=== PATIENT | female | born 1945 | race Caucasian/White ===

== ENCOUNTER 2021-05-11 11:50 | Inpatient (IN) | payer MEDICARE ==
[~2021-05-11] VITALS: Ht 170.2 cm; Wt 59.4 kg
[~2021-05-11 11:50] MED LIST: BUPR150T21 PO
[2021-05-11] MEDS ORDERED: FLUO20CA20 PO (13:08)
[2021-05-11] MEDS ORDERED: OLAN5TAB67 PO ×2 (13:08)
[2021-05-11] MEDS ORDERED: DIVA-51 PO (13:08)
[2021-05-11] MEDS ORDERED: FERR325T20 PO (13:08)
[2021-05-11] MEDS ORDERED: DIVA125T28 PO (13:08)
[2021-05-11] MEDS ORDERED: GINK120T3 PO (13:08)
[2021-05-11] MEDS ORDERED: CLON0.1T PO (13:08)
[2021-05-11] MEDS ORDERED: ROSUVASTATIN CA20 MG PO (13:08)
[2021-05-11] MEDS ORDERED: MAGN250T10 PO (13:08)
[2021-05-11] MEDS ORDERED: ACET325T21 PO (13:08)
[2021-05-11] MEDS ORDERED: DOCU100T11 PO (13:08)
[2021-05-11] MEDS ORDERED: METO25TA4 PO (13:08)
[2021-05-11] MEDS ORDERED: ASCO100019 PO (13:08)
[2021-05-11] MEDS ORDERED: ALPR0.5T6 PO ×2 (13:08)
[2021-05-11] MEDS ORDERED: OMEP20TA63 PO (13:08)
[2021-05-11] MEDS ORDERED: MULT-98 PO (13:08)
[2021-05-11] MEDS ORDERED: OMEG-33 PO (13:08)
[2021-05-11] MEDS ORDERED: LEVO25TA4 PO (13:08)
[2021-05-11 13:10] VITALS: BP 131/69
[2021-05-11] MEDS ORDERED: ACETAMINOPHEN 325 MG TABLET PO PRN (13:15)
[2021-05-11] MEDS ORDERED: OLANZapine 5 MG TABLET PO PRN (13:15)
[2021-05-11] MEDS ORDERED: MAGNESIUM HYDROXIDE 2,400 MG/30 ML ORAL.SUSP. PO PRN (13:30)
[2021-05-11] MEDS ORDERED: MAG HYDROX/AL HYDROX/SIMETH 30 ML ORAL.SUSP PO PRN (13:30)
[2021-05-11] MEDS ORDERED: METHYL SALICYLATE/MENTHOL TOPICAL OINTMENT 57GM TUBE. TP PRN (13:30)
[2021-05-11 16:00] VITALS: BP 121/60
[2021-05-11] MEDS ORDERED: GINKGO BILOBA 120 MG PO SCH (17:00)
[2021-05-11] MEDS: METOPROLOL TART IMMED RELEASE 25 MG TABLET. PO SCH (17:54)
[2021-05-11] MEDS: DOCUSATE SODIUM 100 MG CAPSULE PO SCH (17:54)
[2021-05-11] MEDS: cloNIDine HCL 0.1 MG TABLET PO SCH (17:56)
[2021-05-11 20:00] VITALS: BP 136/71
[2021-05-11] MEDS: OLANZapine 5 MG TABLET PO SCH (20:27)
[2021-05-11] MEDS ORDERED: DIVALPROEX SODIUM 250 MG TABLET.DR. PO SCH (21:00)
[2021-05-11] MEDS ORDERED: ALPRAZolam 0.5 MG TABLET PO SCH (21:00)
[2021-05-12] MEDS: LEVOTHYROXINE 25 MCG TABLET. PO SCH (06:37)
[2021-05-12] MEDS: FERROUS SULFATE 325 MG TABLET. PO SCH (08:46)
[2021-05-12] MEDS: METOPROLOL TART IMMED RELEASE 25 MG TABLET. PO SCH ×2 (08:46→17:55)
[2021-05-12] MEDS: buPROPion XL 150 MG TAB.ER.24H PO SCH (08:46)
[2021-05-12] MEDS: cloNIDine HCL 0.1 MG TABLET PO SCH ×2 (08:46→17:56)
[2021-05-12] MEDS: MAGNESIUM OXIDE 400 MG TABLET PO SCH (08:46)
[2021-05-12] MEDS: OLANZapine 5 MG TABLET PO SCH ×2 (08:46→21:21)
[2021-05-12] MEDS: OMEGA-3 FATTY ACIDS/FISH OIL 1,000 MG CAPSULE. PO SCH (08:46)
[2021-05-12] MEDS: PANTOPRAZOLE 40 MG TABLET. PO SCH (08:46)
[2021-05-12] MEDS: MULTIVITAMIN with MINERAL TABLET. PO SCH (08:46)
[2021-05-12] MEDS: ATORVASTATIN CALCIUM 20 MG TABLET PO SCH (08:47)
[2021-05-12] MEDS ORDERED: FLU VACC QUAD 21-22 (6MOS+) PF 0.5 ML SYRINGE. VAX IM ONE (09:00)
[2021-05-12] MEDS ORDERED: DIVALPROEX SODIUM 125 MG TABLET.DR. PO SCH (09:00)
[2021-05-12 11:23] LABS: BASO # 0.1 x10^3/uL (0.0-0.2); BASO % 1 % (0-3); EOS # 0.2 x10^3/uL (0.0-0.7); EOS % 3 % (0-3); HEMATOCRIT 33.1 % (36.0-47.0); HEMOGLOBIN 10.8 g/dL (12.0-15.5); LYMPH # 0.7 x10^3/uL (1.0-4.8); LYMPH % 11 % (24-48); MEAN CORPUSCULAR HEMOGLOBIN 29 pg (25-35); MEAN CORPUSCULAR HGB CONC 33 g/dL (31-37); MEAN CORPUSCULAR VOLUME 90 fL (79-100); MONO # 0.5 x10^3/uL (0.0-1.1); MONO % 9 % (0-9); NEUT # 4.5 x10^3uL (1.8-7.7); NEUT % 76 % (31-73); PLATELET COUNT 272 x10^3/uL (140-400); RED BLOOD COUNT 3.68 x10^6/uL (3.50-5.40); RED CELL DISTRIBUTION WIDTH 15.4 % (11.5-14.5); WHITE BLOOD COUNT 5.9 x10^3/uL (4.0-11.0)
[2021-05-12 11:33] LABS: ALBUMIN 3.2 g/dL (3.4-5.0); ALBUMIN/GLOBULIN RATIO 0.7 (1.0-1.7); ALK PHOS 67 U/L (46-116); ALT (SGPT) 32 U/L (14-59); ANION GAP 9 (6-14); AST (SGOT) 28 U/L (15-37); BLOOD UREA NITROGEN 21 mg/dL (7-20); BUN/CREATININE RATIO 19 (6-20); CALCIUM 9.2 mg/dL (8.5-10.1); CARBON DIOXIDE 28 mmol/L (21-32); CHLORIDE 105 mmol/L (98-107); CREATININE 1.1 mg/dL (0.6-1.0); GFR 48.3; GLUCOSE 117 mg/dL (70-99); MAGNESIUM 2.1 mg/dL (1.8-2.4); SODIUM 142 mmol/L (136-145); TOTAL BILIRUBIN 0.3 mg/dL (0.2-1.0); TOTAL PROTEIN 7.7 g/dL (6.4-8.2)
[2021-05-12 11:34] LABS: VAL ACID 37 mcg/mL (50-100)
--- NOTE | 2021-05-12 14:48 | RAD ---
EXAM: Head CT without contrast. HISTORY: Altered mental status. TECHNIQUE: Computed tomographic images of the head were obtained without contrast. *One or more of the following individualized dose reduction techniques were utilized for this examina tion: 1. Automated exposure control. 2. Adjustment of the mA and/or kV according to patient size. 3. Use of iterative reconstruction technique. COMPARISON: None. FINDINGS: There is no acute or subacute extra-axial or intraparenchymal hemorrhage. There is no mass effect or midline shift. There is no hydrocephalus. There are areas of decreased attenuation within the cerebral white matter, nonspecific and likely rel ated to chronic small vessel disease. This is predominantly within the right parietal distribution. The visualized portions of the orbits, paranasal sinuses and mastoid air cells are unremarkable. No s uspicious calvarial lesion is seen. IMPRESSION: 1. No acute intracranial finding. Note is made that MRI is more sensitive for acute infarction. 2. Bilateral cerebral white matter changes, most commonly due to chronic small vessel disease in al ents of this age. Electronically signed by: Shazia Diamond MD (05/12/2021 2:45 PM) [facility]
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
[2021-05-12 15:11] LABS: BACTERIA,URINE FEW /HPF (0-FEW); BILIRUBIN,URINE NEG (NEG); CLARITY,URINE HAZY; COLOR,URINE YELLOW; GLUCOSE,URINE NEG (NEG); NITRITE,URINE NEG (NEG); RBC,URINE OCC /HPF (0-2); SQUAMOUS EPITHELIAL CELL,UR FEW /LPF; UROBILINOGEN,URINE 0.2 mg/dL (0.2 mg/dL)
[2021-05-12 16:20] VITALS: BP 118/71
[2021-05-12] MEDS: ASCORBIC ACID 1,000 MG TABLET PO SCH (17:55)
[2021-05-12] MEDS: DOCUSATE SODIUM 100 MG CAPSULE PO SCH (17:55)
[2021-05-12 18:55] LABS: THYROID STIM HORMONE (TSH) 0.008 uIU/mL (0.358-3.740)
[2021-05-12] MEDS: DIVALPROEX SODIUM 125 MG TABLET.DR. PO SCH (21:20)
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
[2021-05-13 02:07] LABS: THYROXINE 10.8 ug/dL (4.5-12.0)
--- NOTE | 2021-05-13 05:32 | PSYEV ---
DATE OF SERVICE: 05/12/2021 REASON FOR ADMISSION: This 75-year-old female was admitted from [facility] because of behavior problems, being restless, wandering highly anxious, exit-seeking behaviors, called 911. The patient also not sleeping well, having auditory hallucinations. The patient is seen by the primary care doctor. Apparently, she has been treated with antidepressants and made some changes recently. The patient also having multiple physical problems. The patient apparently unable to sleep. The patient apparently did not respond to any change in the medications and failed outpatient treatment. On admission, she was calm, cooperative and pleasantly confused. She was oriented to self and place. PAST PSYCHIATRIC HISTORY: The patient apparently has been treated with psychotropic drugs including Xanax, Wellbutrin that was discontinued recently and also Depakote and Prozac and also Zyprexa. The patient's son is responsible for her care. She has been seeing Dr. Purdy. Recently, she had a 6-month checkup and also she was hospitalized to [facility] for abdominal pain in the past few months. The patient also diagnosed with B-cell lymphoma. The patient has a history of depression, having frequent crying spells. The patient admits to feeling lonely, but denied of any suicidal or homicidal thoughts. PAST MEDICATIONS: Include Wellbutrin-XL 150 mg daily. The dose was gradually decreased and discontinued. The patient is also on Prozac 20 mg daily, mirtazapine 15 mg at night. PAST MEDICAL HISTORY: The patient has history of malignant neoplasm of colon, unspecified; hyperlipidemia; essential hypertension; atherosclerotic heart disease without angina pectoris; abdominal aortic aneurysm and rupture and also mild cognitive impairment. HISTORY OF PRESENT ILLNESS: The patient was pleasant during the assessment. She did know where she was. She was oriented to her surroundings, but the patient had problems with the time span. The patient's speech was clear, monotone, decreased rate and rhythm. Affect and mood showed she is anxious, but not depressed. The patient did not show any involuntary movements. Her speech was clear, monotone, decreased rate and rhythm. Affect and mood showed withdrawn, anxious, periods of agitation, problems with sleep and no change in her appetite. The patient has been treated for depression in the past and has a diagnosis of major depression, single episode. PSYCHOSOCIAL HISTORY: The patient is unable to give much information. Her son is the DPOA. The patient denies of any alcohol or substance abuse. No history of any sexual trauma. MENTAL STATUS EXAMINATION: The patient appeared to be of her stated age, able to make eye contact. The patient's behavior was appropriate during the assessment. Her speech is clear, monotone, decreased rate and rhythm. Affect and mood showed she is depressed, withdrawn and also indifferent to her surroundings. The patient also has episodes where she becomes very agitated, also paranoid and delusional, recently called 911. The patient denies any visual hallucinations or auditory hallucinations. She is oriented to surroundings. The patient has significant problems with memory, mostly recent. The patient is not expressing any suicidal or homicidal thoughts. The patient lacks insight to her problems. Judgment impaired. Insight limited. The patient appears to be functioning on an average level of intelligence. STRENGTH: In good health, supportive family. Son is her DPOA. WEAKNESSES: The patient apparently having problems with mood swings, depression, also irritability, chronic insomnia and also dealing with multiple physical problems. ADMITTING DIAGNOSES: AXIS I: 1. Major depression, single episode, moderate to severe with psychotic symptoms. 2. Cognitive disorder, unspecified. 3. Generalized anxiety disorder. AXIS II: None. AXIS III: Listed above. INITIAL TREATMENT PLAN: The patient will be hospitalized as an inpatient at [facility] for further evaluation and diagnostic workup. The patient will continue on her current medications including Depakote 125 mg in the morning and 250 mg at night. The patient is also on Zyprexa 5 mg twice a day that was decreased to 7.5 mg at night. The patient's other medications include metoprolol 25 mg daily, Prilosec 10 mg daily, clonidine 0.1 mg twice a day, levothyroxine 25 mcg daily, rosuvastatin 20 mg daily, Pepcid 20 mg daily, mirtazapine 15 mg daily. LENGTH OF STAY: 7 to 10 days. PLANS: The patient will continue with the current medications. The patient will be seen by the psychiatrist daily. Follow up by Dr. Bentley, also request for a neurology consult. KIMMY DR: Phillip TID: [id number]
[2021-05-13] MEDS: LEVOTHYROXINE 25 MCG TABLET. PO SCH (05:53)
[2021-05-13 06:38] VITALS: BP 149/71
[2021-05-13] MEDS: PANTOPRAZOLE 40 MG TABLET. PO SCH (08:52)
[2021-05-13] MEDS: cloNIDine HCL 0.1 MG TABLET PO SCH ×2 (08:52→17:32)
[2021-05-13] MEDS: MULTIVITAMIN with MINERAL TABLET. PO SCH (08:53)
[2021-05-13] MEDS: MAGNESIUM OXIDE 400 MG TABLET PO SCH (08:53)
[2021-05-13] MEDS: FERROUS SULFATE 325 MG TABLET. PO SCH (08:53)
[2021-05-13] MEDS: METOPROLOL TART IMMED RELEASE 25 MG TABLET. PO SCH ×2 (08:53→17:31)
[2021-05-13] MEDS: OLANZapine 5 MG TABLET PO SCH ×2 (08:53→20:32)
[2021-05-13] MEDS: OMEGA-3 FATTY ACIDS/FISH OIL 1,000 MG CAPSULE. PO SCH (08:54)
[2021-05-13] MEDS: ATORVASTATIN CALCIUM 20 MG TABLET PO SCH (08:54)
[2021-05-13] MEDS: DIVALPROEX SODIUM 250 MG TABLET.DR. PO SCH (08:54)
[2021-05-13] MEDS: ASCORBIC ACID 1,000 MG TABLET PO SCH (09:00)
--- NOTE | 2021-05-13 10:11 | EKG ---
[address] [address] Test Date: 2021-05-13 Test Time: 05:56:09 Pat Name: ALBERTINA MCCOY Department: Room: [address] [place] [address] Gender: F Train Starter: : [id number] Requested By: KAYCEE GAMBINO Order Number: [id number] Reading MD: Measurements Intervals [place] Rate: 61 P: 46 IA: 160 QRS: 0 QRSD: 80 T: 23 QT: 424 QTc: 428 Interpretive Statements SINUS RHYTHM LEFTWARD AXIS OTHERWISE NORMAL ECG RI6.01 No previous ECG available for comparison
[2021-05-13 15:48] VITALS: BP 114/72
[2021-05-13] MEDS: DOCUSATE SODIUM 100 MG CAPSULE PO SCH (17:31)
[2021-05-13] MEDS: DIVALPROEX SODIUM 125 MG TABLET.DR. PO SCH (20:33)
[2021-05-14] MEDS: ALPRAZolam 0.5 MG TABLET PO PRN ×2 (01:23→23:06)
--- NOTE | 2021-05-14 01:49 | PN ---
DATE: 05/13/2021 SUBJECTIVE: The patient was seen today, met with the staff. Chart was reviewed and also covering for Dr. Packer. Staff reports no major behavior problems except for disorganized thinking, wandering, but social, also intrusive. The patient is able to walk steady. No falls. OBSERVATION: VITAL SIGNS: Temperature 96.5, blood pressure 114/72, pulse 64, respirations 18, O2 sat 96%. The patient's appetite normal. CURRENT MEDICATIONS: Include Depakote 250 mg daily and 375 mg at night, olanzapine 7.5 mg twice a day, Prozac 20 mg daily, Wellbutrin 150 mg daily. She is also on olanzapine 2.5 mg twice a day p.r.n. and also Xanax 0.5 mg every 4 hours p.r.n. The patient is not exhibiting any side effects to medications. ASSESSMENT: 1. Major depressive disorder, single episode, moderate to severe with psychotic features. 2. Cognitive disorder, unspecified. 3. Generalized anxiety disorder. PLAN: To continue with treatment. LENGTH OF STAY: 7-[address]: Phillip TID: [id number]
[2021-05-14] MEDS: LEVOTHYROXINE 25 MCG TABLET. PO SCH (05:54)
[2021-05-14 06:23] VITALS: BP 133/75
[2021-05-14] MEDS: ATORVASTATIN CALCIUM 20 MG TABLET PO SCH (09:40)
[2021-05-14] MEDS: DIVALPROEX SODIUM 250 MG TABLET.DR. PO SCH (09:41)
[2021-05-14] MEDS: buPROPion XL 150 MG TAB.ER.24H PO SCH (09:41)
[2021-05-14] MEDS: ASCORBIC ACID 1,000 MG TABLET PO SCH (09:41)
[2021-05-14] MEDS: FERROUS SULFATE 325 MG TABLET. PO SCH (09:41)
[2021-05-14] MEDS: METOPROLOL TART IMMED RELEASE 25 MG TABLET. PO SCH ×2 (09:42→16:52)
[2021-05-14] MEDS: OLANZapine 5 MG TABLET PO SCH ×2 (09:43→20:35)
[2021-05-14] MEDS: cloNIDine HCL 0.1 MG TABLET PO SCH ×2 (09:44→16:53)
[2021-05-14] MEDS: MULTIVITAMIN with MINERAL TABLET. PO SCH (09:44)
[2021-05-14] MEDS: OMEGA-3 FATTY ACIDS/FISH OIL 1,000 MG CAPSULE. PO SCH (09:44)
[2021-05-14] MEDS: MAGNESIUM OXIDE 400 MG TABLET PO SCH (09:45)
[2021-05-14] MEDS: PANTOPRAZOLE 40 MG TABLET. PO SCH (09:45)
[2021-05-14 15:43] VITALS: BP 118/64
[2021-05-14] MEDS: DOCUSATE SODIUM 100 MG CAPSULE PO SCH (16:52)
[2021-05-14] MEDS: DIVALPROEX SODIUM 125 MG TABLET.DR. PO SCH (20:34)
--- NOTE | 2021-05-14 22:52 | PN ---
DATE: 05/14/2021 SUBJECTIVE: The patient was seen today, met with the staff, chart reviewed. The patient is wandering, high energy level, also exit-seeking behaviors. OBSERVATION: VITAL SIGNS: Temperature 96.7, blood pressure 133/75, pulse 56, respirations 16, O2 sat 99%. Slept about 3 hours last night. The patient's appetite is fair. CURRENT MEDICATIONS: Depakote 250 mg daily and 375 mg at night, olanzapine 7.5 mg twice a day, Cymbalta 20 mg daily, Wellbutrin 150 mg daily and also, olanzapine 2.5 mg twice a day, p.r.n., Xanax 0.5 mg q. 4 hours p.r.n. LABORATORY DATA: The patient's lab reviewed. ASSESSMENT: 1. Major depressive disorder, single episode, moderate to severe with psychotic features. 2. Cognitive disorder, unspecified. 3. Generalized anxiety disorder. PLAN: To continue with the treatment. LENGTH OF STAY: 7-[address]: Phillip TID: [id number]
[2021-05-15] MEDS: LEVOTHYROXINE 25 MCG TABLET. PO SCH (05:18)
[2021-05-15 05:54] VITALS: BP 152/71
[2021-05-15 08:15] LABS: ALBUMIN 3.3 g/dL (3.4-5.0); ALBUMIN/GLOBULIN RATIO 0.7 (1.0-1.7); CALCIUM 9.4 mg/dL (8.5-10.1); CREATININE 1.1 mg/dL (0.6-1.0); GFR 48.3; POTASSIUM 3.7 mmol/L (3.5-5.1); TOTAL BILIRUBIN 0.3 mg/dL (0.2-1.0); TOTAL PROTEIN 7.8 g/dL (6.4-8.2)
[2021-05-15] MEDS: PANTOPRAZOLE 40 MG TABLET. PO SCH (08:51)
[2021-05-15] MEDS: cloNIDine HCL 0.1 MG TABLET PO SCH ×2 (08:51→17:54)
[2021-05-15] MEDS: MULTIVITAMIN with MINERAL TABLET. PO SCH (08:52)
[2021-05-15] MEDS: ASCORBIC ACID 1,000 MG TABLET PO SCH (08:52)
[2021-05-15] MEDS: METOPROLOL TART IMMED RELEASE 25 MG TABLET. PO SCH ×2 (08:52→17:55)
[2021-05-15] MEDS: OMEGA-3 FATTY ACIDS/FISH OIL 1,000 MG CAPSULE. PO SCH (08:52)
[2021-05-15] MEDS: MAGNESIUM OXIDE 400 MG TABLET PO SCH (08:52)
[2021-05-15] MEDS: FERROUS SULFATE 325 MG TABLET. PO SCH (08:52)
[2021-05-15] MEDS: DIVALPROEX SODIUM 250 MG TABLET.DR. PO SCH (08:52)
[2021-05-15] MEDS: OLANZapine 5 MG TABLET PO SCH ×2 (08:52→20:45)
[2021-05-15] MEDS: ATORVASTATIN CALCIUM 20 MG TABLET PO SCH (08:53)
[2021-05-15 15:35] VITALS: BP_SYST 110; BP_SYST 132; BP_DIAS 72; BP_DIAS 77
[2021-05-15] MEDS: DOCUSATE SODIUM 100 MG CAPSULE PO SCH (17:54)
[2021-05-15] MEDS: DIVALPROEX SODIUM 125 MG TABLET.DR. PO SCH (20:45)
--- NOTE | 2021-05-16 03:00 | PN ---
DATE: 05/15/2021 SUBJECTIVE: The patient was seen today, met with the staff, chart reviewed. Staff reports continued behavior problems, wandering, disorganized thinking, disrobing, restless, but medication compliant and also interact with the staff. The patient is overall confused. The patient is lacking insight to her problems. OBSERVATION: VITAL SIGNS: Temperature 97, blood pressure 152/71, pulse 58, respirations 16, O2 sat 97%. GENERAL: Slept about 6 hours last night. The patient's appetite is fair. LABORATORY DATA: The patient's lab reviewed. CURRENT MEDICATIONS: Include Depakote 250 mg daily and 375 mg at night, olanzapine 7.5 mg twice a day, Fluoxetine 20 mg daily, Wellbutrin 150 mg daily and also on olanzapine 2.5 mg twice a day p.r.n., also on Xanax 0.5 mg every 4 hours p.r.n. ASSESSMENT: 1. Major depressive disorder, single episode, moderate to severe with psychotic features. 2. Cognitive disorder, unspecified. 3. Generalized anxiety disorder. PLAN: To continue with the treatment. LENGTH OF STAY: Seven to [address]: Phillip TID: [id number] MTDD
[2021-05-16] MEDS: LEVOTHYROXINE 25 MCG TABLET. PO SCH (05:23)
[2021-05-16 06:28] VITALS: BP 151/67
[2021-05-16 06:41] LABS: BASO # 0.1 x10^3/uL (0.0-0.2); BASO % 1 % (0-3); EOS # 0.3 x10^3/uL (0.0-0.7); EOS % 6 % (0-3); HEMATOCRIT 28.3 % (36.0-47.0); HEMOGLOBIN 9.3 g/dL (12.0-15.5); LYMPH # 0.8 x10^3/uL (1.0-4.8); LYMPH % 19 % (24-48); MEAN CORPUSCULAR HEMOGLOBIN 30 pg (25-35); MEAN CORPUSCULAR HGB CONC 33 g/dL (31-37); MEAN CORPUSCULAR VOLUME 91 fL (79-100); MONO # 0.6 x10^3/uL (0.0-1.1); MONO % 15 % (0-9); NEUT # 2.5 x10^3uL (1.8-7.7); NEUT % 59 % (31-73); PLATELET COUNT 226 x10^3/uL (140-400); RED BLOOD COUNT 3.12 x10^6/uL (3.50-5.40); RED CELL DISTRIBUTION WIDTH 15.4 % (11.5-14.5); WHITE BLOOD COUNT 4.2 x10^3/uL (4.0-11.0)
[2021-05-16 06:51] LABS: VAL ACID 53 mcg/mL (50-100)
[2021-05-16] MEDS: cloNIDine HCL 0.1 MG TABLET PO SCH ×2 (08:23→17:40)
[2021-05-16] MEDS: PANTOPRAZOLE 40 MG TABLET. PO SCH (08:23)
[2021-05-16] MEDS: ATORVASTATIN CALCIUM 20 MG TABLET PO SCH (08:24)
[2021-05-16] MEDS: ASCORBIC ACID 1,000 MG TABLET PO SCH (08:24)
[2021-05-16] MEDS: buPROPion XL 150 MG TAB.ER.24H PO SCH (08:24)
[2021-05-16] MEDS: METOPROLOL TART IMMED RELEASE 25 MG TABLET. PO SCH ×2 (08:24→17:39)
[2021-05-16] MEDS: MAGNESIUM OXIDE 400 MG TABLET PO SCH (08:24)
[2021-05-16] MEDS: MULTIVITAMIN with MINERAL TABLET. PO SCH (08:24)
[2021-05-16] MEDS: OMEGA-3 FATTY ACIDS/FISH OIL 1,000 MG CAPSULE. PO SCH (08:24)
[2021-05-16] MEDS: DIVALPROEX SODIUM 250 MG TABLET.DR. PO SCH (08:25)
[2021-05-16] MEDS: OLANZapine 5 MG TABLET PO SCH ×2 (08:25→20:25)
[2021-05-16] MEDS: FERROUS SULFATE 325 MG TABLET. PO SCH (08:25)
[2021-05-16 16:38] VITALS: BP 131/72
[2021-05-16] MEDS: DOCUSATE SODIUM 100 MG CAPSULE PO SCH (17:39)
[2021-05-16] MEDS: DIVALPROEX SODIUM 125 MG TABLET.DR. PO SCH (20:25)
--- NOTE | 2021-05-17 02:42 | PN ---
DATE: 05/16/2021 SUBJECTIVE: The patient was seen today, met with the staff, chart reviewed. Staff reports increased social withdrawal, tend to isolate in her room, disorganized thinking and also tend to wander and sometimes pacing, sometimes extremely restless. The patient has been medication compliant. The patient is increasingly confused, difficult to redirect. The patient is unable to participate in any activities. The patient also exhibiting significant cognitive deficits. OBSERVATION: VITAL SIGNS: Temperature 97.3, blood pressure 151/67, pulse 59, respirations 16, O2 sat 97%. GENERAL: Slept about 5 hours last night. Appetite fluctuates. LABORATORY DATA: The patient's lab reviewed. CURRENT MEDICATIONS: The patient's current medications include Depakote 250 mg daily and 375 mg at night, olanzapine 7.5 mg twice a day, Fluoxetine 20 mg daily and olanzapine 2.5 mg twice a day p.r.n. She is also on Xanax 0.5 mg q. 4 hours p.r.n. The patient's Wellbutrin was discontinued as planned. ASSESSMENT: 1. Major depressive disorder, single episode, moderate to severe with psychotic features. 2. Cognitive disorder, unspecified. 3. Generalized anxiety disorder. PLAN: Continue with treatment. LENGTH OF STAY: Seven to ten days. [address]RI[address]IANO DR: Phillip TID: [id number] MTDD
[2021-05-17] MEDS: LEVOTHYROXINE 25 MCG TABLET. PO SCH (05:54)
[2021-05-17 06:41] VITALS: BP 146/69
[2021-05-17] MEDS: PANTOPRAZOLE 40 MG TABLET. PO SCH (08:17)
[2021-05-17] MEDS: METOPROLOL TART IMMED RELEASE 25 MG TABLET. PO SCH ×2 (08:17→17:03)
[2021-05-17] MEDS: cloNIDine HCL 0.1 MG TABLET PO SCH ×2 (08:17→17:03)
[2021-05-17] MEDS: DIVALPROEX SODIUM 250 MG TABLET.DR. PO SCH (08:17)
[2021-05-17] MEDS: OLANZapine 5 MG TABLET PO SCH ×2 (08:18→21:51)
[2021-05-17] MEDS: ATORVASTATIN CALCIUM 20 MG TABLET PO SCH (08:18)
[2021-05-17] MEDS: ASCORBIC ACID 1,000 MG TABLET PO SCH (09:00)
[2021-05-17] MEDS: FERROUS SULFATE 325 MG TABLET. PO SCH (09:00)
[2021-05-17] MEDS: OMEGA-3 FATTY ACIDS/FISH OIL 1,000 MG CAPSULE. PO SCH (09:00)
[2021-05-17] MEDS: MULTIVITAMIN with MINERAL TABLET. PO SCH (09:00)
[2021-05-17] MEDS: MAGNESIUM OXIDE 400 MG TABLET PO SCH (09:00)
[2021-05-17] MEDS ORDERED: OLANZapine 5 MG TABLET PO PRN (09:45)
[2021-05-17] MEDS: LORazepam 1 MG TABLET PO PRN (10:52)
[2021-05-17 12:00] LABS: BILIRUBIN,URINE NEG (NEG); CLARITY,URINE CLEAR; COLOR,URINE YELLOW; GLUCOSE,URINE NEG (NEG); NITRITE,URINE NEG (NEG); RBC,URINE 0 /HPF (0-2)
[2021-05-17 12:01] LABS: BACTERIA,URINE FEW /HPF (0-FEW); SQUAMOUS EPITHELIAL CELL,UR OCC /LPF
[2021-05-17 15:23] VITALS: BP_SYST 126; BP_SYST 142; BP_DIAS 78; BP_DIAS 85
[2021-05-17] MEDS: DOCUSATE SODIUM 100 MG CAPSULE PO SCH (17:03)
[2021-05-17] MEDS: DIVALPROEX SODIUM 125 MG TABLET.DR. PO SCH (21:53)
--- NOTE | 2021-05-18 03:44 | PN ---
DATE: 05/17/2021 SUBJECTIVE: The patient was seen today, met with the staff and chart reviewed. Also discussed with the social contact worker with regard to the patient's current mental status and continued authorization for inpatient treatment. Apparently insurance company wanted the doctors' review. The patient continues to have problems. She is hyperverbal, agitated, constantly pacing and also having visual hallucinations, seeing a dog and also confused, not able to orient herself. The patient's gait is normal. OBSERVATION: VITAL SIGNS: Temperature 97.8, blood pressure 146/69, pulse 72, respirations 18, O2 sat 95%. GENERAL: Slept about less than an hour last night. LABORATORY DATA: The patient's lab reviewed. CURRENT MEDICATIONS: Depakote 250 mg daily and 375 mg at night, olanzapine 7.5 mg twice a day, Prozac 20 mg daily and olanzapine 2.5 mg twice a day p.r.n. She is also on Xanax 0.5 mg q. 4 hours p.r.n. ASSESSMENT: 1. Major depressive disorder, single episode, moderate to severe with psychotic features. 2. Cognitive disorder, unspecified. 3. Generalized anxiety disorder. PLAN: To continue with treatment. LENGTH OF STAY: Seven days. CHRISTIANO/LIVAN DR: Phillip TID: [id number]
[2021-05-18] MEDS: LEVOTHYROXINE 25 MCG TABLET. PO SCH (05:48)
[2021-05-18 06:44] VITALS: BP 169/69
[2021-05-18] MEDS: PANTOPRAZOLE 40 MG TABLET. PO SCH (08:32)
[2021-05-18] MEDS: cloNIDine HCL 0.1 MG TABLET PO SCH ×2 (08:32→16:58)
[2021-05-18] MEDS: MAGNESIUM OXIDE 400 MG TABLET PO SCH (08:32)
[2021-05-18] MEDS: METOPROLOL TART IMMED RELEASE 25 MG TABLET. PO SCH ×2 (08:33→16:58)
[2021-05-18] MEDS: OLANZapine 5 MG TABLET PO SCH ×2 (08:33→21:44)
[2021-05-18] MEDS: OMEGA-3 FATTY ACIDS/FISH OIL 1,000 MG CAPSULE. PO SCH (08:33)
[2021-05-18] MEDS: MULTIVITAMIN with MINERAL TABLET. PO SCH (08:33)
[2021-05-18] MEDS: ASCORBIC ACID 1,000 MG TABLET PO SCH (08:34)
[2021-05-18] MEDS: DIVALPROEX SODIUM 250 MG TABLET.DR. PO SCH (08:34)
[2021-05-18] MEDS: FERROUS SULFATE 325 MG TABLET. PO SCH (08:34)
[2021-05-18] MEDS: ATORVASTATIN CALCIUM 20 MG TABLET PO SCH (08:34)
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
[2021-05-18 16:06] VITALS: BP 112/49
[2021-05-18] MEDS: DOCUSATE SODIUM 100 MG CAPSULE PO SCH (16:58)
[2021-05-18] MEDS: MIRTAZAPINE 7.5 MG TABLET. PO SCH (21:44)
[2021-05-18] MEDS: DIVALPROEX SODIUM 125 MG TABLET.DR. PO SCH (21:44)
--- NOTE | 2021-05-18 22:19 | PDOC ---
Exam Note: Sam Note: Please also refer to the separate dictated note~for this date of service dictated separately.~Patient seen individually. Discussed the patient with Nursing staff reviewed the chart.~Reviewed interim history and current functioning. Reviewed vital signs,~Labs/ Radiology~and current medications noted below. Continue current treatment with the changes noted in the dictated addendum note Assessment: Vital Signs/I&O: Vital Signs Date Time Temp Pulse Resp B/P (MAP) Pulse Ox O2 Delivery O2 Flow Rate FiO2 05/18/21 16:58 70 112/49 05/18/21 16:06 98.2 20 96 05/16/21 06:28 Room Air I & O 05/17/21 05/17/21 05/18/21 15:00 23:00 07:00 Intake Total 360 ml 240 ml 240 ml Balance 360 ml 240 ml 240 ml Current Medications: Meds: Current Medications Medications (Trade) Dose Ordered Sig/Jordan Route PRN Reason Start Time Stop Time Status Last Admin Dose Admin Acetaminophen (Tylenol) 650 mg PRN Q4HRS PRN PO PAIN 05/11/21 13:15 05/16/21 13:53 Alprazolam (Xanax) 0.5 mg PRN Q4HRS PRN PO ANXIETY / AGITATION 05/11/21 13:15 05/17/21 09:41 DC 05/14/21 23:06 Alprazolam (Xanax) 0.5 mg QHS PO 05/11/21 21:00 05/12/21 13:43 DC 05/11/21 20:27 Ascorbic Acid (Vitamin C) 1,000 mg DAILY PO 05/12/21 09:00 05/18/21 08:34 Bupropion HCl (Wellbutrin Xl) 150 mg QODAY PO 05/12/21 09:00 05/16/21 09:01 DC 05/16/21 08:24 Clonidine HCl (Catapres) 0.1 mg BIDWMEALS PO 05/11/21 17:00 05/18/21 16:58 Divalproex Sodium (Depakote) 125 mg DAILY PO 05/12/21 09:00 05/12/21 13:43 DC 05/12/21 08:46 Divalproex Sodium (Depakote) 250 mg QHS PO 05/11/21 21:00 05/12/21 13:43 DC 05/11/21 20:29 Ferrous Sulfate (Feosol) 325 mg DAILY PO 05/12/21 09:00 05/18/21 08:34 Fluoxetine HCl (PROzac) 20 mg DAILY PO 05/12/21 09:00 05/18/21 08:34 Levothyroxine Sodium (Synthroid) 25 mcg DAILY06 PO 05/12/21 06:00 05/18/21 05:48 Metoprolol Tartrate (Lopressor) 25 mg BIDWMEALS PO 05/11/21 17:00 05/18/21 16:58 Olanzapine (ZyPREXA) 2.5 mg PRN BID PRN PO PSYCHOSIS 05/11/21 13:15 05/17/21 09:40 DC Olanzapine (ZyPREXA) 5 mg BID PO 05/11/21 21:00 05/12/21 13:43 DC 05/12/21 08:46 Docusate Sodium (Colace) 100 mg 1700 PO 05/11/21 17:00 05/18/21 16:58 Non-Formulary Medication (Ginkgo Biloba ) 120 mg BIDWMEALS PO 05/11/21 17:00 UNV Magnesium Oxide (Magnesium Oxide) 400 mg DAILY PO 05/12/21 09:00 05/18/21 08:32 Multivitamins/ Calcium (Thera-M Plus) 1 tab DAILY PO 05/12/21 09:00 05/18/21 08:33 Fish Oil (Fish Oil) 1,000 mg DAILY PO 05/12/21 09:00 05/18/21 08:33 Pantoprazole Sodium (Protonix) 40 mg DAILYAC PO 05/12/21 07:30 05/18/21 08:32 Atorvastatin Calcium (Lipitor) 80 mg DAILY PO 05/12/21 09:00 05/18/21 08:34 Multi-Ingredient Ointment (Analgesic [place]) 1 wendy PRN QID PRN TP MUSCLE PAIN 05/11/21 13:30 Al Hydroxide/Mg Hydroxide (Mylanta Plus Xs) 15 ml PRN AFTMEALHC PRN PO DYSPEPSIA 05/11/21 13:30 Magnesium Hydroxide (Milk Of Magnesia) 2,400 mg PRN QHS PRN PO CONSTIPATION 05/11/21 13:30 Influenza Virus Vaccine Quadrival (Flulaval Quad Syringe) 0.5 ml ONCE ONCE VAX IM 05/12/21 09:00 05/12/21 09:01 DC 05/12/21 08:49 Divalproex Sodium (Depakote) 375 mg QHS PO 05/12/21 21:00 05/17/21 16:53 DC 05/16/21 20:25 Divalproex Sodium (Depakote) 250 mg DAILY PO 05/13/21 09:00 05/18/21 08:34 Olanzapine (ZyPREXA) 7.5 mg BID PO 05/12/21 21:00 05/18/21 21:44 Olanzapine (ZyPREXA) 2.5 mg PRN Q2HR PRN PO PSYCHOSIS 05/17/21 09:45 05/17/21 10:39 DC Lorazepam (Ativan) 1 mg PRN TID PRN PO ANXIETY / AGITATION 05/17/21 09:45 05/17/21 10:52 Olanzapine (ZyPREXA ZYDIS) 2.5 mg PRN Q2HRS PRN PO PSYCHOSIS 05/17/21 10:45 Divalproex Sodium (Depakote) 500 mg QHS PO 05/17/21 21:00 05/18/21 21:44 Mirtazapine (Remeron) 7.5 mg QHS PO 05/18/21 21:00 05/18/21 21:44 Current Medications Medications (Trade) Dose Ordered Sig/Jordan Route PRN Reason Start Time Stop Time Status Last Admin Dose Admin Mirtazapine (Remeron) 7.5 mg QHS PO 05/18/21 21:00 05/18/21 21:44 I have reviewed the current psychotropics carefully including drug interactions. Risk benefit ratio favors no change other than as noted in my dictated progress note. Diagnosis: Problems: (1) Major neurocognitive disorder EDUARDO YBARRA MD May 18, 2021 22:18
[2021-05-19] MEDS: LEVOTHYROXINE 25 MCG TABLET. PO SCH (06:00)
[2021-05-19 06:07] VITALS: BP 120/64
[2021-05-19 06:19] LABS: BASO % 1 % (0-3); EOS # 0.3 x10^3/uL (0.0-0.7); EOS % 6 % (0-3); HEMATOCRIT 28.8 % (36.0-47.0); HEMOGLOBIN 9.3 g/dL (12.0-15.5); LYMPH % 20 % (24-48); MEAN CORPUSCULAR HEMOGLOBIN 30 pg (25-35); MEAN CORPUSCULAR HGB CONC 32 g/dL (31-37); MEAN CORPUSCULAR VOLUME 91 fL (79-100); MONO # 0.8 x10^3/uL (0.0-1.1); MONO % 16 % (0-9); NEUT # 2.8 x10^3uL (1.8-7.7); NEUT % 57 % (31-73); PLATELET COUNT 228 x10^3/uL (140-400); RED BLOOD COUNT 3.16 x10^6/uL (3.50-5.40); RED CELL DISTRIBUTION WIDTH 15.3 % (11.5-14.5); WHITE BLOOD COUNT 4.9 x10^3/uL (4.0-11.0)
[2021-05-19 06:31] LABS: ALBUMIN 2.5 g/dL (3.4-5.0); ALBUMIN/GLOBULIN RATIO 0.7 (1.0-1.7); CALCIUM 8.6 mg/dL (8.5-10.1); GFR 53.9; TOTAL BILIRUBIN 0.2 mg/dL (0.2-1.0); TOTAL PROTEIN 6.3 g/dL (6.4-8.2)
[2021-05-19] MEDS: MULTIVITAMIN with MINERAL TABLET. PO SCH (11:10)
[2021-05-19] MEDS: ASCORBIC ACID 1,000 MG TABLET PO SCH (11:10)
[2021-05-19] MEDS: OLANZapine 5 MG TABLET PO SCH (11:11)
[2021-05-19] MEDS: cloNIDine HCL 0.1 MG TABLET PO SCH ×2 (11:11→17:20)
[2021-05-19] MEDS: OMEGA-3 FATTY ACIDS/FISH OIL 1,000 MG CAPSULE. PO SCH (11:11)
[2021-05-19] MEDS: PANTOPRAZOLE 40 MG TABLET. PO SCH (11:11)
[2021-05-19] MEDS: MAGNESIUM OXIDE 400 MG TABLET PO SCH (11:11)
[2021-05-19] MEDS: FERROUS SULFATE 325 MG TABLET. PO SCH (11:11)
[2021-05-19] MEDS: METOPROLOL TART IMMED RELEASE 25 MG TABLET. PO SCH ×2 (11:11→17:20)
[2021-05-19] MEDS: DIVALPROEX SODIUM 250 MG TABLET.DR. PO SCH (11:12)
[2021-05-19] MEDS: ATORVASTATIN CALCIUM 20 MG TABLET PO SCH (11:12)
[2021-05-19 16:08] VITALS: BP 124/74
[2021-05-19] MEDS: DOCUSATE SODIUM 100 MG CAPSULE PO SCH (17:16)
[2021-05-19] MEDS: MIRTAZAPINE 7.5 MG TABLET. PO SCH (20:39)
[2021-05-19] MEDS: OLANZapine 2.5 MG TABLET PO SCH (20:39)
[2021-05-19] MEDS: risperiDONE 0.5 MG TABLET. PO SCH (20:39)
[2021-05-19] MEDS: DIVALPROEX SODIUM 125 MG TABLET.DR. PO SCH (20:40)
--- NOTE | 2021-05-19 22:10 | PDOC ---
Exam Note: Sam Note: Please also refer to the separate dictated note~for this date of service dictated separately.~Patient seen individually. Discussed the patient with Nursing staff reviewed the chart.~Reviewed interim history and current functioning. Reviewed vital signs,~Labs/ Radiology~and current medications noted below. Continue current treatment with the changes noted in the dictated addendum note Assessment: Vital Signs/I&O: Vital Signs Date Time Temp Pulse Resp B/P (MAP) Pulse Ox O2 Delivery O2 Flow Rate FiO2 05/19/21 17:20 65 124/74 05/19/21 16:08 97.4 14 94 05/16/21 06:28 Room Air I & O 05/18/21 05/18/21 05/19/21 15:00 23:00 07:00 Intake Total 430 ml 480 ml Balance 430 ml 480 ml Labs: Laboratory Tests Test 05/19/21 06:02 White Blood Count 4.9 x10^3/uL (4.0-11.0) Red Blood Count 3.16 x10^6/uL (3.50-5.40) L Hemoglobin 9.3 g/dL (12.0-15.5) L Hematocrit 28.8 % (36.0-47.0) L Mean Corpuscular Volume 91 fL (79-100) Mean Corpuscular Hemoglobin 30 pg (25-35) Mean Corpuscular Hemoglobin Concent 32 g/dL (31-37) Red Cell Distribution Width 15.3 % (11.5-14.5) H Platelet Count 228 x10^3/uL (140-400) Neutrophils (%) (Auto) 57 % (31-73) Lymphocytes (%) (Auto) 20 % (24-48) L Monocytes (%) (Auto) 16 % (0-9) H Eosinophils (%) (Auto) 6 % (0-3) H Basophils (%) (Auto) 1 % (0-3) Neutrophils # (Auto) 2.8 x10^3uL (1.8-7.7) Lymphocytes # (Auto) 1.0 x10^3/uL (1.0-4.8) Monocytes # (Auto) 0.8 x10^3/uL (0.0-1.1) Eosinophils # (Auto) 0.3 x10^3/uL (0.0-0.7) Basophils # (Auto) 0.0 x10^3/uL (0.0-0.2) Sodium Level 144 mmol/L (136-145) Potassium Level 4.0 mmol/L (3.5-5.1) Chloride Level 109 mmol/L (98-107) H Carbon Dioxide Level 29 mmol/L (21-32) Anion Gap 6 (6-14) Blood Urea Nitrogen 16 mg/dL (7-20) Creatinine 1.0 mg/dL (0.6-1.0) Estimated GFR (Cockcroft-Gault) 53.9 BUN/Creatinine Ratio 16 (6-20) Glucose Level 95 mg/dL (70-99) Calcium Level 8.6 mg/dL (8.5-10.1) Total Bilirubin 0.2 mg/dL (0.2-1.0) Aspartate Amino Transferase (AST) 96 U/L (15-37) H Alanine Aminotransferase (ALT) 60 U/L (14-59) H Alkaline Phosphatase 53 U/L (46-116) Total Protein 6.3 g/dL (6.4-8.2) L Albumin 2.5 g/dL (3.4-5.0) L Albumin/Globulin Ratio 0.7 (1.0-1.7) L Current Medications: Meds: Laboratory Tests Test 05/19/21 06:02 White Blood Count 4.9 x10^3/uL Red Blood Count 3.16 x10^6/uL Hemoglobin 9.3 g/dL Hematocrit 28.8 % Mean Corpuscular Volume 91 fL Mean Corpuscular Hemoglobin 30 pg Mean Corpuscular Hemoglobin Concent 32 g/dL Red Cell Distribution Width 15.3 % Platelet Count 228 x10^3/uL Neutrophils (%) (Auto) 57 % Lymphocytes (%) (Auto) 20 % Monocytes (%) (Auto) 16 % Eosinophils (%) (Auto) 6 % Basophils (%) (Auto) 1 % Neutrophils # (Auto) 2.8 x10^3uL Lymphocytes # (Auto) 1.0 x10^3/uL Monocytes # (Auto) 0.8 x10^3/uL Eosinophils # (Auto) 0.3 x10^3/uL Basophils # (Auto) 0.0 x10^3/uL Sodium Level 144 mmol/L Potassium Level 4.0 mmol/L Chloride Level 109 mmol/L Carbon Dioxide Level 29 mmol/L Anion Gap 6 Blood Urea Nitrogen 16 mg/dL Creatinine 1.0 mg/dL Estimated GFR (Cockcroft-Gault) 53.9 BUN/Creatinine Ratio 16 Glucose Level 95 mg/dL Calcium Level 8.6 mg/dL Total Bilirubin 0.2 mg/dL Aspartate Amino Transf (AST/SGOT) 96 U/L Alanine Aminotransferase (ALT/SGPT) 60 U/L Alkaline Phosphatase 53 U/L Total Protein 6.3 g/dL Albumin 2.5 g/dL Albumin/Globulin Ratio 0.7 Current Medications Medications (Trade) Dose Ordered Sig/Jordan Route PRN Reason Start Time Stop Time Status Last Admin Dose Admin Acetaminophen (Tylenol) 650 mg PRN Q4HRS PRN PO PAIN 05/11/21 13:15 05/16/21 13:53 Alprazolam (Xanax) 0.5 mg PRN Q4HRS PRN PO ANXIETY / AGITATION 05/11/21 13:15 05/17/21 09:41 DC 05/14/21 23:06 Alprazolam (Xanax) 0.5 mg QHS PO 05/11/21 21:00 05/12/21 13:43 DC 05/11/21 20:27 Ascorbic Acid (Vitamin C) 1,000 mg DAILY PO 05/12/21 09:00 05/19/21 11:10 Bupropion HCl (Wellbutrin Xl) 150 mg QODAY PO 05/12/21 09:00 05/16/21 09:01 DC 05/16/21 08:24 Clonidine HCl (Catapres) 0.1 mg BIDWMEALS PO 05/11/21 17:00 05/19/21 17:20 Divalproex Sodium (Depakote) 125 mg DAILY PO 05/12/21 09:00 05/12/21 13:43 DC 05/12/21 08:46 Divalproex Sodium (Depakote) 250 mg QHS PO 05/11/21 21:00 05/12/21 13:43 DC 05/11/21 20:29 Ferrous Sulfate (Feosol) 325 mg DAILY PO 05/12/21 09:00 05/19/21 11:11 Fluoxetine HCl (PROzac) 20 mg DAILY PO 05/12/21 09:00 05/19/21 11:11 Levothyroxine Sodium (Synthroid) 25 mcg DAILY06 PO 05/12/21 06:00 05/19/21 06:00 Metoprolol Tartrate (Lopressor) 25 mg BIDWMEALS PO 05/11/21 17:00 05/19/21 17:20 Olanzapine (ZyPREXA) 2.5 mg PRN BID PRN PO PSYCHOSIS 05/11/21 13:15 05/17/21 09:40 DC Olanzapine (ZyPREXA) 5 mg BID PO 05/11/21 21:00 05/12/21 13:43 DC 05/12/21 08:46 Docusate Sodium (Colace) 100 mg 1700 PO 05/11/21 17:00 05/19/21 17:16 Non-Formulary Medication (Ginkgo Biloba ) 120 mg BIDWMEALS PO 05/11/21 17:00 UNV Magnesium Oxide (Magnesium Oxide) 400 mg DAILY PO 05/12/21 09:00 05/19/21 11:11 Multivitamins/ Calcium (Thera-M Plus) 1 tab DAILY PO 05/12/21 09:00 05/19/21 11:10 Fish Oil (Fish Oil) 1,000 mg DAILY PO 05/12/21 09:00 05/19/21 11:11 Pantoprazole Sodium (Protonix) 40 mg DAILYAC PO 05/12/21 07:30 05/19/21 11:11 Atorvastatin Calcium (Lipitor) 80 mg DAILY PO 05/12/21 09:00 05/19/21 11:12 Multi-Ingredient Ointment (Analgesic [place]) 1 wendy PRN QID PRN TP MUSCLE PAIN 05/11/21 13:30 Al Hydroxide/Mg Hydroxide (Mylanta Plus Xs) 15 ml PRN AFTMEALHC PRN PO DYSPEPSIA 05/11/21 13:30 Magnesium Hydroxide (Milk Of Magnesia) 2,400 mg PRN QHS PRN PO CONSTIPATION 05/11/21 13:30 Influenza Virus Vaccine Quadrival (Flulaval Quad Syringe) 0.5 ml ONCE ONCE VAX IM 05/12/21 09:00 05/12/21 09:01 DC 05/12/21 08:49 Divalproex Sodium (Depakote) 375 mg QHS PO 05/12/21 21:00 05/17/21 16:53 DC 05/16/21 20:25 Divalproex Sodium (Depakote) 250 mg DAILY PO 05/13/21 09:00 05/19/21 11:12 Olanzapine (ZyPREXA) 7.5 mg BID PO 05/12/21 21:00 05/19/21 18:31 DC 05/19/21 11:11 Olanzapine (ZyPREXA) 2.5 mg PRN Q2HR PRN PO PSYCHOSIS 05/17/21 09:45 05/17/21 10:39 DC Lorazepam (Ativan) 1 mg PRN TID PRN PO ANXIETY / AGITATION 05/17/21 09:45 05/17/21 10:52 Olanzapine (ZyPREXA ZYDIS) 2.5 mg PRN Q2HRS PRN PO PSYCHOSIS 05/17/21 10:45 Divalproex Sodium (Depakote) 500 mg QHS PO 05/17/21 21:00 05/19/21 20:40 Mirtazapine (Remeron) 7.5 mg QHS PO 05/18/21 21:00 05/19/21 20:39 Olanzapine (ZyPREXA) 2.5 mg BID PO 05/19/21 21:00 05/19/21 20:39 Risperidone (RisperDAL) 0.5 mg QHS PO 05/19/21 21:00 05/19/21 20:39 Current Medications Medications (Trade) Dose Ordered Sig/Jordan Route PRN Reason Start Time Stop Time Status Last Admin Dose Admin Olanzapine (ZyPREXA) 2.5 mg BID PO 05/19/21 21:00 05/19/21 20:39 Risperidone (RisperDAL) 0.5 mg QHS PO 05/19/21 21:00 05/19/21 20:39 I have reviewed the current psychotropics carefully including drug interactions. Risk benefit ratio favors no change other than as noted in my dictated progress note. Diagnosis: Problems: (1) Major depressive disorder with psychotic features (2) Anxiety disorder, unspecified EDUARDO YBARRA MD May 19, 2021 22:10
--- NOTE | 2021-05-19 22:35 | CONS ---
DATE OF CONSULTATION: 05/18/2021 PSYCHIATRIC PROGRESS NOTE This is a late entry, date of service 05/18, covers elements not covered in my initial note of 05/18. I met with the patient in the evening at length and earlier in the day discussed the patient with the entire treatment team including CAREY Alexander, Laverne Patino Nikki, social service and Brody, activity therapy. Reviewed the patient's history and reviewed information from Dr. Cordova who had covered for me for the past 10 days while I was on vacation. IDENTIFYING DATA: Briefly, the patient is a 75-year-old female referred to us from the assisted living at [facility] with a diagnosis of major neurocognitive disorder with psychotic features and behavioral disturbance. 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 The patient has appeared intermittently manic with intermittent hallucinations and while at the facility she had marked insomnia, was hallucinating, restless, wandering, anxious, exit seeking, calling 911 to report she was being held against her will. Her behaviors have been deemed dangerous, unmanageable resulting in this referral. Currently, the patient continued to sleep poorly just about average 5 hours a night or less. Appetite 50% with ongoing intermittent hallucinations, manic symptoms. A repeat UA was contaminated, but repeat urine after that has reflex to culture, which may explain some of her symptoms consequent to a UTI. She is also being considered to move to different [facility] and [facility] when she is psychiatrically stabilized. Met with her in the hallway at length. REVIEW OF SYSTEMS: No CV, , pulmonary, eye, ENT system symptoms on review. Reliability poor. MENTAL STATUS EXAM: Oriented to herself. Insight, judgment, recent and remote memory, attention, concentration, fund of knowledge poor consistent with her diagnosis. She is paranoid, suspicious, anxious, restless, following me around even after I met with her at some length. Oblivious of her surroundings. LABORATORY DATA: Reviewed. 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 PLAN: Given her marked insomnia, we will start Remeron 7.5 mg p.o. at bedtime. She is on Zyprexa 7.5 mg b.i.d., but psychotic symptoms persist despite this. We will add Risperdal 0.25 mg at bedtime with a plan to increase this gradually and taper and stop the Zyprexa ultimately. I do feel Risperdal would be a more effective atypical antipsychotic than the Zyprexa, which she seemed to have failed at a fairly reasonable dosage. She remains on Depakote delayed release 250 mg a.m., 500 mg at bedtime with CBC, CMP, valproic acid level to be repeated on 05/20 and we will adjust this thereafter. Continue Prozac 20 mg a day, Ativan 1 mg t.i.d. p.r.n., but given her age and overall condition, we may reduce this and stop the benzodiazepine and perhaps continue the Zyprexa p.r.n. We will make further adjustments as clinically indicated. TOD DR: Emiliano TID: [id number]
[2021-05-20] MEDS: LORazepam 1 MG TABLET PO PRN ×2 (01:05→23:31)
[2021-05-20] MEDS: LEVOTHYROXINE 25 MCG TABLET. PO SCH (05:08)
[2021-05-20 06:05] VITALS: BP 135/75
[2021-05-20 07:03] LABS: BASO # 0.1 x10^3/uL (0.0-0.2); BASO % 1 % (0-3); EOS # 0.2 x10^3/uL (0.0-0.7); EOS % 3 % (0-3); HEMATOCRIT 32.6 % (36.0-47.0); HEMOGLOBIN 10.5 g/dL (12.0-15.5); LYMPH # 0.8 x10^3/uL (1.0-4.8); LYMPH % 11 % (24-48); MEAN CORPUSCULAR HEMOGLOBIN 29 pg (25-35); MEAN CORPUSCULAR HGB CONC 32 g/dL (31-37); MEAN CORPUSCULAR VOLUME 91 fL (79-100); MONO # 0.9 x10^3/uL (0.0-1.1); MONO % 14 % (0-9); NEUT # 4.9 x10^3uL (1.8-7.7); NEUT % 71 % (31-73); PLATELET COUNT 298 x10^3/uL (140-400); RED BLOOD COUNT 3.59 x10^6/uL (3.50-5.40); RED CELL DISTRIBUTION WIDTH 15.5 % (11.5-14.5); WHITE BLOOD COUNT 6.9 x10^3/uL (4.0-11.0)
[2021-05-20 07:17] LABS: ALBUMIN 2.9 g/dL (3.4-5.0); ALBUMIN/GLOBULIN RATIO 0.7 (1.0-1.7); ALK PHOS 61 U/L (46-116); ALT (SGPT) 74 U/L (14-59); ANION GAP 7 (6-14); AST (SGOT) 79 U/L (15-37); BLOOD UREA NITROGEN 20 mg/dL (7-20); BUN/CREATININE RATIO 20 (6-20); CALCIUM 8.9 mg/dL (8.5-10.1); CARBON DIOXIDE 29 mmol/L (21-32); CHLORIDE 107 mmol/L (98-107); GFR 53.9; GLUCOSE 107 mg/dL (70-99); POTASSIUM 4.4 mmol/L (3.5-5.1); SODIUM 143 mmol/L (136-145); TOTAL BILIRUBIN 0.2 mg/dL (0.2-1.0); TOTAL PROTEIN 7.2 g/dL (6.4-8.2)
[2021-05-20 07:21] LABS: VAL ACID 76 mcg/mL (50-100)
[2021-05-20] MEDS: ASCORBIC ACID 1,000 MG TABLET PO SCH (09:07)
[2021-05-20] MEDS: PANTOPRAZOLE 40 MG TABLET. PO SCH (09:07)
[2021-05-20] MEDS: MAGNESIUM OXIDE 400 MG TABLET PO SCH (09:07)
[2021-05-20] MEDS: MULTIVITAMIN with MINERAL TABLET. PO SCH (09:07)
[2021-05-20] MEDS: OMEGA-3 FATTY ACIDS/FISH OIL 1,000 MG CAPSULE. PO SCH (09:07)
[2021-05-20] MEDS: METOPROLOL TART IMMED RELEASE 25 MG TABLET. PO SCH ×2 (09:07→17:39)
[2021-05-20] MEDS: FERROUS SULFATE 325 MG TABLET. PO SCH (09:07)
[2021-05-20] MEDS: DIVALPROEX SODIUM 250 MG TABLET.DR. PO SCH (09:07)
[2021-05-20] MEDS: OLANZapine 2.5 MG TABLET PO SCH ×2 (09:07→20:13)
[2021-05-20] MEDS: cloNIDine HCL 0.1 MG TABLET PO SCH ×2 (09:08→17:40)
[2021-05-20] MEDS: ATORVASTATIN CALCIUM 20 MG TABLET PO SCH (09:08)
[2021-05-20 15:55] VITALS: BP 147/72
[2021-05-20] MEDS: DOCUSATE SODIUM 100 MG CAPSULE PO SCH (17:39)
[2021-05-20] MEDS: DIVALPROEX SODIUM 125 MG TABLET.DR. PO SCH (20:12)
[2021-05-20] MEDS: MIRTAZAPINE 7.5 MG TABLET. PO SCH (20:13)
[2021-05-20] MEDS: risperiDONE 0.5 MG TABLET. PO SCH (20:13)
--- NOTE | 2021-05-20 22:10 | PDOC ---
Exam Note: Sam Note: Please also refer to the separate dictated note~for this date of service dictated separately.~Patient seen individually. Discussed the patient with Nursing staff reviewed the chart.~Reviewed interim history and current functioning. Reviewed vital signs,~Labs/ Radiology~and current medications noted below. Continue current treatment with the changes noted in the dictated addendum note Assessment: Vital Signs/I&O: Vital Signs Date Time Temp Pulse Resp B/P (MAP) Pulse Ox O2 Delivery O2 Flow Rate FiO2 05/20/21 17:40 58 147/72 05/20/21 15:55 97.2 17 97 Room Air I & O 05/19/21 05/19/21 05/20/21 15:00 23:00 07:00 Intake Total 440 ml 60 ml 240 ml Balance 440 ml 60 ml 240 ml Labs: Laboratory Tests Test 05/20/21 06:46 White Blood Count 6.9 x10^3/uL (4.0-11.0) Red Blood Count 3.59 x10^6/uL (3.50-5.40) Hemoglobin 10.5 g/dL (12.0-15.5) L Hematocrit 32.6 % (36.0-47.0) L Mean Corpuscular Volume 91 fL (79-100) Mean Corpuscular Hemoglobin 29 pg (25-35) Mean Corpuscular Hemoglobin Concent 32 g/dL (31-37) Red Cell Distribution Width 15.5 % (11.5-14.5) H Platelet Count 298 x10^3/uL (140-400) Neutrophils (%) (Auto) 71 % (31-73) Lymphocytes (%) (Auto) 11 % (24-48) L Monocytes (%) (Auto) 14 % (0-9) H Eosinophils (%) (Auto) 3 % (0-3) Basophils (%) (Auto) 1 % (0-3) Neutrophils # (Auto) 4.9 x10^3uL (1.8-7.7) Lymphocytes # (Auto) 0.8 x10^3/uL (1.0-4.8) L Monocytes # (Auto) 0.9 x10^3/uL (0.0-1.1) Eosinophils # (Auto) 0.2 x10^3/uL (0.0-0.7) Basophils # (Auto) 0.1 x10^3/uL (0.0-0.2) Sodium Level 143 mmol/L (136-145) Potassium Level 4.4 mmol/L (3.5-5.1) Chloride Level 107 mmol/L (98-107) Carbon Dioxide Level 29 mmol/L (21-32) Anion Gap 7 (6-14) Blood Urea Nitrogen 20 mg/dL (7-20) Creatinine 1.0 mg/dL (0.6-1.0) Estimated GFR (Cockcroft-Gault) 53.9 BUN/Creatinine Ratio 20 (6-20) Glucose Level 107 mg/dL (70-99) H Calcium Level 8.9 mg/dL (8.5-10.1) Total Bilirubin 0.2 mg/dL (0.2-1.0) Aspartate Amino Transferase (AST) 79 U/L (15-37) H Alanine Aminotransferase (ALT) 74 U/L (14-59) H Alkaline Phosphatase 61 U/L (46-116) Total Protein 7.2 g/dL (6.4-8.2) Albumin 2.9 g/dL (3.4-5.0) L Albumin/Globulin Ratio 0.7 (1.0-1.7) L Valproic Acid Level 76 mcg/mL (50-100) Valproic Acid Last Dose Date 05/19/21 Valproic Acid Last Dose Time 2100 Current Medications: Meds: Laboratory Tests Test 05/20/21 06:46 White Blood Count 6.9 x10^3/uL Red Blood Count 3.59 x10^6/uL Hemoglobin 10.5 g/dL Hematocrit 32.6 % Mean Corpuscular Volume 91 fL Mean Corpuscular Hemoglobin 29 pg Mean Corpuscular Hemoglobin Concent 32 g/dL Red Cell Distribution Width 15.5 % Platelet Count 298 x10^3/uL Neutrophils (%) (Auto) 71 % Lymphocytes (%) (Auto) 11 % Monocytes (%) (Auto) 14 % Eosinophils (%) (Auto) 3 % Basophils (%) (Auto) 1 % Neutrophils # (Auto) 4.9 x10^3uL Lymphocytes # (Auto) 0.8 x10^3/uL Monocytes # (Auto) 0.9 x10^3/uL Eosinophils # (Auto) 0.2 x10^3/uL Basophils # (Auto) 0.1 x10^3/uL Sodium Level 143 mmol/L Potassium Level 4.4 mmol/L Chloride Level 107 mmol/L Carbon Dioxide Level 29 mmol/L Anion Gap 7 Blood Urea Nitrogen 20 mg/dL Creatinine 1.0 mg/dL Estimated GFR (Cockcroft-Gault) 53.9 BUN/Creatinine Ratio 20 Glucose Level 107 mg/dL Calcium Level 8.9 mg/dL Total Bilirubin 0.2 mg/dL Aspartate Amino Transf (AST/SGOT) 79 U/L Alanine Aminotransferase (ALT/SGPT) 74 U/L Alkaline Phosphatase 61 U/L Total Protein 7.2 g/dL Albumin 2.9 g/dL Albumin/Globulin Ratio 0.7 Valproic Acid (Depakene) Level 76 mcg/mL Valproic Acid Last Dose Date 05/19/21 Valproic Acid Last Dose Time 2100 Current Medications Medications (Trade) Dose Ordered Sig/Jordan Route PRN Reason Start Time Stop Time Status Last Admin Dose Admin Acetaminophen (Tylenol) 650 mg PRN Q4HRS PRN PO PAIN 05/11/21 13:15 05/16/21 13:53 Alprazolam (Xanax) 0.5 mg PRN Q4HRS PRN PO ANXIETY / AGITATION 05/11/21 13:15 05/17/21 09:41 DC 05/14/21 23:06 Alprazolam (Xanax) 0.5 mg QHS PO 05/11/21 21:00 05/12/21 13:43 DC 05/11/21 20:27 Ascorbic Acid (Vitamin C) 1,000 mg DAILY PO 05/12/21 09:00 05/20/21 09:07 Bupropion HCl (Wellbutrin Xl) 150 mg QODAY PO 05/12/21 09:00 05/16/21 09:01 DC 05/16/21 08:24 Clonidine HCl (Catapres) 0.1 mg BIDWMEALS PO 05/11/21 17:00 05/20/21 17:40 Divalproex Sodium (Depakote) 125 mg DAILY PO 05/12/21 09:00 05/12/21 13:43 DC 05/12/21 08:46 Divalproex Sodium (Depakote) 250 mg QHS PO 05/11/21 21:00 05/12/21 13:43 DC 05/11/21 20:29 Ferrous Sulfate (Feosol) 325 mg DAILY PO 05/12/21 09:00 05/20/21 09:07 Fluoxetine HCl (PROzac) 20 mg DAILY PO 05/12/21 09:00 05/20/21 09:07 Levothyroxine Sodium (Synthroid) 25 mcg DAILY06 PO 05/12/21 06:00 05/20/21 05:08 Metoprolol Tartrate (Lopressor) 25 mg BIDWMEALS PO 05/11/21 17:00 05/20/21 17:39 Olanzapine (ZyPREXA) 2.5 mg PRN BID PRN PO PSYCHOSIS 05/11/21 13:15 05/17/21 09:40 DC Olanzapine (ZyPREXA) 5 mg BID PO 05/11/21 21:00 05/12/21 13:43 DC 05/12/21 08:46 Docusate Sodium (Colace) 100 mg 1700 PO 05/11/21 17:00 05/20/21 17:39 Non-Formulary Medication (Ginkgo Biloba ) 120 mg BIDWMEALS PO 05/11/21 17:00 UNV Magnesium Oxide (Magnesium Oxide) 400 mg DAILY PO 05/12/21 09:00 05/20/21 09:07 Multivitamins/ Calcium (Thera-M Plus) 1 tab DAILY PO 05/12/21 09:00 05/20/21 09:07 Fish Oil (Fish Oil) 1,000 mg DAILY PO 05/12/21 09:00 05/20/21 09:07 Pantoprazole Sodium (Protonix) 40 mg DAILYAC PO 05/12/21 07:30 05/20/21 09:07 Atorvastatin Calcium (Lipitor) 80 mg DAILY PO 05/12/21 09:00 05/20/21 09:08 Multi-Ingredient Ointment (Analgesic [place]) 1 wendy PRN QID PRN TP MUSCLE PAIN 05/11/21 13:30 Al Hydroxide/Mg Hydroxide (Mylanta Plus Xs) 15 ml PRN AFTMEALHC PRN PO DYSPEPSIA 05/11/21 13:30 Magnesium Hydroxide (Milk Of Magnesia) 2,400 mg PRN QHS PRN PO CONSTIPATION 05/11/21 13:30 Influenza Virus Vaccine Quadrival (Flulaval Quad Syringe) 0.5 ml ONCE ONCE VAX IM 05/12/21 09:00 05/12/21 09:01 DC 05/12/21 08:49 Divalproex Sodium (Depakote) 375 mg QHS PO 05/12/21 21:00 05/17/21 16:53 DC 05/16/21 20:25 Divalproex Sodium (Depakote) 250 mg DAILY PO 05/13/21 09:00 05/20/21 09:07 Olanzapine (ZyPREXA) 7.5 mg BID PO 05/12/21 21:00 05/19/21 18:31 DC 05/19/21 11:11 Olanzapine (ZyPREXA) 2.5 mg PRN Q2HR PRN PO PSYCHOSIS 05/17/21 09:45 05/17/21 10:39 DC Lorazepam (Ativan) 1 mg PRN TID PRN PO ANXIETY / AGITATION 05/17/21 09:45 05/20/21 01:05 Olanzapine (ZyPREXA ZYDIS) 2.5 mg PRN Q2HRS PRN PO PSYCHOSIS 05/17/21 10:45 05/20/21 22:03 Divalproex Sodium (Depakote) 500 mg QHS PO 05/17/21 21:00 05/20/21 20:12 Mirtazapine (Remeron) 7.5 mg QHS PO 05/18/21 21:00 05/20/21 21:43 DC 05/20/21 20:13 Olanzapine (ZyPREXA) 2.5 mg BID PO 05/19/21 21:00 05/20/21 20:13 Risperidone (RisperDAL) 0.5 mg QHS PO 05/19/21 21:00 05/20/21 20:13 Mirtazapine (Remeron) 15 mg QHS PO 05/21/21 21:00 I have reviewed the current psychotropics carefully including drug interactions. Risk benefit ratio favors no change other than as noted in my dictated progress note. Diagnosis: Problems: (1) Major neurocognitive disorder (2) Anxiety disorder, unspecified (3) Major depressive disorder with psychotic features EDUARDO YBARRA MD May 20, 2021 22:10
[2021-05-21] MEDS: LEVOTHYROXINE 25 MCG TABLET. PO SCH (05:26)
[2021-05-21 06:15] VITALS: BP 150/63
[2021-05-21] MEDS: MULTIVITAMIN with MINERAL TABLET. PO SCH (08:54)
[2021-05-21] MEDS: MAGNESIUM OXIDE 400 MG TABLET PO SCH (08:54)
[2021-05-21] MEDS: FERROUS SULFATE 325 MG TABLET. PO SCH (08:55)
[2021-05-21] MEDS: PANTOPRAZOLE 40 MG TABLET. PO SCH (08:55)
[2021-05-21] MEDS: cloNIDine HCL 0.1 MG TABLET PO SCH ×2 (08:55→17:40)
[2021-05-21] MEDS: METOPROLOL TART IMMED RELEASE 25 MG TABLET. PO SCH ×2 (08:55→17:39)
[2021-05-21] MEDS: OMEGA-3 FATTY ACIDS/FISH OIL 1,000 MG CAPSULE. PO SCH (08:55)
[2021-05-21] MEDS: OLANZapine 2.5 MG TABLET PO SCH ×2 (08:55→20:13)
[2021-05-21] MEDS: ASCORBIC ACID 1,000 MG TABLET PO SCH (08:55)
[2021-05-21] MEDS: DIVALPROEX SODIUM 250 MG TABLET.DR. PO SCH (08:55)
--- NOTE | 2021-05-21 09:39 | PDOC ---
Exam Note: Sam Note: This note is a late entry for 05/19/2021 covers elements not covered in my initial note. Subjective: The patient was seen individually in the evening of 05/19/2021 with Aubrie PATINO, discussed and reviewed the chart. The patient slept 5-1/4 hours previous night. The patient is having active hallucinations. Previous night was disorganized. In the evening she was confused, believing people were getting killed. Review of Systems: No CV, , pulmonary, eye, ENT system symptoms on review. Reliability poor. Mental Status Exam: The patient is oriented to herself. Insight and judgment, recent and remote memory, attention and concentration, fund of knowledge is poor consistent with her diagnoses. Laboratory Data: Reviewed. AST is increased to 96 and ALT is 68. We will monitor this. UA is less than 10,000 microorganisms. 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 Anxiety disorder, unspecified. Impulse control disorder, unspecified. Plan: Reduce Zyprexa down to 2.5 mg b.i.d. Given her ongoing psychotic symptoms, we will start Risperdal 0.5 mg h.s. We will taper and stop the Zyprexa, later adjust the Risperdal. I left a very detailed message for Dr. Pascual the peer reviewer from [employer] as requested. Assessment: Vital Signs/I&O: Vital Signs Date Time Temp Pulse Resp B/P (MAP) Pulse Ox O2 Delivery O2 Flow Rate FiO2 05/21/21 08:55 61 150/63 05/21/21 06:15 97.1 16 100 05/20/21 15:55 Room Air I & O 05/20/21 05/20/21 05/21/21 15:00 23:00 07:00 Intake Total 120 ml 340 ml Balance 120 ml 340 ml Current Medications: Meds: Current Medications Medications (Trade) Dose Ordered Sig/Jordan Route PRN Reason Start Time Stop Time Status Last Admin Dose Admin Acetaminophen (Tylenol) 650 mg PRN Q4HRS PRN PO PAIN 05/11/21 13:15 05/16/21 13:53 Alprazolam (Xanax) 0.5 mg PRN Q4HRS PRN PO ANXIETY / AGITATION 05/11/21 13:15 05/17/21 09:41 DC 05/14/21 23:06 Alprazolam (Xanax) 0.5 mg QHS PO 05/11/21 21:00 05/12/21 13:43 DC 05/11/21 20:27 Ascorbic Acid (Vitamin C) 1,000 mg DAILY PO 05/12/21 09:00 05/21/21 08:55 Bupropion HCl (Wellbutrin Xl) 150 mg QODAY PO 05/12/21 09:00 05/16/21 09:01 DC 05/16/21 08:24 Clonidine HCl (Catapres) 0.1 mg BIDWMEALS PO 05/11/21 17:00 05/21/21 08:55 Divalproex Sodium (Depakote) 125 mg DAILY PO 05/12/21 09:00 05/12/21 13:43 DC 05/12/21 08:46 Divalproex Sodium (Depakote) 250 mg QHS PO 05/11/21 21:00 05/12/21 13:43 DC 05/11/21 20:29 Ferrous Sulfate (Feosol) 325 mg DAILY PO 05/12/21 09:00 05/21/21 08:55 Fluoxetine HCl (PROzac) 20 mg DAILY PO 05/12/21 09:00 05/21/21 08:55 Levothyroxine Sodium (Synthroid) 25 mcg DAILY06 PO 05/12/21 06:00 05/21/21 05:26 Metoprolol Tartrate (Lopressor) 25 mg BIDWMEALS PO 05/11/21 17:00 05/21/21 08:55 Olanzapine (ZyPREXA) 2.5 mg PRN BID PRN PO PSYCHOSIS 05/11/21 13:15 05/17/21 09:40 DC Olanzapine (ZyPREXA) 5 mg BID PO 05/11/21 21:00 05/12/21 13:43 DC 05/12/21 08:46 Docusate Sodium (Colace) 100 mg 1700 PO 05/11/21 17:00 05/20/21 17:39 Non-Formulary Medication (Ginkgo Biloba ) 120 mg BIDWMEALS PO 05/11/21 17:00 UNV Magnesium Oxide (Magnesium Oxide) 400 mg DAILY PO 05/12/21 09:00 05/21/21 08:54 Multivitamins/ Calcium (Thera-M Plus) 1 tab DAILY PO 05/12/21 09:00 05/21/21 08:54 Fish Oil (Fish Oil) 1,000 mg DAILY PO 05/12/21 09:00 05/21/21 08:55 Pantoprazole Sodium (Protonix) 40 mg DAILYAC PO 05/12/21 07:30 05/21/21 08:55 Atorvastatin Calcium (Lipitor) 80 mg DAILY PO 05/12/21 09:00 05/21/21 08:39 DC 05/20/21 09:08 Multi-Ingredient Ointment (Analgesic [place]) 1 wendy PRN QID PRN TP MUSCLE PAIN 05/11/21 13:30 Al Hydroxide/Mg Hydroxide (Mylanta Plus Xs) 15 ml PRN AFTMEALHC PRN PO DYSPEPSIA 05/11/21 13:30 Magnesium Hydroxide (Milk Of Magnesia) 2,400 mg PRN QHS PRN PO CONSTIPATION 05/11/21 13:30 Influenza Virus Vaccine Quadrival (Flulaval Quad [id number] Syringe) 0.5 ml ONCE ONCE VAX IM 05/12/21 09:00 05/12/21 09:01 DC 05/12/21 08:49 Divalproex Sodium (Depakote) 375 mg QHS PO 05/12/21 21:00 05/17/21 16:53 DC 05/16/21 20:25 Divalproex Sodium (Depakote) 250 mg DAILY PO 05/13/21 09:00 05/21/21 08:55 Olanzapine (ZyPREXA) 7.5 mg BID PO 05/12/21 21:00 05/19/21 18:31 DC 05/19/21 11:11 Olanzapine (ZyPREXA) 2.5 mg PRN Q2HR PRN PO PSYCHOSIS 05/17/21 09:45 05/17/21 10:39 DC Lorazepam (Ativan) 1 mg PRN TID PRN PO ANXIETY / AGITATION 05/17/21 09:45 05/20/21 23:31 Olanzapine (ZyPREXA ZYDIS) 2.5 mg PRN Q2HRS PRN PO PSYCHOSIS 05/17/21 10:45 05/20/21 22:03 Divalproex Sodium (Depakote) 500 mg QHS PO 05/17/21 21:00 05/20/21 20:12 Mirtazapine (Remeron) 7.5 mg QHS PO 05/18/21 21:00 05/20/21 21:43 DC 05/20/21 20:13 Olanzapine (ZyPREXA) 2.5 mg BID PO 05/19/21 21:00 05/21/21 08:55 Risperidone (RisperDAL) 0.5 mg QHS PO 05/19/21 21:00 05/20/21 20:13 Mirtazapine (Remeron) 15 mg QHS PO 05/21/21 21:00 Atorvastatin Calcium (Lipitor) 80 mg HS PO 05/21/21 21:00 I have reviewed the current psychotropics carefully including drug interactions. Risk benefit ratio favors no change other than as noted in my dictated progress note. Diagnosis: Problems: (1) Dementia, vascular, with delusions (2) Dementia, vascular, with depression (3) Vascular dementia with behavior disturbance (4) Hypoxic brain injury (5) Major neurocognitive disorder (6) Anxiety disorder, unspecified EDUARDO YBARRA MD May 21, 2021 09:39
[2021-05-21 15:50] VITALS: BP 132/54
[2021-05-21] MEDS: DOCUSATE SODIUM 100 MG CAPSULE PO SCH (17:00)
[2021-05-21] MEDS: LORazepam 1 MG TABLET PO PRN (20:13)
[2021-05-21] MEDS: ATORVASTATIN CALCIUM 20 MG TABLET PO SCH (20:14)
[2021-05-21] MEDS: MIRTAZAPINE 15 MG TABLET PO SCH (20:14)
[2021-05-21] MEDS: MELATONIN 3 MG TABLET PO SCH (20:15)
[2021-05-21] MEDS: DIVALPROEX 125 MG CAP.SPRINK PO SCH (20:15)
[2021-05-21] MEDS: risperiDONE 0.5 MG TABLET. PO SCH (20:15)
--- NOTE | 2021-05-21 22:06 | PDOC ---
Exam Note: Sam Note: Please also refer to the separate dictated note~for this date of service dictated separately.~Patient seen individually. Discussed the patient with Nursing staff reviewed the chart.~Reviewed interim history and current functioning. Reviewed vital signs,~Labs/ Radiology~and current medications noted below. Continue current treatment with the changes noted in the dictated addendum note Assessment: Vital Signs/I&O: Vital Signs Date Time Temp Pulse Resp B/P (MAP) Pulse Ox O2 Delivery O2 Flow Rate FiO2 05/21/21 17:40 81 132/54 05/21/21 15:50 98.1 18 94 Room Air I & O 05/20/21 05/20/21 05/21/21 15:00 23:00 07:00 Intake Total 120 ml 340 ml Balance 120 ml 340 ml Current Medications: Meds: Current Medications Medications (Trade) Dose Ordered Sig/Jordan Route PRN Reason Start Time Stop Time Status Last Admin Dose Admin Acetaminophen (Tylenol) 650 mg PRN Q4HRS PRN PO PAIN 05/11/21 13:15 05/16/21 13:53 Alprazolam (Xanax) 0.5 mg PRN Q4HRS PRN PO ANXIETY / AGITATION 05/11/21 13:15 05/17/21 09:41 DC 05/14/21 23:06 Alprazolam (Xanax) 0.5 mg QHS PO 05/11/21 21:00 05/12/21 13:43 DC 05/11/21 20:27 Ascorbic Acid (Vitamin C) 1,000 mg DAILY PO 05/12/21 09:00 05/21/21 08:55 Bupropion HCl (Wellbutrin Xl) 150 mg QODAY PO 05/12/21 09:00 05/16/21 09:01 DC 05/16/21 08:24 Clonidine HCl (Catapres) 0.1 mg BIDWMEALS PO 05/11/21 17:00 05/21/21 17:40 Divalproex Sodium (Depakote) 125 mg DAILY PO 05/12/21 09:00 05/12/21 13:43 DC 05/12/21 08:46 Divalproex Sodium (Depakote) 250 mg QHS PO 05/11/21 21:00 05/12/21 13:43 DC 05/11/21 20:29 Ferrous Sulfate (Feosol) 325 mg DAILY PO 05/12/21 09:00 05/21/21 08:55 Fluoxetine HCl (PROzac) 20 mg DAILY PO 05/12/21 09:00 05/21/21 08:55 Levothyroxine Sodium (Synthroid) 25 mcg DAILY06 PO 05/12/21 06:00 05/21/21 05:26 Metoprolol Tartrate (Lopressor) 25 mg BIDWMEALS PO 05/11/21 17:00 05/21/21 17:39 Olanzapine (ZyPREXA) 2.5 mg PRN BID PRN PO PSYCHOSIS 05/11/21 13:15 05/17/21 09:40 DC Olanzapine (ZyPREXA) 5 mg BID PO 05/11/21 21:00 05/12/21 13:43 DC 05/12/21 08:46 Docusate Sodium (Colace) 100 mg 1700 PO 05/11/21 17:00 05/20/21 17:39 Non-Formulary Medication (Ginkgo Biloba ) 120 mg BIDWMEALS PO 05/11/21 17:00 UNV Magnesium Oxide (Magnesium Oxide) 400 mg DAILY PO 05/12/21 09:00 05/21/21 08:54 Multivitamins/ Calcium (Thera-M Plus) 1 tab DAILY PO 05/12/21 09:00 05/21/21 08:54 Fish Oil (Fish Oil) 1,000 mg DAILY PO 05/12/21 09:00 05/21/21 08:55 Pantoprazole Sodium (Protonix) 40 mg DAILYAC PO 05/12/21 07:30 05/21/21 08:55 Atorvastatin Calcium (Lipitor) 80 mg DAILY PO 05/12/21 09:00 05/21/21 08:39 DC 05/20/21 09:08 Multi-Ingredient Ointment (Analgesic [place]) 1 wendy PRN QID PRN TP MUSCLE PAIN 05/11/21 13:30 Al Hydroxide/Mg Hydroxide (Mylanta Plus Xs) 15 ml PRN AFTMEALHC PRN PO DYSPEPSIA 05/11/21 13:30 Magnesium Hydroxide (Milk Of Magnesia) 2,400 mg PRN QHS PRN PO CONSTIPATION 05/11/21 13:30 Influenza Virus Vaccine Quadrival (Flulaval Quad Syringe) 0.5 ml ONCE ONCE VAX IM 05/12/21 09:00 05/12/21 09:01 DC 05/12/21 08:49 Divalproex Sodium (Depakote) 375 mg QHS PO 05/12/21 21:00 05/17/21 16:53 DC 05/16/21 20:25 Divalproex Sodium (Depakote) 250 mg DAILY PO 05/13/21 09:00 05/21/21 20:06 DC 05/21/21 08:55 Olanzapine (ZyPREXA) 7.5 mg BID PO 05/12/21 21:00 05/19/21 18:31 DC 05/19/21 11:11 Olanzapine (ZyPREXA) 2.5 mg PRN Q2HR PRN PO PSYCHOSIS 05/17/21 09:45 05/17/21 10:39 DC Lorazepam (Ativan) 1 mg PRN TID PRN PO ANXIETY / AGITATION 05/17/21 09:45 05/21/21 20:13 Olanzapine (ZyPREXA ZYDIS) 2.5 mg PRN Q2HRS PRN PO PSYCHOSIS 05/17/21 10:45 05/20/21 22:03 Divalproex Sodium (Depakote) 500 mg QHS PO 05/17/21 21:00 05/21/21 20:06 DC 05/20/21 20:12 Mirtazapine (Remeron) 7.5 mg QHS PO 05/18/21 21:00 05/20/21 21:43 DC 05/20/21 20:13 Olanzapine (ZyPREXA) 2.5 mg BID PO 05/19/21 21:00 05/21/21 20:13 Risperidone (RisperDAL) 0.5 mg QHS PO 05/19/21 21:00 05/21/21 20:15 Mirtazapine (Remeron) 15 mg QHS PO 05/21/21 21:00 05/21/21 20:14 Atorvastatin Calcium (Lipitor) 80 mg HS PO 05/21/21 21:00 05/21/21 20:14 Melatonin (Melatonin) 3 mg QHS PO 05/21/21 21:00 05/21/21 20:15 Divalproex Sodium (Depakote Sprinkles) 250 mg DAILY PO 05/22/21 09:00 Divalproex Sodium (Depakote Sprinkles) 500 mg QHS PO 05/21/21 21:00 05/21/21 20:15 Current Medications Medications (Trade) Dose Ordered Sig/Jordan Route PRN Reason Start Time Stop Time Status Last Admin Dose Admin Mirtazapine (Remeron) 15 mg QHS PO 05/21/21 21:00 05/21/21 20:14 Atorvastatin Calcium (Lipitor) 80 mg HS PO 05/21/21 21:00 05/21/21 20:14 Melatonin (Melatonin) 3 mg QHS PO 05/21/21 21:00 05/21/21 20:15 Divalproex Sodium (Depakote Sprinkles) 500 mg QHS PO 05/21/21 21:00 05/21/21 20:15 I have reviewed the current psychotropics carefully including drug interactions. Risk benefit ratio favors no change other than as noted in my dictated progress note. Diagnosis: Problems: (1) Major neurocognitive disorder (2) Anxiety disorder, unspecified (3) Major depressive disorder with psychotic features (4) Hypoxic brain injury (5) Dementia, vascular, with depression (6) Dementia, vascular, with delusions (7) Vascular dementia with behavior disturbance EDUARDO YBARRA MD May 21, 2021 22:06
[2021-05-22] MEDS: LEVOTHYROXINE 25 MCG TABLET. PO SCH ×2 (04:54→11:10)
[2021-05-22 05:36] VITALS: BP 159/81
--- NOTE | 2021-05-22 09:20 | PDOC ---
Exam Note: Sam Note: This note is a late entry for 05/20/2021 covers elements not covered in my initial note. Subjective: The patient was seen individually in the evening of 05/20/2021 with Noy PATINO, discussed and reviewed the chart. The patient slept 2-1/4 hours previous night. Her sleep has been very recalcitrant to treatment. We will increase Remeron from 7.5 mg h.s. to 15 mg h.s. She has been hallucinating, seeing kids talking to someone when no one is there. She guessed the year correctly. AST is improved. ALT is slightly elevated. We will repeat in 2 days. Valproic acid level is 76. We will repeat liver enzymes on Saturday. Review of Systems: No CV, , pulmonary, eye, ENT system symptoms on review. Reliability poor. Mental Status Exam: The patient is oriented to herself. Insight and judgment, recent and remote memory, attention and concentration, fund of knowledge is poor consistent with her diagnoses. Laboratory Data: Reviewed. Impression: Major neurocognitive disorder Alzheimer, vascular with delusion, depression, behavioral disturbance. Anxiety disorder, unspecified. Impulse control disorder, unspecified. Plan: No change from initial note. Assessment: Vital Signs/I&O: Vital Signs Date Time Temp Pulse Resp B/P (MAP) Pulse Ox O2 Delivery O2 Flow Rate FiO2 05/22/21 05:36 97.1 52 16 159/81 (107) 96 05/21/21 15:50 Room Air I & O 05/21/21 05/21/21 05/22/21 15:00 23:00 07:00 Intake Total 360 ml 340 ml Balance 360 ml 340 ml Current Medications: Meds: Current Medications Medications (Trade) Dose Ordered Sig/Jordan Route PRN Reason Start Time Stop Time Status Last Admin Dose Admin Acetaminophen (Tylenol) 650 mg PRN Q4HRS PRN PO PAIN 05/11/21 13:15 05/16/21 13:53 Alprazolam (Xanax) 0.5 mg PRN Q4HRS PRN PO ANXIETY / AGITATION 05/11/21 13:15 05/17/21 09:41 DC 05/14/21 23:06 Alprazolam (Xanax) 0.5 mg QHS PO 05/11/21 21:00 05/12/21 13:43 DC 05/11/21 20:27 Ascorbic Acid (Vitamin C) 1,000 mg DAILY PO 05/12/21 09:00 05/21/21 08:55 Bupropion HCl (Wellbutrin Xl) 150 mg QODAY PO 05/12/21 09:00 05/16/21 09:01 DC 05/16/21 08:24 Clonidine HCl (Catapres) 0.1 mg BIDWMEALS PO 05/11/21 17:00 05/21/21 17:40 Divalproex Sodium (Depakote) 125 mg DAILY PO 05/12/21 09:00 05/12/21 13:43 DC 05/12/21 08:46 Divalproex Sodium (Depakote) 250 mg QHS PO 05/11/21 21:00 05/12/21 13:43 DC 05/11/21 20:29 Ferrous Sulfate (Feosol) 325 mg DAILY PO 05/12/21 09:00 05/21/21 08:55 Fluoxetine HCl (PROzac) 20 mg DAILY PO 05/12/21 09:00 05/21/21 08:55 Levothyroxine Sodium (Synthroid) 25 mcg DAILY06 PO 05/12/21 06:00 05/21/21 05:26 Metoprolol Tartrate (Lopressor) 25 mg BIDWMEALS PO 05/11/21 17:00 05/21/21 17:39 Olanzapine (ZyPREXA) 2.5 mg PRN BID PRN PO PSYCHOSIS 05/11/21 13:15 05/17/21 09:40 DC Olanzapine (ZyPREXA) 5 mg BID PO 05/11/21 21:00 05/12/21 13:43 DC 05/12/21 08:46 Docusate Sodium (Colace) 100 mg 1700 PO 05/11/21 17:00 05/20/21 17:39 Non-Formulary Medication (Ginkgo Biloba ) 120 mg BIDWMEALS PO 05/11/21 17:00 UNV Magnesium Oxide (Magnesium Oxide) 400 mg DAILY PO 05/12/21 09:00 05/21/21 08:54 Multivitamins/ Calcium (Thera-M Plus) 1 tab DAILY PO 05/12/21 09:00 05/21/21 08:54 Fish Oil (Fish Oil) 1,000 mg DAILY PO 05/12/21 09:00 05/21/21 08:55 Pantoprazole Sodium (Protonix) 40 mg DAILYAC PO 05/12/21 07:30 05/21/21 08:55 Atorvastatin Calcium (Lipitor) 80 mg DAILY PO 05/12/21 09:00 05/21/21 08:39 DC 05/20/21 09:08 Multi-Ingredient Ointment (Analgesic [place]) 1 wendy PRN QID PRN TP MUSCLE PAIN 05/11/21 13:30 Al Hydroxide/Mg Hydroxide (Mylanta Plus Xs) 15 ml PRN AFTMEALHC PRN PO DYSPEPSIA 05/11/21 13:30 Magnesium Hydroxide (Milk Of Magnesia) 2,400 mg PRN QHS PRN PO CONSTIPATION 05/11/21 13:30 Influenza Virus Vaccine Quadrival (Flulaval Quad [id number] Syringe) 0.5 ml ONCE ONCE VAX IM 05/12/21 09:00 05/12/21 09:01 DC 05/12/21 08:49 Divalproex Sodium (Depakote) 375 mg QHS PO 05/12/21 21:00 05/17/21 16:53 DC 05/16/21 20:25 Divalproex Sodium (Depakote) 250 mg DAILY PO 05/13/21 09:00 05/21/21 20:06 DC 05/21/21 08:55 Olanzapine (ZyPREXA) 7.5 mg BID PO 05/12/21 21:00 05/19/21 18:31 DC 05/19/21 11:11 Olanzapine (ZyPREXA) 2.5 mg PRN Q2HR PRN PO PSYCHOSIS 05/17/21 09:45 05/17/21 10:39 DC Lorazepam (Ativan) 1 mg PRN TID PRN PO ANXIETY / AGITATION 05/17/21 09:45 05/21/21 20:13 Olanzapine (ZyPREXA ZYDIS) 2.5 mg PRN Q2HRS PRN PO PSYCHOSIS 05/17/21 10:45 05/20/21 22:03 Divalproex Sodium (Depakote) 500 mg QHS PO 05/17/21 21:00 05/21/21 20:06 DC 05/20/21 20:12 Mirtazapine (Remeron) 7.5 mg QHS PO 05/18/21 21:00 05/20/21 21:43 DC 05/20/21 20:13 Olanzapine (ZyPREXA) 2.5 mg BID PO 05/19/21 21:00 05/21/21 20:13 Risperidone (RisperDAL) 0.5 mg QHS PO 05/19/21 21:00 05/21/21 20:15 Mirtazapine (Remeron) 15 mg QHS PO 05/21/21 21:00 05/21/21 20:14 Atorvastatin Calcium (Lipitor) 80 mg HS PO 05/21/21 21:00 05/21/21 20:14 Melatonin (Melatonin) 3 mg QHS PO 05/21/21 21:00 05/21/21 20:15 Divalproex Sodium (Depakote Sprinkles) 250 mg DAILY PO 05/22/21 09:00 Divalproex Sodium (Depakote Sprinkles) 500 mg QHS PO 05/21/21 21:00 05/21/21 20:15 Current Medications Medications (Trade) Dose Ordered Sig/Jordan Route PRN Reason Start Time Stop Time Status Last Admin Dose Admin Mirtazapine (Remeron) 15 mg QHS PO 05/21/21 21:00 05/21/21 20:14 Atorvastatin Calcium (Lipitor) 80 mg HS PO 05/21/21 21:00 05/21/21 20:14 Melatonin (Melatonin) 3 mg QHS PO 05/21/21 21:00 05/21/21 20:15 Divalproex Sodium (Depakote Sprinkles) 500 mg QHS PO 05/21/21 21:00 05/21/21 20:15 I have reviewed the current psychotropics carefully including drug interactions. Risk benefit ratio favors no change other than as noted in my dictated progress note. Diagnosis: Problems: (1) Major neurocognitive disorder (2) Anxiety disorder, unspecified (3) Major depressive disorder with psychotic features (4) Hypoxic brain injury (5) Dementia, vascular, with depression (6) Dementia, vascular, with delusions (7) Vascular dementia with behavior disturbance EDUARDO YBARRA MD May 22, 2021 09:20
[2021-05-22] MEDS: PANTOPRAZOLE 40 MG TABLET. PO SCH (11:08)
[2021-05-22] MEDS: cloNIDine HCL 0.1 MG TABLET PO SCH ×2 (11:09→17:07)
[2021-05-22] MEDS: METOPROLOL TART IMMED RELEASE 25 MG TABLET. PO SCH ×2 (11:09→17:00)
[2021-05-22] MEDS: DIVALPROEX 125 MG CAP.SPRINK PO SCH ×2 (11:10→19:46)
[2021-05-22] MEDS: OMEGA-3 FATTY ACIDS/FISH OIL 1,000 MG CAPSULE. PO SCH (11:10)
[2021-05-22] MEDS: OLANZapine 2.5 MG TABLET PO SCH ×2 (11:10→19:46)
[2021-05-22] MEDS: ASCORBIC ACID 1,000 MG TABLET PO SCH (11:10)
[2021-05-22] MEDS: FERROUS SULFATE 325 MG TABLET. PO SCH (11:10)
[2021-05-22] MEDS: MULTIVITAMIN with MINERAL TABLET. PO SCH (11:10)
[2021-05-22] MEDS: MAGNESIUM OXIDE 400 MG TABLET PO SCH (11:10)
[2021-05-22 15:45] VITALS: BP 96/62
[2021-05-22] MEDS: DOCUSATE SODIUM 100 MG CAPSULE PO SCH (16:57)
[2021-05-22] MEDS: LORazepam 1 MG TABLET PO PRN (16:57)
[2021-05-22] MEDS: MELATONIN 3 MG TABLET PO SCH (19:46)
[2021-05-22] MEDS: ATORVASTATIN CALCIUM 20 MG TABLET PO SCH (19:46)
[2021-05-22] MEDS: MIRTAZAPINE 15 MG TABLET PO SCH (19:46)
[2021-05-22] MEDS: risperiDONE 0.5 MG TABLET. PO SCH (19:46)
--- NOTE | 2021-05-22 21:54 | PDOC ---
Exam Note: Sam Note: Please also refer to the separate dictated note~for this date of service dictated separately.~Patient seen individually. Discussed the patient with Nursing staff reviewed the chart.~Reviewed interim history and current functioning. Reviewed vital signs,~Labs/ Radiology~and current medications noted below. Continue current treatment with the changes noted in the dictated addendum note Assessment: Vital Signs/I&O: Vital Signs Date Time Temp Pulse Resp B/P (MAP) Pulse Ox O2 Delivery O2 Flow Rate FiO2 05/22/21 17:07 76 113/61 05/22/21 15:45 97.5 16 96 Room Air I & O 05/21/21 05/21/21 05/22/21 15:00 23:00 07:00 Intake Total 360 ml 340 ml Balance 360 ml 340 ml Current Medications: Meds: Current Medications Medications (Trade) Dose Ordered Sig/Jordan Route PRN Reason Start Time Stop Time Status Last Admin Dose Admin Acetaminophen (Tylenol) 650 mg PRN Q4HRS PRN PO PAIN 05/11/21 13:15 05/16/21 13:53 Alprazolam (Xanax) 0.5 mg PRN Q4HRS PRN PO ANXIETY / AGITATION 05/11/21 13:15 05/17/21 09:41 DC 05/14/21 23:06 Alprazolam (Xanax) 0.5 mg QHS PO 05/11/21 21:00 05/12/21 13:43 DC 05/11/21 20:27 Ascorbic Acid (Vitamin C) 1,000 mg DAILY PO 05/12/21 09:00 05/22/21 11:10 Bupropion HCl (Wellbutrin Xl) 150 mg QODAY PO 05/12/21 09:00 05/16/21 09:01 DC 05/16/21 08:24 Clonidine HCl (Catapres) 0.1 mg BIDWMEALS PO 05/11/21 17:00 05/22/21 17:07 Divalproex Sodium (Depakote) 125 mg DAILY PO 05/12/21 09:00 05/12/21 13:43 DC 05/12/21 08:46 Divalproex Sodium (Depakote) 250 mg QHS PO 05/11/21 21:00 05/12/21 13:43 DC 05/11/21 20:29 Ferrous Sulfate (Feosol) 325 mg DAILY PO 05/12/21 09:00 05/22/21 11:10 Fluoxetine HCl (PROzac) 20 mg DAILY PO 05/12/21 09:00 05/22/21 11:08 Levothyroxine Sodium (Synthroid) 25 mcg DAILY06 PO 05/12/21 06:00 05/22/21 11:10 Metoprolol Tartrate (Lopressor) 25 mg BIDWMEALS PO 05/11/21 17:00 05/22/21 11:09 Olanzapine (ZyPREXA) 2.5 mg PRN BID PRN PO PSYCHOSIS 05/11/21 13:15 05/17/21 09:40 DC Olanzapine (ZyPREXA) 5 mg BID PO 05/11/21 21:00 05/12/21 13:43 DC 05/12/21 08:46 Docusate Sodium (Colace) 100 mg 1700 PO 05/11/21 17:00 05/22/21 16:57 Non-Formulary Medication (Ginkgo Biloba ) 120 mg BIDWMEALS PO 05/11/21 17:00 UNV Magnesium Oxide (Magnesium Oxide) 400 mg DAILY PO 05/12/21 09:00 05/22/21 11:10 Multivitamins/ Calcium (Thera-M Plus) 1 tab DAILY PO 05/12/21 09:00 05/22/21 11:10 Fish Oil (Fish Oil) 1,000 mg DAILY PO 05/12/21 09:00 05/22/21 11:10 Pantoprazole Sodium (Protonix) 40 mg DAILYAC PO 05/12/21 07:30 05/22/21 11:08 Atorvastatin Calcium (Lipitor) 80 mg DAILY PO 05/12/21 09:00 05/21/21 08:39 DC 05/20/21 09:08 Multi-Ingredient Ointment (Analgesic [place]) 1 wendy PRN QID PRN TP MUSCLE PAIN 05/11/21 13:30 Al Hydroxide/Mg Hydroxide (Mylanta Plus Xs) 15 ml PRN AFTMEALHC PRN PO DYSPEPSIA 05/11/21 13:30 Magnesium Hydroxide (Milk Of Magnesia) 2,400 mg PRN QHS PRN PO CONSTIPATION 05/11/21 13:30 Influenza Virus Vaccine Quadrival (Flulaval Quad Syringe) 0.5 ml ONCE ONCE VAX IM 05/12/21 09:00 05/12/21 09:01 DC 05/12/21 08:49 Divalproex Sodium (Depakote) 375 mg QHS PO 05/12/21 21:00 05/17/21 16:53 DC 05/16/21 20:25 Divalproex Sodium (Depakote) 250 mg DAILY PO 05/13/21 09:00 05/21/21 20:06 DC 05/21/21 08:55 Olanzapine (ZyPREXA) 7.5 mg BID PO 05/12/21 21:00 05/19/21 18:31 DC 05/19/21 11:11 Olanzapine (ZyPREXA) 2.5 mg PRN Q2HR PRN PO PSYCHOSIS 05/17/21 09:45 05/17/21 10:39 DC Lorazepam (Ativan) 1 mg PRN TID PRN PO ANXIETY / AGITATION 05/17/21 09:45 05/22/21 16:57 Olanzapine (ZyPREXA ZYDIS) 2.5 mg PRN Q2HRS PRN PO PSYCHOSIS 05/17/21 10:45 05/20/21 22:03 Divalproex Sodium (Depakote) 500 mg QHS PO 05/17/21 21:00 05/21/21 20:06 DC 05/20/21 20:12 Mirtazapine (Remeron) 7.5 mg QHS PO 05/18/21 21:00 05/20/21 21:43 DC 05/20/21 20:13 Olanzapine (ZyPREXA) 2.5 mg BID PO 05/19/21 21:00 05/22/21 20:16 DC 05/22/21 19:46 Risperidone (RisperDAL) 0.5 mg QHS PO 05/19/21 21:00 05/22/21 19:46 Mirtazapine (Remeron) 15 mg QHS PO 05/21/21 21:00 05/22/21 19:46 Atorvastatin Calcium (Lipitor) 80 mg HS PO 05/21/21 21:00 05/22/21 19:46 Melatonin (Melatonin) 3 mg QHS PO 05/21/21 21:00 05/22/21 19:46 Divalproex Sodium (Depakote Sprinkles) 250 mg DAILY PO 05/22/21 09:00 05/22/21 11:10 Divalproex Sodium (Depakote Sprinkles) 500 mg QHS PO 05/21/21 21:00 05/22/21 19:46 Olanzapine (ZyPREXA) 2.5 mg DAILY PO 05/23/21 09:00 Current Medications Medications (Trade) Dose Ordered Sig/Jordan Route PRN Reason Start Time Stop Time Status Last Admin Dose Admin Divalproex Sodium (Depakote Sprinkles) 250 mg DAILY PO 05/22/21 09:00 05/22/21 11:10 I have reviewed the current psychotropics carefully including drug interactions. Risk benefit ratio favors no change other than as noted in my dictated progress note. Diagnosis: Problems: (1) Major neurocognitive disorder (2) Anxiety disorder, unspecified (3) Major depressive disorder with psychotic features (4) Hypoxic brain injury (5) Dementia, vascular, with depression (6) Dementia, vascular, with delusions (7) Vascular dementia with behavior disturbance EDUARDO YBARRA MD May 22, 2021 21:54
[2021-05-23] MEDS: LEVOTHYROXINE 25 MCG TABLET. PO SCH (05:29)
[2021-05-23 06:30] VITALS: BP 143/63
[2021-05-23] MEDS: OMEGA-3 FATTY ACIDS/FISH OIL 1,000 MG CAPSULE. PO SCH (08:21)
[2021-05-23] MEDS: MULTIVITAMIN with MINERAL TABLET. PO SCH (08:21)
[2021-05-23] MEDS: cloNIDine HCL 0.1 MG TABLET PO SCH ×3 (08:22→17:11)
[2021-05-23] MEDS: PANTOPRAZOLE 40 MG TABLET. PO SCH (08:22)
[2021-05-23] MEDS: METOPROLOL TART IMMED RELEASE 25 MG TABLET. PO SCH ×2 (08:22→17:00)
[2021-05-23] MEDS: MAGNESIUM OXIDE 400 MG TABLET PO SCH (08:23)
[2021-05-23] MEDS: ASCORBIC ACID 1,000 MG TABLET PO SCH (08:23)
[2021-05-23] MEDS: FERROUS SULFATE 325 MG TABLET. PO SCH (08:24)
[2021-05-23] MEDS: DIVALPROEX 125 MG CAP.SPRINK PO SCH ×2 (08:24→19:58)
[2021-05-23] MEDS ORDERED: OLANZapine 2.5 MG TABLET PO SCH (09:00)
--- NOTE | 2021-05-23 09:44 | PDOC ---
Exam Note: Sam Note: This note is a late entry for 05/21/2021 covers elements not covered in my initial note. Subjective: The patient was seen individually in the evening of 05/21/2021 with Noy PATINO, discussed and reviewed the chart. The patient slept 0 hours previous night. She has difficulty swallowing. We will change the Depakote DR to Sprinkle and add melatonin 3 mg h.s. We may repeat x1 for insomnia. Patient remains confused, anxious. Review of Systems: No CV, , pulmonary, eye, ENT system symptoms on review. Reliability poor. Mental Status Exam: The patient is oriented to herself. Insight and judgment, recent and remote memory, attention and concentration, fund of knowledge is poor consistent with her diagnoses. Laboratory Data: Reviewed. Impression: Major neurocognitive disorder Alzheimer, vascular with delusion, depression, behavioral disturbance. Anxiety disorder, unspecified. Impulse control disorder, unspecified. Plan: No change from initial note. Assessment: Vital Signs/I&O: Vital Signs Date Time Temp Pulse Resp B/P (MAP) Pulse Ox O2 Delivery O2 Flow Rate FiO2 05/23/21 08:22 63 143/63 05/23/21 06:30 97.5 16 92 05/22/21 15:45 Room Air I & O 05/22/21 05/22/21 05/23/21 15:00 23:00 07:00 Intake Total 360 ml 460 ml Balance 360 ml 460 ml Current Medications: Meds: Current Medications Medications (Trade) Dose Ordered Sig/Jordan Route PRN Reason Start Time Stop Time Status Last Admin Dose Admin Acetaminophen (Tylenol) 650 mg PRN Q4HRS PRN PO PAIN 05/11/21 13:15 05/16/21 13:53 Alprazolam (Xanax) 0.5 mg PRN Q4HRS PRN PO ANXIETY / AGITATION 05/11/21 13:15 05/17/21 09:41 DC 05/14/21 23:06 Alprazolam (Xanax) 0.5 mg QHS PO 05/11/21 21:00 05/12/21 13:43 DC 05/11/21 20:27 Ascorbic Acid (Vitamin C) 1,000 mg DAILY PO 05/12/21 09:00 05/23/21 08:23 Bupropion HCl (Wellbutrin Xl) 150 mg QODAY PO 05/12/21 09:00 05/16/21 09:01 DC 05/16/21 08:24 Clonidine HCl (Catapres) 0.1 mg BIDWMEALS PO 05/11/21 17:00 05/23/21 08:22 Divalproex Sodium (Depakote) 125 mg DAILY PO 05/12/21 09:00 05/12/21 13:43 DC 05/12/21 08:46 Divalproex Sodium (Depakote) 250 mg QHS PO 05/11/21 21:00 05/12/21 13:43 DC 05/11/21 20:29 Ferrous Sulfate (Feosol) 325 mg DAILY PO 05/12/21 09:00 05/23/21 08:24 Fluoxetine HCl (PROzac) 20 mg DAILY PO 05/12/21 09:00 05/23/21 08:21 Levothyroxine Sodium (Synthroid) 25 mcg DAILY06 PO 05/12/21 06:00 05/23/21 05:29 Metoprolol Tartrate (Lopressor) 25 mg BIDWMEALS PO 05/11/21 17:00 05/23/21 08:22 Olanzapine (ZyPREXA) 2.5 mg PRN BID PRN PO PSYCHOSIS 05/11/21 13:15 05/17/21 09:40 DC Olanzapine (ZyPREXA) 5 mg BID PO 05/11/21 21:00 05/12/21 13:43 DC 05/12/21 08:46 Docusate Sodium (Colace) 100 mg 1700 PO 05/11/21 17:00 05/22/21 16:57 Non-Formulary Medication (Ginkgo Biloba ) 120 mg BIDWMEALS PO 05/11/21 17:00 UNV Magnesium Oxide (Magnesium Oxide) 400 mg DAILY PO 05/12/21 09:00 05/23/21 08:23 Multivitamins/ Calcium (Thera-M Plus) 1 tab DAILY PO 05/12/21 09:00 05/23/21 08:21 Fish Oil (Fish Oil) 1,000 mg DAILY PO 05/12/21 09:00 05/23/21 08:21 Pantoprazole Sodium (Protonix) 40 mg DAILYAC PO 05/12/21 07:30 05/23/21 08:22 Atorvastatin Calcium (Lipitor) 80 mg DAILY PO 05/12/21 09:00 05/21/21 08:39 DC 05/20/21 09:08 Multi-Ingredient Ointment (Analgesic [place]) 1 wendy PRN QID PRN TP MUSCLE PAIN 05/11/21 13:30 Al Hydroxide/Mg Hydroxide (Mylanta Plus Xs) 15 ml PRN AFTMEALHC PRN PO DYSPEPSIA 05/11/21 13:30 Magnesium Hydroxide (Milk Of Magnesia) 2,400 mg PRN QHS PRN PO CONSTIPATION 05/11/21 13:30 Influenza Virus Vaccine Quadrival (Flulaval Quad [id number] Syringe) 0.5 ml ONCE ONCE VAX IM 05/12/21 09:00 05/12/21 09:01 DC 05/12/21 08:49 Divalproex Sodium (Depakote) 375 mg QHS PO 05/12/21 21:00 05/17/21 16:53 DC 05/16/21 20:25 Divalproex Sodium (Depakote) 250 mg DAILY PO 05/13/21 09:00 05/21/21 20:06 DC 05/21/21 08:55 Olanzapine (ZyPREXA) 7.5 mg BID PO 05/12/21 21:00 05/19/21 18:31 DC 05/19/21 11:11 Olanzapine (ZyPREXA) 2.5 mg PRN Q2HR PRN PO PSYCHOSIS 05/17/21 09:45 05/17/21 10:39 DC Lorazepam (Ativan) 1 mg PRN TID PRN PO ANXIETY / AGITATION 05/17/21 09:45 05/22/21 16:57 Olanzapine (ZyPREXA ZYDIS) 2.5 mg PRN Q2HRS PRN PO PSYCHOSIS 05/17/21 10:45 05/20/21 22:03 Divalproex Sodium (Depakote) 500 mg QHS PO 05/17/21 21:00 05/21/21 20:06 DC 05/20/21 20:12 Mirtazapine (Remeron) 7.5 mg QHS PO 05/18/21 21:00 05/20/21 21:43 DC 05/20/21 20:13 Olanzapine (ZyPREXA) 2.5 mg BID PO 05/19/21 21:00 05/22/21 20:16 DC 05/22/21 19:46 Risperidone (RisperDAL) 0.5 mg QHS PO 05/19/21 21:00 05/22/21 19:46 Mirtazapine (Remeron) 15 mg QHS PO 05/21/21 21:00 05/22/21 19:46 Atorvastatin Calcium (Lipitor) 80 mg HS PO 05/21/21 21:00 05/22/21 19:46 Melatonin (Melatonin) 3 mg QHS PO 05/21/21 21:00 05/22/21 19:46 Divalproex Sodium (Depakote Sprinkles) 250 mg DAILY PO 05/22/21 09:00 05/23/21 08:24 Divalproex Sodium (Depakote Sprinkles) 500 mg QHS PO 05/21/21 21:00 05/22/21 19:46 Olanzapine (ZyPREXA) 2.5 mg DAILY PO 05/23/21 09:00 05/23/21 08:23 Current Medications Medications (Trade) Dose Ordered Sig/Jordan Route PRN Reason Start Time Stop Time Status Last Admin Dose Admin Olanzapine (ZyPREXA) 2.5 mg DAILY PO 05/23/21 09:00 05/23/21 08:23 I have reviewed the current psychotropics carefully including drug interactions. Risk benefit ratio favors no change other than as noted in my dictated progress note. Diagnosis: Problems: (1) Major neurocognitive disorder (2) Anxiety disorder, unspecified (3) Major depressive disorder with psychotic features (4) Hypoxic brain injury (5) Dementia, vascular, with depression (6) Dementia, vascular, with delusions (7) Vascular dementia with behavior disturbance EDUARDO YBARRA MD May 23, 2021 09:44
--- NOTE | 2021-05-23 10:04 | PDOC ---
Exam Note: Sam Note: This note is a late entry for 05/22/2021 covers elements not covered in my initial note. Subjective: The patient was seen individually in the evening of 05/22/2021 with Lynnette PATINO, discussed and reviewed the chart. The patient slept 9-1/2 hours previous night. She remains confused, exit seeking, wandering, at 5.30 p.m. received Ativan for agitation. Review of Systems: No CV, , pulmonary, eye, ENT system symptoms on review. Reliability poor. She continues to have some intermittent hallucinations. Mental Status Exam: The patient is oriented to herself. Insight and judgment, recent and remote memory, attention and concentration, fund of knowledge is poor consistent with her diagnoses. Laboratory Data: Reviewed. Impression: Major neurocognitive disorder Alzheimer, vascular with delusion, depression, behavioral disturbance. Anxiety disorder, unspecified. Impulse control disorder, unspecified. Plan: Continue current psychotropics. Stop the 9 p.m. Zyprexa. Maintain 2.5 mg a.m., Risperdal 0.5 mg h.s. we may need to increase tomorrow. Maintain rest unchanged. Assessment: Vital Signs/I&O: Vital Signs Date Time Temp Pulse Resp B/P (MAP) Pulse Ox O2 Delivery O2 Flow Rate FiO2 05/23/21 08:22 63 143/63 05/23/21 06:30 97.5 16 92 05/22/21 15:45 Room Air I & O 05/22/21 05/22/21 05/23/21 15:00 23:00 07:00 Intake Total 360 ml 460 ml Balance 360 ml 460 ml Current Medications: Meds: Current Medications Medications (Trade) Dose Ordered Sig/Jordan Route PRN Reason Start Time Stop Time Status Last Admin Dose Admin Acetaminophen (Tylenol) 650 mg PRN Q4HRS PRN PO PAIN 05/11/21 13:15 05/16/21 13:53 Alprazolam (Xanax) 0.5 mg PRN Q4HRS PRN PO ANXIETY / AGITATION 05/11/21 13:15 05/17/21 09:41 DC 05/14/21 23:06 Alprazolam (Xanax) 0.5 mg QHS PO 05/11/21 21:00 05/12/21 13:43 DC 05/11/21 20:27 Ascorbic Acid (Vitamin C) 1,000 mg DAILY PO 05/12/21 09:00 05/23/21 08:23 Bupropion HCl (Wellbutrin Xl) 150 mg QODAY PO 05/12/21 09:00 05/16/21 09:01 DC 05/16/21 08:24 Clonidine HCl (Catapres) 0.1 mg BIDWMEALS PO 05/11/21 17:00 05/23/21 08:22 Divalproex Sodium (Depakote) 125 mg DAILY PO 05/12/21 09:00 05/12/21 13:43 DC 05/12/21 08:46 Divalproex Sodium (Depakote) 250 mg QHS PO 05/11/21 21:00 05/12/21 13:43 DC 05/11/21 20:29 Ferrous Sulfate (Feosol) 325 mg DAILY PO 05/12/21 09:00 05/23/21 08:24 Fluoxetine HCl (PROzac) 20 mg DAILY PO 05/12/21 09:00 05/23/21 08:21 Levothyroxine Sodium (Synthroid) 25 mcg DAILY06 PO 05/12/21 06:00 05/23/21 05:29 Metoprolol Tartrate (Lopressor) 25 mg BIDWMEALS PO 05/11/21 17:00 05/23/21 08:22 Olanzapine (ZyPREXA) 2.5 mg PRN BID PRN PO PSYCHOSIS 05/11/21 13:15 05/17/21 09:40 DC Olanzapine (ZyPREXA) 5 mg BID PO 05/11/21 21:00 05/12/21 13:43 DC 05/12/21 08:46 Docusate Sodium (Colace) 100 mg 1700 PO 05/11/21 17:00 05/22/21 16:57 Non-Formulary Medication (Ginkgo Biloba ) 120 mg BIDWMEALS PO 05/11/21 17:00 UNV Magnesium Oxide (Magnesium Oxide) 400 mg DAILY PO 05/12/21 09:00 05/23/21 08:23 Multivitamins/ Calcium (Thera-M Plus) 1 tab DAILY PO 05/12/21 09:00 05/23/21 08:21 Fish Oil (Fish Oil) 1,000 mg DAILY PO 05/12/21 09:00 05/23/21 08:21 Pantoprazole Sodium (Protonix) 40 mg DAILYAC PO 05/12/21 07:30 05/23/21 08:22 Atorvastatin Calcium (Lipitor) 80 mg DAILY PO 05/12/21 09:00 05/21/21 08:39 DC 05/20/21 09:08 Multi-Ingredient Ointment (Analgesic [place]) 1 wendy PRN QID PRN TP MUSCLE PAIN 05/11/21 13:30 Al Hydroxide/Mg Hydroxide (Mylanta Plus Xs) 15 ml PRN AFTMEALHC PRN PO DYSPEPSIA 05/11/21 13:30 Magnesium Hydroxide (Milk Of Magnesia) 2,400 mg PRN QHS PRN PO CONSTIPATION 05/11/21 13:30 Influenza Virus Vaccine Quadrival (Flulaval Quad [id number] Syringe) 0.5 ml ONCE ONCE VAX IM 05/12/21 09:00 05/12/21 09:01 DC 05/12/21 08:49 Divalproex Sodium (Depakote) 375 mg QHS PO 05/12/21 21:00 05/17/21 16:53 DC 05/16/21 20:25 Divalproex Sodium (Depakote) 250 mg DAILY PO 05/13/21 09:00 05/21/21 20:06 DC 05/21/21 08:55 Olanzapine (ZyPREXA) 7.5 mg BID PO 05/12/21 21:00 05/19/21 18:31 DC 05/19/21 11:11 Olanzapine (ZyPREXA) 2.5 mg PRN Q2HR PRN PO PSYCHOSIS 05/17/21 09:45 05/17/21 10:39 DC Lorazepam (Ativan) 1 mg PRN TID PRN PO ANXIETY / AGITATION 05/17/21 09:45 05/22/21 16:57 Olanzapine (ZyPREXA ZYDIS) 2.5 mg PRN Q2HRS PRN PO PSYCHOSIS 05/17/21 10:45 05/20/21 22:03 Divalproex Sodium (Depakote) 500 mg QHS PO 05/17/21 21:00 05/21/21 20:06 DC 05/20/21 20:12 Mirtazapine (Remeron) 7.5 mg QHS PO 05/18/21 21:00 05/20/21 21:43 DC 05/20/21 20:13 Olanzapine (ZyPREXA) 2.5 mg BID PO 05/19/21 21:00 05/22/21 20:16 DC 05/22/21 19:46 Risperidone (RisperDAL) 0.5 mg QHS PO 05/19/21 21:00 05/22/21 19:46 Mirtazapine (Remeron) 15 mg QHS PO 05/21/21 21:00 05/22/21 19:46 Atorvastatin Calcium (Lipitor) 80 mg HS PO 05/21/21 21:00 05/22/21 19:46 Melatonin (Melatonin) 3 mg QHS PO 05/21/21 21:00 05/22/21 19:46 Divalproex Sodium (Depakote Sprinkles) 250 mg DAILY PO 05/22/21 09:00 05/23/21 08:24 Divalproex Sodium (Depakote Sprinkles) 500 mg QHS PO 05/21/21 21:00 05/22/21 19:46 Olanzapine (ZyPREXA) 2.5 mg DAILY PO 05/23/21 09:00 05/23/21 08:23 Current Medications Medications (Trade) Dose Ordered Sig/Jordan Route PRN Reason Start Time Stop Time Status Last Admin Dose Admin Olanzapine (ZyPREXA) 2.5 mg DAILY PO 05/23/21 09:00 05/23/21 08:23 I have reviewed the current psychotropics carefully including drug interactions. Risk benefit ratio favors no change other than as noted in my dictated progress note. Diagnosis: Problems: (1) Major neurocognitive disorder (2) Anxiety disorder, unspecified (3) Major depressive disorder with psychotic features (4) Hypoxic brain injury (5) Dementia, vascular, with depression (6) Dementia, vascular, with delusions (7) Vascular dementia with behavior disturbance EDUARDO YBARRA MD May 23, 2021 10:04
[2021-05-23 13:37] LABS: BASO # 0.1 x10^3/uL (0.0-0.2); BASO % 1 % (0-3); EOS # 0.2 x10^3/uL (0.0-0.7); EOS % 3 % (0-3); HEMATOCRIT 31.3 % (36.0-47.0); HEMOGLOBIN 10.1 g/dL (12.0-15.5); LYMPH # 0.6 x10^3/uL (1.0-4.8); LYMPH % 10 % (24-48); MEAN CORPUSCULAR HEMOGLOBIN 29 pg (25-35); MEAN CORPUSCULAR HGB CONC 32 g/dL (31-37); MEAN CORPUSCULAR VOLUME 91 fL (79-100); MONO # 0.8 x10^3/uL (0.0-1.1); MONO % 13 % (0-9); NEUT # 4.6 x10^3uL (1.8-7.7); NEUT % 73 % (31-73); PLATELET COUNT 270 x10^3/uL (140-400); RED BLOOD COUNT 3.44 x10^6/uL (3.50-5.40); RED CELL DISTRIBUTION WIDTH 15.6 % (11.5-14.5); WHITE BLOOD COUNT 6.3 x10^3/uL (4.0-11.0)
[2021-05-23 14:09] LABS: ALBUMIN 2.7 g/dL (3.4-5.0); ALBUMIN/GLOBULIN RATIO 0.6 (1.0-1.7); CALCIUM 8.6 mg/dL (8.5-10.1); GFR 53.9; POTASSIUM 3.7 mmol/L (3.5-5.1); TOTAL BILIRUBIN 0.2 mg/dL (0.2-1.0); TOTAL PROTEIN 6.9 g/dL (6.4-8.2)
[2021-05-23 16:31] VITALS: BP 102/64
[2021-05-23] MEDS: DOCUSATE SODIUM 100 MG CAPSULE PO SCH ×2 (17:00→17:11)
[2021-05-23] MEDS: MIRTAZAPINE 15 MG TABLET PO SCH (19:57)
[2021-05-23] MEDS: MELATONIN 3 MG TABLET PO SCH (19:57)
[2021-05-23] MEDS: risperiDONE 0.5 MG TABLET. PO SCH (19:57)
[2021-05-23] MEDS: ATORVASTATIN CALCIUM 20 MG TABLET PO SCH (19:57)
--- NOTE | 2021-05-23 21:59 | PDOC ---
Exam Note: Sam Note: Please also refer to the separate dictated note~for this date of service dictated separately.~Patient seen individually. Discussed the patient with Nursing staff reviewed the chart.~Reviewed interim history and current functioning. Reviewed vital signs,~Labs/ Radiology~and current medications noted below. Continue current treatment with the changes noted in the dictated addendum note Assessment: Vital Signs/I&O: Vital Signs Date Time Temp Pulse Resp B/P (MAP) Pulse Ox O2 Delivery O2 Flow Rate FiO2 05/23/21 17:00 60 102/64 05/23/21 16:31 98.5 18 92 05/22/21 15:45 Room Air I & O 05/22/21 05/22/21 05/23/21 15:00 23:00 07:00 Intake Total 360 ml 460 ml Balance 360 ml 460 ml Labs: Laboratory Tests Test 05/23/21 13:16 White Blood Count 6.3 x10^3/uL (4.0-11.0) Red Blood Count 3.44 x10^6/uL (3.50-5.40) L Hemoglobin 10.1 g/dL (12.0-15.5) L Hematocrit 31.3 % (36.0-47.0) L Mean Corpuscular Volume 91 fL (79-100) Mean Corpuscular Hemoglobin 29 pg (25-35) Mean Corpuscular Hemoglobin Concent 32 g/dL (31-37) Red Cell Distribution Width 15.6 % (11.5-14.5) H Platelet Count 270 x10^3/uL (140-400) Neutrophils (%) (Auto) 73 % (31-73) Lymphocytes (%) (Auto) 10 % (24-48) L Monocytes (%) (Auto) 13 % (0-9) H Eosinophils (%) (Auto) 3 % (0-3) Basophils (%) (Auto) 1 % (0-3) Neutrophils # (Auto) 4.6 x10^3uL (1.8-7.7) Lymphocytes # (Auto) 0.6 x10^3/uL (1.0-4.8) L Monocytes # (Auto) 0.8 x10^3/uL (0.0-1.1) Eosinophils # (Auto) 0.2 x10^3/uL (0.0-0.7) Basophils # (Auto) 0.1 x10^3/uL (0.0-0.2) Sodium Level 143 mmol/L (136-145) Potassium Level 3.7 mmol/L (3.5-5.1) Chloride Level 107 mmol/L (98-107) Carbon Dioxide Level 27 mmol/L (21-32) Anion Gap 9 (6-14) Blood Urea Nitrogen 16 mg/dL (7-20) Creatinine 1.0 mg/dL (0.6-1.0) Estimated GFR (Cockcroft-Gault) 53.9 BUN/Creatinine Ratio 16 (6-20) Glucose Level 140 mg/dL (70-99) H Calcium Level 8.6 mg/dL (8.5-10.1) Total Bilirubin 0.2 mg/dL (0.2-1.0) Aspartate Amino Transferase (AST) 49 U/L (15-37) H Alanine Aminotransferase (ALT) 56 U/L (14-59) Alkaline Phosphatase 56 U/L (46-116) Total Protein 6.9 g/dL (6.4-8.2) Albumin 2.7 g/dL (3.4-5.0) L Albumin/Globulin Ratio 0.6 (1.0-1.7) L Current Medications: Meds: Laboratory Tests Test 05/23/21 13:16 White Blood Count 6.3 x10^3/uL Red Blood Count 3.44 x10^6/uL Hemoglobin 10.1 g/dL Hematocrit 31.3 % Mean Corpuscular Volume 91 fL Mean Corpuscular Hemoglobin 29 pg Mean Corpuscular Hemoglobin Concent 32 g/dL Red Cell Distribution Width 15.6 % Platelet Count 270 x10^3/uL Neutrophils (%) (Auto) 73 % Lymphocytes (%) (Auto) 10 % Monocytes (%) (Auto) 13 % Eosinophils (%) (Auto) 3 % Basophils (%) (Auto) 1 % Neutrophils # (Auto) 4.6 x10^3uL Lymphocytes # (Auto) 0.6 x10^3/uL Monocytes # (Auto) 0.8 x10^3/uL Eosinophils # (Auto) 0.2 x10^3/uL Basophils # (Auto) 0.1 x10^3/uL Sodium Level 143 mmol/L Potassium Level 3.7 mmol/L Chloride Level 107 mmol/L Carbon Dioxide Level 27 mmol/L Anion Gap 9 Blood Urea Nitrogen 16 mg/dL Creatinine 1.0 mg/dL Estimated GFR (Cockcroft-Gault) 53.9 BUN/Creatinine Ratio 16 Glucose Level 140 mg/dL Calcium Level 8.6 mg/dL Total Bilirubin 0.2 mg/dL Aspartate Amino Transf (AST/SGOT) 49 U/L Alanine Aminotransferase (ALT/SGPT) 56 U/L Alkaline Phosphatase 56 U/L Total Protein 6.9 g/dL Albumin 2.7 g/dL Albumin/Globulin Ratio 0.6 Current Medications Medications (Trade) Dose Ordered Sig/Jordan Route PRN Reason Start Time Stop Time Status Last Admin Dose Admin Acetaminophen (Tylenol) 650 mg PRN Q4HRS PRN PO PAIN 05/11/21 13:15 05/16/21 13:53 Alprazolam (Xanax) 0.5 mg PRN Q4HRS PRN PO ANXIETY / AGITATION 05/11/21 13:15 05/17/21 09:41 DC 05/14/21 23:06 Alprazolam (Xanax) 0.5 mg QHS PO 05/11/21 21:00 05/12/21 13:43 DC 05/11/21 20:27 Ascorbic Acid (Vitamin C) 1,000 mg DAILY PO 05/12/21 09:00 05/23/21 08:23 Bupropion HCl (Wellbutrin Xl) 150 mg QODAY PO 05/12/21 09:00 05/16/21 09:01 DC 05/16/21 08:24 Clonidine HCl (Catapres) 0.1 mg BIDWMEALS PO 05/11/21 17:00 05/23/21 08:22 Divalproex Sodium (Depakote) 125 mg DAILY PO 05/12/21 09:00 05/12/21 13:43 DC 05/12/21 08:46 Divalproex Sodium (Depakote) 250 mg QHS PO 05/11/21 21:00 05/12/21 13:43 DC 05/11/21 20:29 Ferrous Sulfate (Feosol) 325 mg DAILY PO 05/12/21 09:00 05/23/21 08:24 Fluoxetine HCl (PROzac) 20 mg DAILY PO 05/12/21 09:00 05/23/21 08:21 Levothyroxine Sodium (Synthroid) 25 mcg DAILY06 PO 05/12/21 06:00 05/23/21 05:29 Metoprolol Tartrate (Lopressor) 25 mg BIDWMEALS PO 05/11/21 17:00 05/23/21 08:22 Olanzapine (ZyPREXA) 2.5 mg PRN BID PRN PO PSYCHOSIS 05/11/21 13:15 05/17/21 09:40 DC Olanzapine (ZyPREXA) 5 mg BID PO 05/11/21 21:00 05/12/21 13:43 DC 05/12/21 08:46 Docusate Sodium (Colace) 100 mg 1700 PO 05/11/21 17:00 05/22/21 16:57 Non-Formulary Medication (Ginkgo Biloba ) 120 mg BIDWMEALS PO 05/11/21 17:00 UNV Magnesium Oxide (Magnesium Oxide) 400 mg DAILY PO 05/12/21 09:00 05/23/21 08:23 Multivitamins/ Calcium (Thera-M Plus) 1 tab DAILY PO 05/12/21 09:00 05/23/21 08:21 Fish Oil (Fish Oil) 1,000 mg DAILY PO 05/12/21 09:00 05/23/21 11:15 DC 05/23/21 08:21 Pantoprazole Sodium (Protonix) 40 mg DAILYAC PO 05/12/21 07:30 05/23/21 08:22 Atorvastatin Calcium (Lipitor) 80 mg DAILY PO 05/12/21 09:00 05/21/21 08:39 DC 05/20/21 09:08 Multi-Ingredient Ointment (Analgesic [place]) 1 wendy PRN QID PRN TP MUSCLE PAIN 05/11/21 13:30 Al Hydroxide/Mg Hydroxide (Mylanta Plus Xs) 15 ml PRN AFTMEALHC PRN PO DYSPEPSIA 05/11/21 13:30 Magnesium Hydroxide (Milk Of Magnesia) 2,400 mg PRN QHS PRN PO CONSTIPATION 05/11/21 13:30 Influenza Virus Vaccine Quadrival (Flulaval Quad [id number] Syringe) 0.5 ml ONCE ONCE VAX IM 05/12/21 09:00 05/12/21 09:01 DC 05/12/21 08:49 Divalproex Sodium (Depakote) 375 mg QHS PO 05/12/21 21:00 05/17/21 16:53 DC 05/16/21 20:25 Divalproex Sodium (Depakote) 250 mg DAILY PO 05/13/21 09:00 05/21/21 20:06 DC 05/21/21 08:55 Olanzapine (ZyPREXA) 7.5 mg BID PO 05/12/21 21:00 05/19/21 18:31 DC 05/19/21 11:11 Olanzapine (ZyPREXA) 2.5 mg PRN Q2HR PRN PO PSYCHOSIS 05/17/21 09:45 05/17/21 10:39 DC Lorazepam (Ativan) 1 mg PRN TID PRN PO ANXIETY / AGITATION 05/17/21 09:45 05/22/21 16:57 Olanzapine (ZyPREXA ZYDIS) 2.5 mg PRN Q2HRS PRN PO PSYCHOSIS 05/17/21 10:45 05/20/21 22:03 Divalproex Sodium (Depakote) 500 mg QHS PO 05/17/21 21:00 05/21/21 20:06 DC 05/20/21 20:12 Mirtazapine (Remeron) 7.5 mg QHS PO 05/18/21 21:00 05/20/21 21:43 DC 05/20/21 20:13 Olanzapine (ZyPREXA) 2.5 mg BID PO 05/19/21 21:00 05/22/21 20:16 DC 05/22/21 19:46 Risperidone (RisperDAL) 0.5 mg QHS PO 05/19/21 21:00 05/23/21 19:57 Mirtazapine (Remeron) 15 mg QHS PO 05/21/21 21:00 05/23/21 19:57 Atorvastatin Calcium (Lipitor) 80 mg HS PO 05/21/21 21:00 05/23/21 19:57 Melatonin (Melatonin) 3 mg QHS PO 05/21/21 21:00 05/23/21 19:57 Divalproex Sodium (Depakote Sprinkles) 250 mg DAILY PO 05/22/21 09:00 05/23/21 08:24 Divalproex Sodium (Depakote Sprinkles) 500 mg QHS PO 05/21/21 21:00 05/23/21 19:58 Olanzapine (ZyPREXA) 2.5 mg DAILY PO 05/23/21 09:00 05/23/21 18:11 DC 05/23/21 08:23 Risperidone (RisperDAL) 0.25 mg DAILY PO 05/24/21 09:00 Current Medications Medications (Trade) Dose Ordered Sig/Jordan Route PRN Reason Start Time Stop Time Status Last Admin Dose Admin Olanzapine (ZyPREXA) 2.5 mg DAILY PO 05/23/21 09:00 05/23/21 18:11 DC 05/23/21 08:23 I have reviewed the current psychotropics carefully including drug interactions. Risk benefit ratio favors no change other than as noted in my dictated progress note. Diagnosis: Problems: (1) Major neurocognitive disorder (2) Anxiety disorder, unspecified (3) Major depressive disorder with psychotic features (4) Dementia, vascular, with depression (5) Dementia, vascular, with delusions (6) Vascular dementia with behavior disturbance EDUARDO YBARRA MD May 23, 2021 21:59
[2021-05-24] MEDS: LEVOTHYROXINE 25 MCG TABLET. PO SCH (05:34)
[2021-05-24 06:07] VITALS: BP 161/74
[2021-05-24] MEDS: DIVALPROEX 125 MG CAP.SPRINK PO SCH ×2 (08:35→21:00)
[2021-05-24] MEDS: MAGNESIUM OXIDE 400 MG TABLET PO SCH (08:35)
[2021-05-24] MEDS: PANTOPRAZOLE 40 MG TABLET. PO SCH (08:35)
[2021-05-24] MEDS: ASCORBIC ACID 1,000 MG TABLET PO SCH (08:35)
[2021-05-24] MEDS: MULTIVITAMIN with MINERAL TABLET. PO SCH (08:35)
[2021-05-24] MEDS: cloNIDine HCL 0.1 MG TABLET PO SCH ×2 (08:35→16:53)
[2021-05-24] MEDS: FERROUS SULFATE 325 MG TABLET. PO SCH (08:36)
[2021-05-24] MEDS: METOPROLOL TART IMMED RELEASE 25 MG TABLET. PO SCH ×2 (08:36→16:54)
[2021-05-24] MEDS: risperiDONE 0.25 MG TABLET. PO SCH (08:40)
[2021-05-24 15:42] VITALS: BP 100/61
[2021-05-24] MEDS: DOCUSATE SODIUM 100 MG CAPSULE PO SCH (16:53)
[2021-05-24] MEDS: risperiDONE 0.5 MG TABLET. PO SCH (21:00)
[2021-05-24] MEDS: ATORVASTATIN CALCIUM 20 MG TABLET PO SCH (21:00)
[2021-05-24] MEDS: MIRTAZAPINE 15 MG TABLET PO SCH (21:00)
[2021-05-24] MEDS: MELATONIN 3 MG TABLET PO SCH (21:00)
--- NOTE | 2021-05-24 22:03 | PDOC ---
Exam Note: Sam Note: Please also refer to the separate dictated note~for this date of service dictated separately.~Patient seen individually. Discussed the patient with Nursing staff reviewed the chart.~Reviewed interim history and current functioning. Reviewed vital signs,~Labs/ Radiology~and current medications noted below. Continue current treatment with the changes noted in the dictated addendum note Assessment: Vital Signs/I&O: Vital Signs Date Time Temp Pulse Resp B/P (MAP) Pulse Ox O2 Delivery O2 Flow Rate FiO2 05/24/21 16:54 61 100/61 05/24/21 15:42 97.1 16 97 Room Air I & O 05/23/21 05/23/21 05/24/21 15:00 23:00 07:00 Intake Total 600 ml 300 ml Balance 600 ml 300 ml Labs: Laboratory Tests Test 05/24/21 06:00 SARS-CoV-2 (PCR) Not detected (NOT DETECTD) Current Medications: Meds: Laboratory Tests Test 05/24/21 06:00 Coronavirus (COVID-19)(PCR) Not detected Current Medications Medications (Trade) Dose Ordered Sig/Jordan Route PRN Reason Start Time Stop Time Status Last Admin Dose Admin Acetaminophen (Tylenol) 650 mg PRN Q4HRS PRN PO PAIN 05/11/21 13:15 05/16/21 13:53 Alprazolam (Xanax) 0.5 mg PRN Q4HRS PRN PO ANXIETY / AGITATION 05/11/21 13:15 05/17/21 09:41 DC 05/14/21 23:06 Alprazolam (Xanax) 0.5 mg QHS PO 05/11/21 21:00 05/12/21 13:43 DC 05/11/21 20:27 Ascorbic Acid (Vitamin C) 1,000 mg DAILY PO 05/12/21 09:00 05/24/21 08:35 Bupropion HCl (Wellbutrin Xl) 150 mg QODAY PO 05/12/21 09:00 05/16/21 09:01 DC 05/16/21 08:24 Clonidine HCl (Catapres) 0.1 mg BIDWMEALS PO 05/11/21 17:00 05/24/21 16:53 Divalproex Sodium (Depakote) 125 mg DAILY PO 05/12/21 09:00 05/12/21 13:43 DC 05/12/21 08:46 Divalproex Sodium (Depakote) 250 mg QHS PO 05/11/21 21:00 05/12/21 13:43 DC 05/11/21 20:29 Ferrous Sulfate (Feosol) 325 mg DAILY PO 05/12/21 09:00 05/24/21 08:36 Fluoxetine HCl (PROzac) 20 mg DAILY PO 05/12/21 09:00 05/24/21 08:39 Levothyroxine Sodium (Synthroid) 25 mcg DAILY06 PO 05/12/21 06:00 05/24/21 05:34 Metoprolol Tartrate (Lopressor) 25 mg BIDWMEALS PO 05/11/21 17:00 05/24/21 16:54 Olanzapine (ZyPREXA) 2.5 mg PRN BID PRN PO PSYCHOSIS 05/11/21 13:15 05/17/21 09:40 DC Olanzapine (ZyPREXA) 5 mg BID PO 05/11/21 21:00 05/12/21 13:43 DC 05/12/21 08:46 Docusate Sodium (Colace) 100 mg 1700 PO 05/11/21 17:00 05/24/21 16:53 Non-Formulary Medication (Ginkgo Biloba ) 120 mg BIDWMEALS PO 05/11/21 17:00 UNV Magnesium Oxide (Magnesium Oxide) 400 mg DAILY PO 05/12/21 09:00 05/24/21 08:35 Multivitamins/ Calcium (Thera-M Plus) 1 tab DAILY PO 05/12/21 09:00 05/24/21 08:35 Fish Oil (Fish Oil) 1,000 mg DAILY PO 05/12/21 09:00 05/23/21 11:15 DC 05/23/21 08:21 Pantoprazole Sodium (Protonix) 40 mg DAILYAC PO 05/12/21 07:30 05/24/21 08:35 Atorvastatin Calcium (Lipitor) 80 mg DAILY PO 05/12/21 09:00 05/21/21 08:39 DC 05/20/21 09:08 Multi-Ingredient Ointment (Analgesic [place]) 1 wendy PRN QID PRN TP MUSCLE PAIN 05/11/21 13:30 Al Hydroxide/Mg Hydroxide (Mylanta Plus Xs) 15 ml PRN AFTMEALHC PRN PO DYSPEPSIA 05/11/21 13:30 Magnesium Hydroxide (Milk Of Magnesia) 2,400 mg PRN QHS PRN PO CONSTIPATION 05/11/21 13:30 Influenza Virus Vaccine Quadrival (Flulaval Quad [id number] Syringe) 0.5 ml ONCE ONCE VAX IM 05/12/21 09:00 05/12/21 09:01 DC 05/12/21 08:49 Divalproex Sodium (Depakote) 375 mg QHS PO 05/12/21 21:00 05/17/21 16:53 DC 05/16/21 20:25 Divalproex Sodium (Depakote) 250 mg DAILY PO 05/13/21 09:00 05/21/21 20:06 DC 05/21/21 08:55 Olanzapine (ZyPREXA) 7.5 mg BID PO 05/12/21 21:00 05/19/21 18:31 DC 05/19/21 11:11 Olanzapine (ZyPREXA) 2.5 mg PRN Q2HR PRN PO PSYCHOSIS 05/17/21 09:45 05/17/21 10:39 DC Lorazepam (Ativan) 1 mg PRN TID PRN PO ANXIETY / AGITATION 05/17/21 09:45 05/22/21 16:57 Olanzapine (ZyPREXA ZYDIS) 2.5 mg PRN Q2HRS PRN PO PSYCHOSIS 05/17/21 10:45 05/20/21 22:03 Divalproex Sodium (Depakote) 500 mg QHS PO 05/17/21 21:00 05/21/21 20:06 DC 05/20/21 20:12 Mirtazapine (Remeron) 7.5 mg QHS PO 05/18/21 21:00 05/20/21 21:43 DC 05/20/21 20:13 Olanzapine (ZyPREXA) 2.5 mg BID PO 05/19/21 21:00 05/22/21 20:16 DC 05/22/21 19:46 Risperidone (RisperDAL) 0.5 mg QHS PO 05/19/21 21:00 05/24/21 21:00 Mirtazapine (Remeron) 15 mg QHS PO 05/21/21 21:00 05/24/21 21:00 Atorvastatin Calcium (Lipitor) 80 mg HS PO 05/21/21 21:00 05/24/21 21:00 Melatonin (Melatonin) 3 mg QHS PO 05/21/21 21:00 05/24/21 21:00 Divalproex Sodium (Depakote Sprinkles) 250 mg DAILY PO 05/22/21 09:00 05/24/21 08:35 Divalproex Sodium (Depakote Sprinkles) 500 mg QHS PO 05/21/21 21:00 05/24/21 21:00 Olanzapine (ZyPREXA) 2.5 mg DAILY PO 05/23/21 09:00 05/23/21 18:11 DC 05/23/21 08:23 Risperidone (RisperDAL) 0.25 mg DAILY PO 05/24/21 09:00 05/24/21 08:40 Current Medications Medications (Trade) Dose Ordered Sig/Jordan Route PRN Reason Start Time Stop Time Status Last Admin Dose Admin Risperidone (RisperDAL) 0.25 mg DAILY PO 05/24/21 09:00 05/24/21 08:40 I have reviewed the current psychotropics carefully including drug interactions. Risk benefit ratio favors no change other than as noted in my dictated progress note. Diagnosis: Problems: (1) Major neurocognitive disorder (2) Anxiety disorder, unspecified (3) Major depressive disorder with psychotic features (4) Dementia, vascular, with depression (5) Dementia, vascular, with delusions (6) Vascular dementia with behavior disturbance EDUARDO YBARRA MD May 24, 2021 22:03
[2021-05-25] MEDS: LEVOTHYROXINE 25 MCG TABLET. PO SCH (05:41)
[2021-05-25 06:28] VITALS: BP 151/47
--- NOTE | 2021-05-25 08:30 | PDOC ---
Exam Note: Sam Note: This note is a late entry for 05/23/2021 covers elements not covered in my initial note. Subjective: The patient was seen individually in the evening of 05/23/2021 with Benjamin PATINO, discussed and reviewed the chart. The patient slept 7 hours previous night. She has been disorganized, anxious, restless, wandering. She removed her pants and was wandering the hallways, defecated in her chair in the hallway, oblivious of what she was doing. She has refused 5 p.m. medications. Her BP was 102/64, pulse 60. AST 49, ALT 56, some improvement from before. Review of Systems: No CV, , pulmonary, eye, ENT system symptoms on review. Reliability poor. Mental Status Exam: The patient is oriented to herself. Insight and judgment, recent and remote memory, attention and concentration, fund of knowledge is poor consistent with her diagnoses. Laboratory Data: Reviewed. Impression: Major neurocognitive disorder Alzheimer, vascular with delusion, depression, behavioral disturbance. Anxiety disorder, unspecified. Impulse control disorder, unspecified. Plan: Continue current psychotropics. We will go ahead and stop the a.m. Zyprexa 2.5 mg. Start Risperdal 0.25 mg a.m. Continue 0.5 mg h.s. Continue Prozac, Depakote at current dosage. Adjust further as clinically indicated. Assessment: Vital Signs/I&O: Vital Signs Date Time Temp Pulse Resp B/P (MAP) Pulse Ox O2 Delivery O2 Flow Rate FiO2 05/25/21 06:28 97.9 83 18 151/47 (81) 94 05/24/21 15:42 Room Air I & O 05/24/21 05/24/21 05/25/21 15:00 23:00 07:00 Intake Total 660 ml 480 ml Balance 660 ml 480 ml Current Medications: Meds: Current Medications Medications (Trade) Dose Ordered Sig/Jordan Route PRN Reason Start Time Stop Time Status Last Admin Dose Admin Acetaminophen (Tylenol) 650 mg PRN Q4HRS PRN PO PAIN 05/11/21 13:15 05/16/21 13:53 Alprazolam (Xanax) 0.5 mg PRN Q4HRS PRN PO ANXIETY / AGITATION 05/11/21 13:15 05/17/21 09:41 DC 05/14/21 23:06 Alprazolam (Xanax) 0.5 mg QHS PO 05/11/21 21:00 05/12/21 13:43 DC 05/11/21 20:27 Ascorbic Acid (Vitamin C) 1,000 mg DAILY PO 05/12/21 09:00 05/24/21 08:35 Bupropion HCl (Wellbutrin Xl) 150 mg QODAY PO 05/12/21 09:00 05/16/21 09:01 DC 05/16/21 08:24 Clonidine HCl (Catapres) 0.1 mg BIDWMEALS PO 05/11/21 17:00 05/24/21 16:53 Divalproex Sodium (Depakote) 125 mg DAILY PO 05/12/21 09:00 05/12/21 13:43 DC 05/12/21 08:46 Divalproex Sodium (Depakote) 250 mg QHS PO 05/11/21 21:00 05/12/21 13:43 DC 05/11/21 20:29 Ferrous Sulfate (Feosol) 325 mg DAILY PO 05/12/21 09:00 05/24/21 08:36 Fluoxetine HCl (PROzac) 20 mg DAILY PO 05/12/21 09:00 05/24/21 08:39 Levothyroxine Sodium (Synthroid) 25 mcg DAILY06 PO 05/12/21 06:00 05/25/21 05:41 Metoprolol Tartrate (Lopressor) 25 mg BIDWMEALS PO 05/11/21 17:00 05/24/21 16:54 Olanzapine (ZyPREXA) 2.5 mg PRN BID PRN PO PSYCHOSIS 05/11/21 13:15 05/17/21 09:40 DC Olanzapine (ZyPREXA) 5 mg BID PO 05/11/21 21:00 05/12/21 13:43 DC 05/12/21 08:46 Docusate Sodium (Colace) 100 mg 1700 PO 05/11/21 17:00 05/24/21 16:53 Non-Formulary Medication (Ginkgo Biloba ) 120 mg BIDWMEALS PO 05/11/21 17:00 UNV Magnesium Oxide (Magnesium Oxide) 400 mg DAILY PO 05/12/21 09:00 05/24/21 08:35 Multivitamins/ Calcium (Thera-M Plus) 1 tab DAILY PO 05/12/21 09:00 05/24/21 08:35 Fish Oil (Fish Oil) 1,000 mg DAILY PO 05/12/21 09:00 05/23/21 11:15 DC 05/23/21 08:21 Pantoprazole Sodium (Protonix) 40 mg DAILYAC PO 05/12/21 07:30 05/24/21 08:35 Atorvastatin Calcium (Lipitor) 80 mg DAILY PO 05/12/21 09:00 05/21/21 08:39 DC 05/20/21 09:08 Multi-Ingredient Ointment (Analgesic [place]) 1 wendy PRN QID PRN TP MUSCLE PAIN 05/11/21 13:30 Al Hydroxide/Mg Hydroxide (Mylanta Plus Xs) 15 ml PRN AFTMEALHC PRN PO DYSPEPSIA 05/11/21 13:30 Magnesium Hydroxide (Milk Of Magnesia) 2,400 mg PRN QHS PRN PO CONSTIPATION 05/11/21 13:30 Influenza Virus Vaccine Quadrival (Flulaval Quad [id number] Syringe) 0.5 ml ONCE ONCE VAX IM 05/12/21 09:00 05/12/21 09:01 DC 05/12/21 08:49 Divalproex Sodium (Depakote) 375 mg QHS PO 05/12/21 21:00 05/17/21 16:53 DC 05/16/21 20:25 Divalproex Sodium (Depakote) 250 mg DAILY PO 05/13/21 09:00 05/21/21 20:06 DC 05/21/21 08:55 Olanzapine (ZyPREXA) 7.5 mg BID PO 05/12/21 21:00 05/19/21 18:31 DC 05/19/21 11:11 Olanzapine (ZyPREXA) 2.5 mg PRN Q2HR PRN PO PSYCHOSIS 05/17/21 09:45 05/17/21 10:39 DC Lorazepam (Ativan) 1 mg PRN TID PRN PO ANXIETY / AGITATION 05/17/21 09:45 05/22/21 16:57 Olanzapine (ZyPREXA ZYDIS) 2.5 mg PRN Q2HRS PRN PO PSYCHOSIS 05/17/21 10:45 05/20/21 22:03 Divalproex Sodium (Depakote) 500 mg QHS PO 05/17/21 21:00 05/21/21 20:06 DC 05/20/21 20:12 Mirtazapine (Remeron) 7.5 mg QHS PO 05/18/21 21:00 05/20/21 21:43 DC 05/20/21 20:13 Olanzapine (ZyPREXA) 2.5 mg BID PO 05/19/21 21:00 05/22/21 20:16 DC 05/22/21 19:46 Risperidone (RisperDAL) 0.5 mg QHS PO 05/19/21 21:00 05/24/21 21:00 Mirtazapine (Remeron) 15 mg QHS PO 05/21/21 21:00 05/24/21 21:00 Atorvastatin Calcium (Lipitor) 80 mg HS PO 05/21/21 21:00 05/24/21 21:00 Melatonin (Melatonin) 3 mg QHS PO 05/21/21 21:00 05/24/21 21:00 Divalproex Sodium (Depakote Sprinkles) 250 mg DAILY PO 05/22/21 09:00 05/24/21 08:35 Divalproex Sodium (Depakote Sprinkles) 500 mg QHS PO 05/21/21 21:00 05/24/21 21:00 Olanzapine (ZyPREXA) 2.5 mg DAILY PO 05/23/21 09:00 05/23/21 18:11 DC 05/23/21 08:23 Risperidone (RisperDAL) 0.25 mg DAILY PO 05/24/21 09:00 05/24/21 08:40 Current Medications Medications (Trade) Dose Ordered Sig/Jordan Route PRN Reason Start Time Stop Time Status Last Admin Dose Admin Risperidone (RisperDAL) 0.25 mg DAILY PO 05/24/21 09:00 05/24/21 08:40 I have reviewed the current psychotropics carefully including drug interactions. Risk benefit ratio favors no change other than as noted in my dictated progress note. Diagnosis: Problems: (1) Major neurocognitive disorder (2) Anxiety disorder, unspecified (3) Major depressive disorder with psychotic features (4) Dementia, vascular, with depression (5) Dementia, vascular, with delusions (6) Vascular dementia with behavior disturbance AMADA,MAN M MD May 25, 2021 08:30
[2021-05-25] MEDS: cloNIDine HCL 0.1 MG TABLET PO SCH ×2 (08:33→17:44)
[2021-05-25] MEDS: METOPROLOL TART IMMED RELEASE 25 MG TABLET. PO SCH ×2 (08:33→17:44)
[2021-05-25] MEDS: PANTOPRAZOLE 40 MG TABLET. PO SCH (08:33)
[2021-05-25] MEDS: MAGNESIUM OXIDE 400 MG TABLET PO SCH (08:33)
[2021-05-25] MEDS: ASCORBIC ACID 1,000 MG TABLET PO SCH (08:33)
[2021-05-25] MEDS: FERROUS SULFATE 325 MG TABLET. PO SCH (08:33)
[2021-05-25] MEDS: MULTIVITAMIN with MINERAL TABLET. PO SCH (08:34)
[2021-05-25] MEDS: risperiDONE 0.25 MG TABLET. PO SCH (08:34)
[2021-05-25] MEDS: DIVALPROEX 125 MG CAP.SPRINK PO SCH ×2 (08:34→20:00)
--- NOTE | 2021-05-25 08:50 | PDOC ---
Exam Note: Sam Note: This note is a late entry for 05/24/2021 covers elements not covered in my initial note. Subjective: The patient was seen individually in the evening of 05/24/2021 with Vladimir PATINO, discussed and reviewed the chart. The patient slept 7 hours previous night. Overall she remains confused, less agitated, less anxious. Review of Systems: No CV, , pulmonary, eye, ENT system symptoms on review. Reliability poor. Mental Status Exam: The patient is oriented to herself. Insight and judgment, recent and remote memory, attention and concentration, fund of knowledge is poor consistent with her diagnoses. Laboratory Data: Reviewed. Impression: Major neurocognitive disorder Alzheimer, vascular with delusion, depression, behavioral disturbance. Anxiety disorder, unspecified. Impulse control disorder, unspecified. Plan: Continue current psychotropics. Assessment: Vital Signs/I&O: Vital Signs Date Time Temp Pulse Resp B/P (MAP) Pulse Ox O2 Delivery O2 Flow Rate FiO2 05/25/21 08:33 83 151/47 05/25/21 06:28 97.9 18 94 05/24/21 15:42 Room Air I & O 05/24/21 05/24/21 05/25/21 15:00 23:00 07:00 Intake Total 660 ml 480 ml Balance 660 ml 480 ml Current Medications: Meds: Current Medications Medications (Trade) Dose Ordered Sig/Jordan Route PRN Reason Start Time Stop Time Status Last Admin Dose Admin Acetaminophen (Tylenol) 650 mg PRN Q4HRS PRN PO PAIN 05/11/21 13:15 05/16/21 13:53 Alprazolam (Xanax) 0.5 mg PRN Q4HRS PRN PO ANXIETY / AGITATION 05/11/21 13:15 05/17/21 09:41 DC 05/14/21 23:06 Alprazolam (Xanax) 0.5 mg QHS PO 05/11/21 21:00 05/12/21 13:43 DC 05/11/21 20:27 Ascorbic Acid (Vitamin C) 1,000 mg DAILY PO 05/12/21 09:00 05/25/21 08:33 Bupropion HCl (Wellbutrin Xl) 150 mg QODAY PO 05/12/21 09:00 05/16/21 09:01 DC 05/16/21 08:24 Clonidine HCl (Catapres) 0.1 mg BIDWMEALS PO 05/11/21 17:00 05/25/21 08:33 Divalproex Sodium (Depakote) 125 mg DAILY PO 05/12/21 09:00 05/12/21 13:43 DC 05/12/21 08:46 Divalproex Sodium (Depakote) 250 mg QHS PO 05/11/21 21:00 05/12/21 13:43 DC 05/11/21 20:29 Ferrous Sulfate (Feosol) 325 mg DAILY PO 05/12/21 09:00 05/25/21 08:33 Fluoxetine HCl (PROzac) 20 mg DAILY PO 05/12/21 09:00 05/25/21 08:33 Levothyroxine Sodium (Synthroid) 25 mcg DAILY06 PO 05/12/21 06:00 05/25/21 05:41 Metoprolol Tartrate (Lopressor) 25 mg BIDWMEALS PO 05/11/21 17:00 05/25/21 08:33 Olanzapine (ZyPREXA) 2.5 mg PRN BID PRN PO PSYCHOSIS 05/11/21 13:15 05/17/21 09:40 DC Olanzapine (ZyPREXA) 5 mg BID PO 05/11/21 21:00 05/12/21 13:43 DC 05/12/21 08:46 Docusate Sodium (Colace) 100 mg 1700 PO 05/11/21 17:00 05/24/21 16:53 Non-Formulary Medication (Ginkgo Biloba ) 120 mg BIDWMEALS PO 05/11/21 17:00 UNV Magnesium Oxide (Magnesium Oxide) 400 mg DAILY PO 05/12/21 09:00 05/25/21 08:33 Multivitamins/ Calcium (Thera-M Plus) 1 tab DAILY PO 05/12/21 09:00 05/25/21 08:34 Fish Oil (Fish Oil) 1,000 mg DAILY PO 05/12/21 09:00 05/23/21 11:15 DC 05/23/21 08:21 Pantoprazole Sodium (Protonix) 40 mg DAILYAC PO 05/12/21 07:30 05/25/21 08:33 Atorvastatin Calcium (Lipitor) 80 mg DAILY PO 05/12/21 09:00 05/21/21 08:39 DC 05/20/21 09:08 Multi-Ingredient Ointment (Analgesic [place]) 1 wendy PRN QID PRN TP MUSCLE PAIN 05/11/21 13:30 Al Hydroxide/Mg Hydroxide (Mylanta Plus Xs) 15 ml PRN AFTMEALHC PRN PO DYSPEPSIA 05/11/21 13:30 Magnesium Hydroxide (Milk Of Magnesia) 2,400 mg PRN QHS PRN PO CONSTIPATION 05/11/21 13:30 Influenza Virus Vaccine Quadrival (Flulaval Quad [id number] Syringe) 0.5 ml ONCE ONCE VAX IM 05/12/21 09:00 05/12/21 09:01 DC 05/12/21 08:49 Divalproex Sodium (Depakote) 375 mg QHS PO 05/12/21 21:00 05/17/21 16:53 DC 05/16/21 20:25 Divalproex Sodium (Depakote) 250 mg DAILY PO 05/13/21 09:00 05/21/21 20:06 DC 05/21/21 08:55 Olanzapine (ZyPREXA) 7.5 mg BID PO 05/12/21 21:00 05/19/21 18:31 DC 05/19/21 11:11 Olanzapine (ZyPREXA) 2.5 mg PRN Q2HR PRN PO PSYCHOSIS 05/17/21 09:45 05/17/21 10:39 DC Lorazepam (Ativan) 1 mg PRN TID PRN PO ANXIETY / AGITATION 05/17/21 09:45 05/22/21 16:57 Olanzapine (ZyPREXA ZYDIS) 2.5 mg PRN Q2HRS PRN PO PSYCHOSIS 05/17/21 10:45 05/20/21 22:03 Divalproex Sodium (Depakote) 500 mg QHS PO 05/17/21 21:00 05/21/21 20:06 DC 05/20/21 20:12 Mirtazapine (Remeron) 7.5 mg QHS PO 05/18/21 21:00 05/20/21 21:43 DC 05/20/21 20:13 Olanzapine (ZyPREXA) 2.5 mg BID PO 05/19/21 21:00 05/22/21 20:16 DC 05/22/21 19:46 Risperidone (RisperDAL) 0.5 mg QHS PO 05/19/21 21:00 05/24/21 21:00 Mirtazapine (Remeron) 15 mg QHS PO 05/21/21 21:00 05/24/21 21:00 Atorvastatin Calcium (Lipitor) 80 mg HS PO 05/21/21 21:00 05/24/21 21:00 Melatonin (Melatonin) 3 mg QHS PO 05/21/21 21:00 05/24/21 21:00 Divalproex Sodium (Depakote Sprinkles) 250 mg DAILY PO 05/22/21 09:00 05/25/21 08:34 Divalproex Sodium (Depakote Sprinkles) 500 mg QHS PO 05/21/21 21:00 05/24/21 21:00 Olanzapine (ZyPREXA) 2.5 mg DAILY PO 05/23/21 09:00 05/23/21 18:11 DC 05/23/21 08:23 Risperidone (RisperDAL) 0.25 mg DAILY PO 05/24/21 09:00 05/25/21 08:34 Current Medications Medications (Trade) Dose Ordered Sig/Jordan Route PRN Reason Start Time Stop Time Status Last Admin Dose Admin Risperidone (RisperDAL) 0.25 mg DAILY PO 05/24/21 09:00 05/25/21 08:34 I have reviewed the current psychotropics carefully including drug interactions. Risk benefit ratio favors no change other than as noted in my dictated progress note. Diagnosis: Problems: (1) Major neurocognitive disorder (2) Anxiety disorder, unspecified (3) Major depressive disorder with psychotic features (4) Dementia, vascular, with depression (5) Dementia, vascular, with delusions (6) Vascular dementia with behavior disturbance EDUARDO YBARRA MD May 25, 2021 08:50
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
[2021-05-25 16:53] VITALS: BP 107/67
[2021-05-25] MEDS: DOCUSATE SODIUM 100 MG CAPSULE PO SCH (17:45)
[2021-05-25] MEDS: ATORVASTATIN CALCIUM 20 MG TABLET PO SCH (19:59)
[2021-05-25] MEDS: MIRTAZAPINE 15 MG TABLET PO SCH (20:00)
[2021-05-25] MEDS: MELATONIN 3 MG TABLET PO SCH (20:00)
[2021-05-25] MEDS: risperiDONE 0.5 MG TABLET. PO SCH (20:00)
--- NOTE | 2021-05-25 22:02 | PDOC ---
Exam Note: Sam Note: Please also refer to the separate dictated note~for this date of service dictated separately.~Patient seen individually. Discussed the patient with Nursing staff reviewed the chart.~Reviewed interim history and current functioning. Reviewed vital signs,~Labs/ Radiology~and current medications noted below. Continue current treatment with the changes noted in the dictated addendum note Assessment: Vital Signs/I&O: Vital Signs Date Time Temp Pulse Resp B/P (MAP) Pulse Ox O2 Delivery O2 Flow Rate FiO2 05/25/21 17:44 67 107/67 05/25/21 16:53 18 98 Room Air 05/25/21 06:28 97.9 I & O 05/24/21 05/24/21 05/25/21 15:00 23:00 07:00 Intake Total 660 ml 480 ml Balance 660 ml 480 ml Current Medications: Meds: Current Medications Medications (Trade) Dose Ordered Sig/Jordan Route PRN Reason Start Time Stop Time Status Last Admin Dose Admin Acetaminophen (Tylenol) 650 mg PRN Q4HRS PRN PO PAIN 05/11/21 13:15 05/16/21 13:53 Alprazolam (Xanax) 0.5 mg PRN Q4HRS PRN PO ANXIETY / AGITATION 05/11/21 13:15 05/17/21 09:41 DC 05/14/21 23:06 Alprazolam (Xanax) 0.5 mg QHS PO 05/11/21 21:00 05/12/21 13:43 DC 05/11/21 20:27 Ascorbic Acid (Vitamin C) 1,000 mg DAILY PO 05/12/21 09:00 05/25/21 08:33 Bupropion HCl (Wellbutrin Xl) 150 mg QODAY PO 05/12/21 09:00 05/16/21 09:01 DC 05/16/21 08:24 Clonidine HCl (Catapres) 0.1 mg BIDWMEALS PO 05/11/21 17:00 05/25/21 17:44 Divalproex Sodium (Depakote) 125 mg DAILY PO 05/12/21 09:00 05/12/21 13:43 DC 05/12/21 08:46 Divalproex Sodium (Depakote) 250 mg QHS PO 05/11/21 21:00 05/12/21 13:43 DC 05/11/21 20:29 Ferrous Sulfate (Feosol) 325 mg DAILY PO 05/12/21 09:00 05/25/21 08:33 Fluoxetine HCl (PROzac) 20 mg DAILY PO 05/12/21 09:00 05/25/21 08:33 Levothyroxine Sodium (Synthroid) 25 mcg DAILY06 PO 05/12/21 06:00 05/25/21 05:41 Metoprolol Tartrate (Lopressor) 25 mg BIDWMEALS PO 05/11/21 17:00 05/25/21 17:44 Olanzapine (ZyPREXA) 2.5 mg PRN BID PRN PO PSYCHOSIS 05/11/21 13:15 05/17/21 09:40 DC Olanzapine (ZyPREXA) 5 mg BID PO 05/11/21 21:00 05/12/21 13:43 DC 05/12/21 08:46 Docusate Sodium (Colace) 100 mg 1700 PO 05/11/21 17:00 05/25/21 17:45 Non-Formulary Medication (Ginkgo Biloba ) 120 mg BIDWMEALS PO 05/11/21 17:00 UNV Magnesium Oxide (Magnesium Oxide) 400 mg DAILY PO 05/12/21 09:00 05/25/21 08:33 Multivitamins/ Calcium (Thera-M Plus) 1 tab DAILY PO 05/12/21 09:00 05/25/21 08:34 Fish Oil (Fish Oil) 1,000 mg DAILY PO 05/12/21 09:00 05/23/21 11:15 DC 05/23/21 08:21 Pantoprazole Sodium (Protonix) 40 mg DAILYAC PO 05/12/21 07:30 05/25/21 08:33 Atorvastatin Calcium (Lipitor) 80 mg DAILY PO 05/12/21 09:00 05/21/21 08:39 DC 05/20/21 09:08 Multi-Ingredient Ointment (Analgesic [place]) 1 wendy PRN QID PRN TP MUSCLE PAIN 05/11/21 13:30 Al Hydroxide/Mg Hydroxide (Mylanta Plus Xs) 15 ml PRN AFTMEALHC PRN PO DYSPEPSIA 05/11/21 13:30 Magnesium Hydroxide (Milk Of Magnesia) 2,400 mg PRN QHS PRN PO CONSTIPATION 05/11/21 13:30 Influenza Virus Vaccine Quadrival (Flulaval Quad [id number] Syringe) 0.5 ml ONCE ONCE VAX IM 05/12/21 09:00 05/12/21 09:01 DC 05/12/21 08:49 Divalproex Sodium (Depakote) 375 mg QHS PO 05/12/21 21:00 05/17/21 16:53 DC 05/16/21 20:25 Divalproex Sodium (Depakote) 250 mg DAILY PO 05/13/21 09:00 05/21/21 20:06 DC 05/21/21 08:55 Olanzapine (ZyPREXA) 7.5 mg BID PO 05/12/21 21:00 05/19/21 18:31 DC 05/19/21 11:11 Olanzapine (ZyPREXA) 2.5 mg PRN Q2HR PRN PO PSYCHOSIS 05/17/21 09:45 05/17/21 10:39 DC Lorazepam (Ativan) 1 mg PRN TID PRN PO ANXIETY / AGITATION 05/17/21 09:45 05/22/21 16:57 Olanzapine (ZyPREXA ZYDIS) 2.5 mg PRN Q2HRS PRN PO PSYCHOSIS 05/17/21 10:45 05/20/21 22:03 Divalproex Sodium (Depakote) 500 mg QHS PO 05/17/21 21:00 05/21/21 20:06 DC 05/20/21 20:12 Mirtazapine (Remeron) 7.5 mg QHS PO 05/18/21 21:00 05/20/21 21:43 DC 05/20/21 20:13 Olanzapine (ZyPREXA) 2.5 mg BID PO 05/19/21 21:00 05/22/21 20:16 DC 05/22/21 19:46 Risperidone (RisperDAL) 0.5 mg QHS PO 05/19/21 21:00 05/25/21 20:00 Mirtazapine (Remeron) 15 mg QHS PO 05/21/21 21:00 05/25/21 20:00 Atorvastatin Calcium (Lipitor) 80 mg HS PO 05/21/21 21:00 05/25/21 19:59 Melatonin (Melatonin) 3 mg QHS PO 05/21/21 21:00 05/25/21 20:00 Divalproex Sodium (Depakote Sprinkles) 250 mg DAILY PO 05/22/21 09:00 05/25/21 08:34 Divalproex Sodium (Depakote Sprinkles) 500 mg QHS PO 05/21/21 21:00 05/25/21 20:00 Olanzapine (ZyPREXA) 2.5 mg DAILY PO 05/23/21 09:00 05/23/21 18:11 DC 05/23/21 08:23 Risperidone (RisperDAL) 0.25 mg DAILY PO 05/24/21 09:00 05/25/21 08:34 I have reviewed the current psychotropics carefully including drug interactions. Risk benefit ratio favors no change other than as noted in my dictated progress note. Diagnosis: Problems: (1) Major neurocognitive disorder (2) Anxiety disorder, unspecified (3) Major depressive disorder with psychotic features (4) Dementia, vascular, with depression (5) Dementia, vascular, with delusions (6) Vascular dementia with behavior disturbance EDUARDO YBARRA MD May 25, 2021 22:01
[2021-05-26] MEDS: LEVOTHYROXINE 25 MCG TABLET. PO SCH (05:48)
[2021-05-26 06:32] VITALS: BP 134/67
[2021-05-26 07:25] LABS: BILIRUBIN,URINE NEG (NEG); CLARITY,URINE CLOUDY; COLOR,URINE AMBER; GLUCOSE,URINE NEG (NEG); NITRITE,URINE POS (NEG)
[2021-05-26 07:26] LABS: BACTERIA,URINE MANY /HPF (0-FEW); RBC,URINE 0 /HPF (0-2); SQUAMOUS EPITHELIAL CELL,UR OCC /LPF
[2021-05-26] MEDS: MAGNESIUM OXIDE 400 MG TABLET PO SCH (08:34)
[2021-05-26] MEDS: PANTOPRAZOLE 40 MG TABLET. PO SCH (08:34)
[2021-05-26] MEDS: MULTIVITAMIN with MINERAL TABLET. PO SCH (08:34)
[2021-05-26] MEDS: risperiDONE 0.25 MG TABLET. PO SCH (08:34)
[2021-05-26] MEDS: METOPROLOL TART IMMED RELEASE 25 MG TABLET. PO SCH ×2 (08:35→17:41)
[2021-05-26] MEDS: FERROUS SULFATE 325 MG TABLET. PO SCH (08:35)
[2021-05-26] MEDS: DIVALPROEX 125 MG CAP.SPRINK PO SCH ×2 (08:35→20:52)
[2021-05-26] MEDS: cloNIDine HCL 0.1 MG TABLET PO SCH ×2 (08:35→17:39)
[2021-05-26] MEDS: ASCORBIC ACID 1,000 MG TABLET PO SCH (08:35)
[2021-05-26 16:24] VITALS: BP 106/43
[2021-05-26] MEDS: DOCUSATE SODIUM 100 MG CAPSULE PO SCH (17:40)
[2021-05-26] MEDS: ATORVASTATIN CALCIUM 20 MG TABLET PO SCH (20:51)
[2021-05-26] MEDS: MELATONIN 3 MG TABLET PO SCH (20:52)
[2021-05-26] MEDS: risperiDONE 0.5 MG TABLET. PO SCH (20:52)
[2021-05-26] MEDS: MIRTAZAPINE 15 MG TABLET PO SCH (20:52)
--- NOTE | 2021-05-26 22:00 | PDOC ---
Exam Note: Sam Note: Please also refer to the separate dictated note~for this date of service dictated separately.~Patient seen individually. Discussed the patient with Nursing staff reviewed the chart.~Reviewed interim history and current functioning. Reviewed vital signs,~Labs/ Radiology~and current medications noted below. Continue current treatment with the changes noted in the dictated addendum note Assessment: Vital Signs/I&O: Vital Signs Date Time Temp Pulse Resp B/P (MAP) Pulse Ox O2 Delivery O2 Flow Rate FiO2 05/26/21 17:41 59 106/43 05/26/21 16:24 97.5 18 96 05/25/21 16:53 Room Air I & O 05/25/21 05/25/21 05/26/21 14:59 22:59 06:59 Intake Total 480 ml 120 ml Balance 480 ml 120 ml Labs: Laboratory Tests Test 05/26/21 06:00 Urine Collection Type Void Urine Color Sandra Urine Clarity Cloudy Urine pH 7.0 Urine Specific [place] 1.020 Urine Protein Neg (NEG-TRACE) Urine Glucose (UA) Neg mg/dL (NEG) Urine Ketones (Stick) 15 mg/dL (NEG) Urine Blood Neg (NEG) Urine Nitrite Pos (NEG) Urine Bilirubin Neg (NEG) Urine Urobilinogen Dipstick 1.0 mg/dL (0.2 mg/dL) Urine Leukocyte Esterase Trace (NEG) Urine RBC 0 /HPF (0-2) Urine WBC 5-10 /HPF (0-4) Urine Squamous Epithelial Cells Occ /LPF Urine Bacteria Many /HPF (0-FEW) Current Medications: Meds: Laboratory Tests Test 05/26/21 06:00 Urine Collection Type Void Urine Color Sandra Urine Clarity Cloudy Urine pH 7.0 Urine Specific [place] 1.020 Urine Protein Neg Urine Glucose (UA) Neg mg/dL Urine Ketones (Stick) 15 mg/dL Urine Blood Neg Urine Nitrite Pos Urine Bilirubin Neg Urine Urobilinogen Dipstick 1.0 mg/dL Urine Leukocyte Esterase Trace Urine RBC 0 /HPF Urine WBC 5-10 /HPF Urine Squamous Epithelial Cells Occ /LPF Urine Bacteria Many /HPF Current Medications Medications (Trade) Dose Ordered Sig/Jordan Route PRN Reason Start Time Stop Time Status Last Admin Dose Admin Acetaminophen (Tylenol) 650 mg PRN Q4HRS PRN PO PAIN 05/11/21 13:15 05/16/21 13:53 Alprazolam (Xanax) 0.5 mg PRN Q4HRS PRN PO ANXIETY / AGITATION 05/11/21 13:15 05/17/21 09:41 DC 05/14/21 23:06 Alprazolam (Xanax) 0.5 mg QHS PO 05/11/21 21:00 05/12/21 13:43 DC 05/11/21 20:27 Ascorbic Acid (Vitamin C) 1,000 mg DAILY PO 05/12/21 09:00 05/26/21 08:35 Bupropion HCl (Wellbutrin Xl) 150 mg QODAY PO 05/12/21 09:00 05/16/21 09:01 DC 05/16/21 08:24 Clonidine HCl (Catapres) 0.1 mg BIDWMEALS PO 05/11/21 17:00 05/26/21 17:39 Divalproex Sodium (Depakote) 125 mg DAILY PO 05/12/21 09:00 05/12/21 13:43 DC 05/12/21 08:46 Divalproex Sodium (Depakote) 250 mg QHS PO 05/11/21 21:00 05/12/21 13:43 DC 05/11/21 20:29 Ferrous Sulfate (Feosol) 325 mg DAILY PO 05/12/21 09:00 05/26/21 08:35 Fluoxetine HCl (PROzac) 20 mg DAILY PO 05/12/21 09:00 05/26/21 08:34 Levothyroxine Sodium (Synthroid) 25 mcg DAILY06 PO 05/12/21 06:00 05/26/21 05:48 Metoprolol Tartrate (Lopressor) 25 mg BIDWMEALS PO 05/11/21 17:00 05/26/21 17:41 Olanzapine (ZyPREXA) 2.5 mg PRN BID PRN PO PSYCHOSIS 05/11/21 13:15 05/17/21 09:40 DC Olanzapine (ZyPREXA) 5 mg BID PO 05/11/21 21:00 05/12/21 13:43 DC 05/12/21 08:46 Docusate Sodium (Colace) 100 mg 1700 PO 05/11/21 17:00 05/26/21 17:40 Non-Formulary Medication (Ginkgo Biloba ) 120 mg BIDWMEALS PO 05/11/21 17:00 UNV Magnesium Oxide (Magnesium Oxide) 400 mg DAILY PO 05/12/21 09:00 05/26/21 08:34 Multivitamins/ Calcium (Thera-M Plus) 1 tab DAILY PO 05/12/21 09:00 05/26/21 08:34 Fish Oil (Fish Oil) 1,000 mg DAILY PO 05/12/21 09:00 05/23/21 11:15 DC 05/23/21 08:21 Pantoprazole Sodium (Protonix) 40 mg DAILYAC PO 05/12/21 07:30 05/26/21 08:34 Atorvastatin Calcium (Lipitor) 80 mg DAILY PO 05/12/21 09:00 05/21/21 08:39 DC 05/20/21 09:08 Multi-Ingredient Ointment (Analgesic [place]) 1 wendy PRN QID PRN TP MUSCLE PAIN 05/11/21 13:30 Al Hydroxide/Mg Hydroxide (Mylanta Plus Xs) 15 ml PRN AFTMEALHC PRN PO DYSPEPSIA 05/11/21 13:30 Magnesium Hydroxide (Milk Of Magnesia) 2,400 mg PRN QHS PRN PO CONSTIPATION 05/11/21 13:30 Influenza Virus Vaccine Quadrival (Flulaval Quad [id number] Syringe) 0.5 ml ONCE ONCE VAX IM 05/12/21 09:00 05/12/21 09:01 DC 05/12/21 08:49 Divalproex Sodium (Depakote) 375 mg QHS PO 05/12/21 21:00 05/17/21 16:53 DC 05/16/21 20:25 Divalproex Sodium (Depakote) 250 mg DAILY PO 05/13/21 09:00 05/21/21 20:06 DC 05/21/21 08:55 Olanzapine (ZyPREXA) 7.5 mg BID PO 05/12/21 21:00 05/19/21 18:31 DC 05/19/21 11:11 Olanzapine (ZyPREXA) 2.5 mg PRN Q2HR PRN PO PSYCHOSIS 05/17/21 09:45 05/17/21 10:39 DC Lorazepam (Ativan) 1 mg PRN TID PRN PO ANXIETY / AGITATION 05/17/21 09:45 05/22/21 16:57 Olanzapine (ZyPREXA ZYDIS) 2.5 mg PRN Q2HRS PRN PO PSYCHOSIS 05/17/21 10:45 05/20/21 22:03 Divalproex Sodium (Depakote) 500 mg QHS PO 05/17/21 21:00 05/21/21 20:06 DC 05/20/21 20:12 Mirtazapine (Remeron) 7.5 mg QHS PO 05/18/21 21:00 05/20/21 21:43 DC 05/20/21 20:13 Olanzapine (ZyPREXA) 2.5 mg BID PO 05/19/21 21:00 05/22/21 20:16 DC 05/22/21 19:46 Risperidone (RisperDAL) 0.5 mg QHS PO 05/19/21 21:00 05/26/21 20:52 Mirtazapine (Remeron) 15 mg QHS PO 05/21/21 21:00 05/26/21 20:52 Atorvastatin Calcium (Lipitor) 80 mg HS PO 05/21/21 21:00 05/26/21 20:51 Melatonin (Melatonin) 3 mg QHS PO 05/21/21 21:00 05/26/21 20:52 Divalproex Sodium (Depakote Sprinkles) 250 mg DAILY PO 05/22/21 09:00 05/26/21 08:35 Divalproex Sodium (Depakote Sprinkles) 500 mg QHS PO 05/21/21 21:00 05/26/21 20:52 Olanzapine (ZyPREXA) 2.5 mg DAILY PO 05/23/21 09:00 05/23/21 18:11 DC 05/23/21 08:23 Risperidone (RisperDAL) 0.25 mg DAILY PO 05/24/21 09:00 05/26/21 08:34 I have reviewed the current psychotropics carefully including drug interactions. Risk benefit ratio favors no change other than as noted in my dictated progress note. Diagnosis: Problems: (1) Major neurocognitive disorder (2) Anxiety disorder, unspecified (3) Major depressive disorder with psychotic features (4) Hypoxic brain injury (5) Dementia, vascular, with depression (6) Dementia, vascular, with delusions (7) Vascular dementia with behavior disturbance EDUARDO YBARRA MD May 26, 2021 22:00
[2021-05-27] MEDS: LEVOTHYROXINE 25 MCG TABLET. PO SCH (05:01)
[2021-05-27 06:39] VITALS: BP 111/52
[2021-05-27] MEDS: METOPROLOL TART IMMED RELEASE 25 MG TABLET. PO SCH ×2 (08:00→17:28)
[2021-05-27] MEDS: DIVALPROEX 125 MG CAP.SPRINK PO SCH ×2 (08:35→20:55)
[2021-05-27] MEDS: FERROUS SULFATE 325 MG TABLET. PO SCH (08:35)
[2021-05-27] MEDS: MULTIVITAMIN with MINERAL TABLET. PO SCH (08:38)
[2021-05-27] MEDS: cloNIDine HCL 0.1 MG TABLET PO SCH ×2 (08:38→17:28)
[2021-05-27] MEDS: PANTOPRAZOLE 40 MG TABLET. PO SCH (08:38)
[2021-05-27] MEDS: MAGNESIUM OXIDE 400 MG TABLET PO SCH (08:38)
[2021-05-27] MEDS: risperiDONE 0.25 MG TABLET. PO SCH (08:38)
[2021-05-27] MEDS: ASCORBIC ACID 1,000 MG TABLET PO SCH (08:38)
[2021-05-27 15:45] VITALS: BP 119/72
[2021-05-27] MEDS: DOCUSATE SODIUM 100 MG CAPSULE PO SCH (17:28)
[2021-05-27] MEDS: MELATONIN 3 MG TABLET PO SCH (20:54)
[2021-05-27] MEDS: risperiDONE 0.5 MG TABLET. PO SCH (20:54)
[2021-05-27] MEDS: MIRTAZAPINE 15 MG TABLET PO SCH (20:54)
[2021-05-27] MEDS: ATORVASTATIN CALCIUM 20 MG TABLET PO SCH (20:55)
--- NOTE | 2021-05-27 22:00 | PDOC ---
Exam Note: Sam Note: Please also refer to the separate dictated note~for this date of service dictated separately.~Patient seen individually. Discussed the patient with Nursing staff reviewed the chart.~Reviewed interim history and current functioning. Reviewed vital signs,~Labs/ Radiology~and current medications noted below. Continue current treatment with the changes noted in the dictated addendum note Assessment: Vital Signs/I&O: Vital Signs Date Time Temp Pulse Resp B/P (MAP) Pulse Ox O2 Delivery O2 Flow Rate FiO2 05/27/21 17:28 73 119/72 05/27/21 15:45 97.2 16 97 05/25/21 16:53 Room Air I & O 05/26/21 05/26/21 05/27/21 15:00 23:00 07:00 Intake Total 610 ml 360 ml Balance 610 ml 360 ml Current Medications: Meds: Current Medications Medications (Trade) Dose Ordered Sig/Jordan Route PRN Reason Start Time Stop Time Status Last Admin Dose Admin Acetaminophen (Tylenol) 650 mg PRN Q4HRS PRN PO PAIN 05/11/21 13:15 05/16/21 13:53 Alprazolam (Xanax) 0.5 mg PRN Q4HRS PRN PO ANXIETY / AGITATION 05/11/21 13:15 05/17/21 09:41 DC 05/14/21 23:06 Alprazolam (Xanax) 0.5 mg QHS PO 05/11/21 21:00 05/12/21 13:43 DC 05/11/21 20:27 Ascorbic Acid (Vitamin C) 1,000 mg DAILY PO 05/12/21 09:00 05/27/21 08:38 Bupropion HCl (Wellbutrin Xl) 150 mg QODAY PO 05/12/21 09:00 05/16/21 09:01 DC 05/16/21 08:24 Clonidine HCl (Catapres) 0.1 mg BIDWMEALS PO 05/11/21 17:00 05/27/21 17:28 Divalproex Sodium (Depakote) 125 mg DAILY PO 05/12/21 09:00 05/12/21 13:43 DC 05/12/21 08:46 Divalproex Sodium (Depakote) 250 mg QHS PO 05/11/21 21:00 05/12/21 13:43 DC 05/11/21 20:29 Ferrous Sulfate (Feosol) 325 mg DAILY PO 05/12/21 09:00 05/27/21 08:35 Fluoxetine HCl (PROzac) 20 mg DAILY PO 05/12/21 09:00 05/27/21 08:38 Levothyroxine Sodium (Synthroid) 25 mcg DAILY06 PO 05/12/21 06:00 05/27/21 05:01 Metoprolol Tartrate (Lopressor) 25 mg BIDWMEALS PO 05/11/21 17:00 05/27/21 17:28 Olanzapine (ZyPREXA) 2.5 mg PRN BID PRN PO PSYCHOSIS 05/11/21 13:15 05/17/21 09:40 DC Olanzapine (ZyPREXA) 5 mg BID PO 05/11/21 21:00 05/12/21 13:43 DC 05/12/21 08:46 Docusate Sodium (Colace) 100 mg 1700 PO 05/11/21 17:00 05/27/21 17:28 Non-Formulary Medication (Ginkgo Biloba ) 120 mg BIDWMEALS PO 05/11/21 17:00 UNV Magnesium Oxide (Magnesium Oxide) 400 mg DAILY PO 05/12/21 09:00 05/27/21 08:38 Multivitamins/ Calcium (Thera-M Plus) 1 tab DAILY PO 05/12/21 09:00 05/27/21 08:38 Fish Oil (Fish Oil) 1,000 mg DAILY PO 05/12/21 09:00 05/23/21 11:15 DC 05/23/21 08:21 Pantoprazole Sodium (Protonix) 40 mg DAILYAC PO 05/12/21 07:30 05/27/21 08:38 Atorvastatin Calcium (Lipitor) 80 mg DAILY PO 05/12/21 09:00 05/21/21 08:39 DC 05/20/21 09:08 Multi-Ingredient Ointment (Analgesic [place]) 1 wendy PRN QID PRN TP MUSCLE PAIN 05/11/21 13:30 Al Hydroxide/Mg Hydroxide (Mylanta Plus Xs) 15 ml PRN AFTMEALHC PRN PO DYSPEPSIA 05/11/21 13:30 Magnesium Hydroxide (Milk Of Magnesia) 2,400 mg PRN QHS PRN PO CONSTIPATION 05/11/21 13:30 Influenza Virus Vaccine Quadrival (Flulaval Quad [id number] Syringe) 0.5 ml ONCE ONCE VAX IM 05/12/21 09:00 05/12/21 09:01 DC 05/12/21 08:49 Divalproex Sodium (Depakote) 375 mg QHS PO 05/12/21 21:00 05/17/21 16:53 DC 05/16/21 20:25 Divalproex Sodium (Depakote) 250 mg DAILY PO 05/13/21 09:00 05/21/21 20:06 DC 05/21/21 08:55 Olanzapine (ZyPREXA) 7.5 mg BID PO 05/12/21 21:00 05/19/21 18:31 DC 05/19/21 11:11 Olanzapine (ZyPREXA) 2.5 mg PRN Q2HR PRN PO PSYCHOSIS 05/17/21 09:45 05/17/21 10:39 DC Lorazepam (Ativan) 1 mg PRN TID PRN PO ANXIETY / AGITATION 05/17/21 09:45 05/22/21 16:57 Olanzapine (ZyPREXA ZYDIS) 2.5 mg PRN Q2HRS PRN PO PSYCHOSIS 05/17/21 10:45 05/20/21 22:03 Divalproex Sodium (Depakote) 500 mg QHS PO 05/17/21 21:00 05/21/21 20:06 DC 05/20/21 20:12 Mirtazapine (Remeron) 7.5 mg QHS PO 05/18/21 21:00 05/20/21 21:43 DC 05/20/21 20:13 Olanzapine (ZyPREXA) 2.5 mg BID PO 05/19/21 21:00 05/22/21 20:16 DC 05/22/21 19:46 Risperidone (RisperDAL) 0.5 mg QHS PO 05/19/21 21:00 05/27/21 20:54 Mirtazapine (Remeron) 15 mg QHS PO 05/21/21 21:00 05/27/21 20:54 Atorvastatin Calcium (Lipitor) 80 mg HS PO 05/21/21 21:00 05/27/21 20:55 Melatonin (Melatonin) 3 mg QHS PO 05/21/21 21:00 05/27/21 20:54 Divalproex Sodium (Depakote Sprinkles) 250 mg DAILY PO 05/22/21 09:00 05/27/21 08:35 Divalproex Sodium (Depakote Sprinkles) 500 mg QHS PO 05/21/21 21:00 05/27/21 20:55 Olanzapine (ZyPREXA) 2.5 mg DAILY PO 05/23/21 09:00 05/23/21 18:11 DC 05/23/21 08:23 Risperidone (RisperDAL) 0.25 mg DAILY PO 05/24/21 09:00 05/27/21 08:38 I have reviewed the current psychotropics carefully including drug interactions. Risk benefit ratio favors no change other than as noted in my dictated progress note. Diagnosis: Problems: (1) Major neurocognitive disorder (2) Anxiety disorder, unspecified (3) Major depressive disorder with psychotic features (4) Dementia, vascular, with depression (5) Dementia, vascular, with delusions (6) Vascular dementia with behavior disturbance EDUARDO YBARRA MD May 27, 2021 22:00
[2021-05-28] MEDS: LEVOTHYROXINE 25 MCG TABLET. PO SCH (05:27)
[2021-05-28 06:45] VITALS: BP 144/69
--- NOTE | 2021-05-28 08:36 | PDOC ---
Exam Note: Sam Note: This note is a late entry for 05/25/2021 covers elements not covered in my initial note. Subjective: The patient was reviewed at treatment team meeting individually in the morning on 05/25/2021 with Laverne Deutsch, Carey Rivera, and Larissa (healthcare social worker), Betina, activity therapy and Aubrie PATINO, discussed and reviewed the chart. Reviewed the patients history, diagnoses, overall functioning on the unit, current psychotropics and risk-benefit ratio. The patient slept 6-1/2 hours previous night. Appetite 50%. She is attending groups, somewhat social. We will be transitioning to a different [facility] at discharge. Also discussed with Vladimir PATINO in the evening. She is confused about her medications but cognitively a little more intact, less psychotic. Review of Systems: No CV, , pulmonary, eye, ENT system symptoms on review. Reliability poor. Mental Status Exam: The patient is oriented to herself. Insight and judgment, recent and remote memory, attention and concentration, fund of knowledge is poor consistent with her diagnoses. Laboratory Data: Reviewed. Impression: Major neurocognitive disorder Alzheimer, vascular with delusion, depression, behavioral disturbance. Anxiety disorder, unspecified. Impulse control disorder, unspecified. Plan: Continue current psychotropics. Assessment: Vital Signs/I&O: Vital Signs Date Time Temp Pulse Resp B/P (MAP) Pulse Ox O2 Delivery O2 Flow Rate FiO2 05/28/21 06:45 97.2 51 16 144/69 (94) 91 05/25/21 16:53 Room Air I & O 05/27/21 05/27/21 05/28/21 15:00 23:00 07:00 Intake Total 600 ml 480 ml Balance 600 ml 480 ml Current Medications: Meds: Current Medications Medications (Trade) Dose Ordered Sig/Jordan Route PRN Reason Start Time Stop Time Status Last Admin Dose Admin Acetaminophen (Tylenol) 650 mg PRN Q4HRS PRN PO PAIN 05/11/21 13:15 05/16/21 13:53 Alprazolam (Xanax) 0.5 mg PRN Q4HRS PRN PO ANXIETY / AGITATION 05/11/21 13:15 05/17/21 09:41 DC 05/14/21 23:06 Alprazolam (Xanax) 0.5 mg QHS PO 05/11/21 21:00 05/12/21 13:43 DC 05/11/21 20:27 Ascorbic Acid (Vitamin C) 1,000 mg DAILY PO 05/12/21 09:00 05/27/21 08:38 Bupropion HCl (Wellbutrin Xl) 150 mg QODAY PO 05/12/21 09:00 05/16/21 09:01 DC 05/16/21 08:24 Clonidine HCl (Catapres) 0.1 mg BIDWMEALS PO 05/11/21 17:00 05/27/21 17:28 Divalproex Sodium (Depakote) 125 mg DAILY PO 05/12/21 09:00 05/12/21 13:43 DC 05/12/21 08:46 Divalproex Sodium (Depakote) 250 mg QHS PO 05/11/21 21:00 05/12/21 13:43 DC 05/11/21 20:29 Ferrous Sulfate (Feosol) 325 mg DAILY PO 05/12/21 09:00 05/27/21 08:35 Fluoxetine HCl (PROzac) 20 mg DAILY PO 05/12/21 09:00 05/27/21 08:38 Levothyroxine Sodium (Synthroid) 25 mcg DAILY06 PO 05/12/21 06:00 05/28/21 05:27 Metoprolol Tartrate (Lopressor) 25 mg BIDWMEALS PO 05/11/21 17:00 05/27/21 17:28 Olanzapine (ZyPREXA) 2.5 mg PRN BID PRN PO PSYCHOSIS 05/11/21 13:15 05/17/21 09:40 DC Olanzapine (ZyPREXA) 5 mg BID PO 05/11/21 21:00 05/12/21 13:43 DC 05/12/21 08:46 Docusate Sodium (Colace) 100 mg 1700 PO 05/11/21 17:00 05/27/21 17:28 Non-Formulary Medication (Ginkgo Biloba ) 120 mg BIDWMEALS PO 05/11/21 17:00 UNV Magnesium Oxide (Magnesium Oxide) 400 mg DAILY PO 05/12/21 09:00 05/27/21 08:38 Multivitamins/ Calcium (Thera-M Plus) 1 tab DAILY PO 05/12/21 09:00 05/27/21 08:38 Fish Oil (Fish Oil) 1,000 mg DAILY PO 05/12/21 09:00 05/23/21 11:15 DC 05/23/21 08:21 Pantoprazole Sodium (Protonix) 40 mg DAILYAC PO 05/12/21 07:30 05/27/21 08:38 Atorvastatin Calcium (Lipitor) 80 mg DAILY PO 05/12/21 09:00 05/21/21 08:39 DC 05/20/21 09:08 Multi-Ingredient Ointment (Analgesic [place]) 1 wendy PRN QID PRN TP MUSCLE PAIN 05/11/21 13:30 Al Hydroxide/Mg Hydroxide (Mylanta Plus Xs) 15 ml PRN AFTMEALHC PRN PO DYSPEPSIA 05/11/21 13:30 Magnesium Hydroxide (Milk Of Magnesia) 2,400 mg PRN QHS PRN PO CONSTIPATION 05/11/21 13:30 Influenza Virus Vaccine Quadrival (Flulaval Quad [id number] Syringe) 0.5 ml ONCE ONCE VAX IM 05/12/21 09:00 05/12/21 09:01 DC 05/12/21 08:49 Divalproex Sodium (Depakote) 375 mg QHS PO 05/12/21 21:00 05/17/21 16:53 DC 05/16/21 20:25 Divalproex Sodium (Depakote) 250 mg DAILY PO 05/13/21 09:00 05/21/21 20:06 DC 05/21/21 08:55 Olanzapine (ZyPREXA) 7.5 mg BID PO 05/12/21 21:00 05/19/21 18:31 DC 05/19/21 11:11 Olanzapine (ZyPREXA) 2.5 mg PRN Q2HR PRN PO PSYCHOSIS 05/17/21 09:45 05/17/21 10:39 DC Lorazepam (Ativan) 1 mg PRN TID PRN PO ANXIETY / AGITATION 05/17/21 09:45 05/22/21 16:57 Olanzapine (ZyPREXA ZYDIS) 2.5 mg PRN Q2HRS PRN PO PSYCHOSIS 05/17/21 10:45 05/27/21 23:01 Divalproex Sodium (Depakote) 500 mg QHS PO 05/17/21 21:00 05/21/21 20:06 DC 05/20/21 20:12 Mirtazapine (Remeron) 7.5 mg QHS PO 05/18/21 21:00 05/20/21 21:43 DC 05/20/21 20:13 Olanzapine (ZyPREXA) 2.5 mg BID PO 05/19/21 21:00 05/22/21 20:16 DC 05/22/21 19:46 Risperidone (RisperDAL) 0.5 mg QHS PO 05/19/21 21:00 05/27/21 20:54 Mirtazapine (Remeron) 15 mg QHS PO 05/21/21 21:00 05/27/21 20:54 Atorvastatin Calcium (Lipitor) 80 mg HS PO 05/21/21 21:00 05/27/21 20:55 Melatonin (Melatonin) 3 mg QHS PO 05/21/21 21:00 05/27/21 20:54 Divalproex Sodium (Depakote Sprinkles) 250 mg DAILY PO 05/22/21 09:00 05/27/21 08:35 Divalproex Sodium (Depakote Sprinkles) 500 mg QHS PO 05/21/21 21:00 05/27/21 20:55 Olanzapine (ZyPREXA) 2.5 mg DAILY PO 05/23/21 09:00 05/23/21 18:11 DC 05/23/21 08:23 Risperidone (RisperDAL) 0.25 mg DAILY PO 05/24/21 09:00 05/27/21 08:38 I have reviewed the current psychotropics carefully including drug interactions. Risk benefit ratio favors no change other than as noted in my dictated progress note. Diagnosis: Problems: (1) Major neurocognitive disorder (2) Anxiety disorder, unspecified (3) Major depressive disorder with psychotic features (4) Dementia, vascular, with depression (5) Dementia, vascular, with delusions (6) Vascular dementia with behavior disturbance EDUARDO BYARRA MD May 28, 2021 08:36
[2021-05-28] MEDS: METOPROLOL TART IMMED RELEASE 25 MG TABLET. PO SCH ×2 (08:56→17:00)
[2021-05-28] MEDS: cloNIDine HCL 0.1 MG TABLET PO SCH ×2 (08:56→17:00)
[2021-05-28] MEDS: PANTOPRAZOLE 40 MG TABLET. PO SCH (08:56)
[2021-05-28] MEDS: FERROUS SULFATE 325 MG TABLET. PO SCH (08:56)
[2021-05-28] MEDS: MAGNESIUM OXIDE 400 MG TABLET PO SCH (08:57)
[2021-05-28] MEDS: risperiDONE 0.25 MG TABLET. PO SCH (08:57)
[2021-05-28] MEDS: ASCORBIC ACID 1,000 MG TABLET PO SCH (08:57)
[2021-05-28] MEDS: DIVALPROEX 125 MG CAP.SPRINK PO SCH ×2 (08:57→20:48)
[2021-05-28] MEDS: MULTIVITAMIN with MINERAL TABLET. PO SCH (08:57)
--- NOTE | 2021-05-28 09:16 | PDOC ---
Exam Note: Sam Note: This note is a late entry for 05/26/2021 covers elements not covered in my initial note. Subjective: The patient was seen individually in the evening of 05/26/2021 with Noy PATINO, discussed and reviewed the chart. The patient slept 9-1/4 hours previous night. She is doing better, less confused, more social. UA is pending. Review of Systems: No CV, , pulmonary, eye, ENT system symptoms on review. Reliability poor. Mental Status Exam: The patient is oriented to herself. Insight and judgment, recent and remote memory, attention and concentration, fund of knowledge is poor consistent with her diagnoses. Laboratory Data: Reviewed. Impression: Major neurocognitive disorder Alzheimer, vascular with delusion, depression, behavioral disturbance. Anxiety disorder, unspecified. Impulse control disorder, unspecified. Plan: Continue current psychotropics. Assessment: Vital Signs/I&O: Vital Signs Date Time Temp Pulse Resp B/P (MAP) Pulse Ox O2 Delivery O2 Flow Rate FiO2 05/28/21 08:56 51 144/69 05/28/21 06:45 97.2 16 91 05/25/21 16:53 Room Air I & O 05/27/21 05/27/21 05/28/21 15:00 23:00 07:00 Intake Total 600 ml 480 ml Balance 600 ml 480 ml Current Medications: Meds: Current Medications Medications (Trade) Dose Ordered Sig/Jordan Route PRN Reason Start Time Stop Time Status Last Admin Dose Admin Acetaminophen (Tylenol) 650 mg PRN Q4HRS PRN PO PAIN 05/11/21 13:15 05/16/21 13:53 Alprazolam (Xanax) 0.5 mg PRN Q4HRS PRN PO ANXIETY / AGITATION 05/11/21 13:15 05/17/21 09:41 DC 05/14/21 23:06 Alprazolam (Xanax) 0.5 mg QHS PO 05/11/21 21:00 05/12/21 13:43 DC 05/11/21 20:27 Ascorbic Acid (Vitamin C) 1,000 mg DAILY PO 05/12/21 09:00 05/28/21 08:57 Bupropion HCl (Wellbutrin Xl) 150 mg QODAY PO 05/12/21 09:00 05/16/21 09:01 DC 05/16/21 08:24 Clonidine HCl (Catapres) 0.1 mg BIDWMEALS PO 05/11/21 17:00 05/28/21 08:56 Divalproex Sodium (Depakote) 125 mg DAILY PO 05/12/21 09:00 05/12/21 13:43 DC 05/12/21 08:46 Divalproex Sodium (Depakote) 250 mg QHS PO 05/11/21 21:00 05/12/21 13:43 DC 05/11/21 20:29 Ferrous Sulfate (Feosol) 325 mg DAILY PO 05/12/21 09:00 05/28/21 08:56 Fluoxetine HCl (PROzac) 20 mg DAILY PO 05/12/21 09:00 05/28/21 08:56 Levothyroxine Sodium (Synthroid) 25 mcg DAILY06 PO 05/12/21 06:00 05/28/21 05:27 Metoprolol Tartrate (Lopressor) 25 mg BIDWMEALS PO 05/11/21 17:00 05/28/21 08:56 Olanzapine (ZyPREXA) 2.5 mg PRN BID PRN PO PSYCHOSIS 05/11/21 13:15 05/17/21 09:40 DC Olanzapine (ZyPREXA) 5 mg BID PO 05/11/21 21:00 05/12/21 13:43 DC 05/12/21 08:46 Docusate Sodium (Colace) 100 mg 1700 PO 05/11/21 17:00 05/27/21 17:28 Non-Formulary Medication (Ginkgo Biloba ) 120 mg BIDWMEALS PO 05/11/21 17:00 UNV Magnesium Oxide (Magnesium Oxide) 400 mg DAILY PO 05/12/21 09:00 05/28/21 08:57 Multivitamins/ Calcium (Thera-M Plus) 1 tab DAILY PO 05/12/21 09:00 05/28/21 08:57 Fish Oil (Fish Oil) 1,000 mg DAILY PO 05/12/21 09:00 05/23/21 11:15 DC 05/23/21 08:21 Pantoprazole Sodium (Protonix) 40 mg DAILYAC PO 05/12/21 07:30 05/28/21 08:56 Atorvastatin Calcium (Lipitor) 80 mg DAILY PO 05/12/21 09:00 05/21/21 08:39 DC 05/20/21 09:08 Multi-Ingredient Ointment (Analgesic [place]) 1 wendy PRN QID PRN TP MUSCLE PAIN 05/11/21 13:30 Al Hydroxide/Mg Hydroxide (Mylanta Plus Xs) 15 ml PRN AFTMEALHC PRN PO DYSPEPSIA 05/11/21 13:30 Magnesium Hydroxide (Milk Of Magnesia) 2,400 mg PRN QHS PRN PO CONSTIPATION 05/11/21 13:30 Influenza Virus Vaccine Quadrival (Flulaval Quad [id number] Syringe) 0.5 ml ONCE ONCE VAX IM 05/12/21 09:00 05/12/21 09:01 DC 05/12/21 08:49 Divalproex Sodium (Depakote) 375 mg QHS PO 05/12/21 21:00 05/17/21 16:53 DC 05/16/21 20:25 Divalproex Sodium (Depakote) 250 mg DAILY PO 05/13/21 09:00 05/21/21 20:06 DC 05/21/21 08:55 Olanzapine (ZyPREXA) 7.5 mg BID PO 05/12/21 21:00 05/19/21 18:31 DC 05/19/21 11:11 Olanzapine (ZyPREXA) 2.5 mg PRN Q2HR PRN PO PSYCHOSIS 05/17/21 09:45 05/17/21 10:39 DC Lorazepam (Ativan) 1 mg PRN TID PRN PO ANXIETY / AGITATION 05/17/21 09:45 05/22/21 16:57 Olanzapine (ZyPREXA ZYDIS) 2.5 mg PRN Q2HRS PRN PO PSYCHOSIS 05/17/21 10:45 05/27/21 23:01 Divalproex Sodium (Depakote) 500 mg QHS PO 05/17/21 21:00 05/21/21 20:06 DC 05/20/21 20:12 Mirtazapine (Remeron) 7.5 mg QHS PO 05/18/21 21:00 05/20/21 21:43 DC 05/20/21 20:13 Olanzapine (ZyPREXA) 2.5 mg BID PO 05/19/21 21:00 05/22/21 20:16 DC 05/22/21 19:46 Risperidone (RisperDAL) 0.5 mg QHS PO 05/19/21 21:00 05/27/21 20:54 Mirtazapine (Remeron) 15 mg QHS PO 05/21/21 21:00 05/27/21 20:54 Atorvastatin Calcium (Lipitor) 80 mg HS PO 05/21/21 21:00 05/27/21 20:55 Melatonin (Melatonin) 3 mg QHS PO 05/21/21 21:00 05/27/21 20:54 Divalproex Sodium (Depakote Sprinkles) 250 mg DAILY PO 05/22/21 09:00 05/28/21 08:57 Divalproex Sodium (Depakote Sprinkles) 500 mg QHS PO 05/21/21 21:00 05/27/21 20:55 Olanzapine (ZyPREXA) 2.5 mg DAILY PO 05/23/21 09:00 05/23/21 18:11 DC 05/23/21 08:23 Risperidone (RisperDAL) 0.25 mg DAILY PO 05/24/21 09:00 05/28/21 08:57 I have reviewed the current psychotropics carefully including drug interactions. Risk benefit ratio favors no change other than as noted in my dictated progress note. Diagnosis: Problems: (1) Major neurocognitive disorder (2) Anxiety disorder, unspecified (3) Major depressive disorder with psychotic features (4) Dementia, vascular, with depression (5) Dementia, vascular, with delusions (6) Vascular dementia with behavior disturbance EDUARDO YBARRA MD May 28, 2021 09:16
[2021-05-28 15:58] VITALS: BP 99/63
[2021-05-28] MEDS: DOCUSATE SODIUM 100 MG CAPSULE PO SCH (17:38)
[2021-05-28] MEDS: MELATONIN 3 MG TABLET PO SCH (20:48)
[2021-05-28] MEDS: risperiDONE 0.5 MG TABLET. PO SCH (20:48)
[2021-05-28] MEDS: MIRTAZAPINE 15 MG TABLET PO SCH (20:48)
[2021-05-28] MEDS: ATORVASTATIN CALCIUM 20 MG TABLET PO SCH (20:48)
--- NOTE | 2021-05-28 22:06 | PDOC ---
Exam Note: Sam Note: Please also refer to the separate dictated note~for this date of service dictated separately.~Patient seen individually. Discussed the patient with Nursing staff reviewed the chart.~Reviewed interim history and current functioning. Reviewed vital signs,~Labs/ Radiology~and current medications noted below. Continue current treatment with the changes noted in the dictated addendum note Assessment: Vital Signs/I&O: Vital Signs Date Time Temp Pulse Resp B/P (MAP) Pulse Ox O2 Delivery O2 Flow Rate FiO2 05/28/21 17:00 52 99/63 05/28/21 15:58 98.2 20 99 05/25/21 16:53 Room Air I & O 05/27/21 05/27/21 05/28/21 15:00 23:00 07:00 Intake Total 600 ml 480 ml Balance 600 ml 480 ml Current Medications: Meds: Current Medications Medications (Trade) Dose Ordered Sig/Jordan Route PRN Reason Start Time Stop Time Status Last Admin Dose Admin Acetaminophen (Tylenol) 650 mg PRN Q4HRS PRN PO PAIN 05/11/21 13:15 05/16/21 13:53 Alprazolam (Xanax) 0.5 mg PRN Q4HRS PRN PO ANXIETY / AGITATION 05/11/21 13:15 05/17/21 09:41 DC 05/14/21 23:06 Alprazolam (Xanax) 0.5 mg QHS PO 05/11/21 21:00 05/12/21 13:43 DC 05/11/21 20:27 Ascorbic Acid (Vitamin C) 1,000 mg DAILY PO 05/12/21 09:00 05/28/21 08:57 Bupropion HCl (Wellbutrin Xl) 150 mg QODAY PO 05/12/21 09:00 05/16/21 09:01 DC 05/16/21 08:24 Clonidine HCl (Catapres) 0.1 mg BIDWMEALS PO 05/11/21 17:00 05/28/21 08:56 Divalproex Sodium (Depakote) 125 mg DAILY PO 05/12/21 09:00 05/12/21 13:43 DC 05/12/21 08:46 Divalproex Sodium (Depakote) 250 mg QHS PO 05/11/21 21:00 05/12/21 13:43 DC 05/11/21 20:29 Ferrous Sulfate (Feosol) 325 mg DAILY PO 05/12/21 09:00 05/28/21 08:56 Fluoxetine HCl (PROzac) 20 mg DAILY PO 05/12/21 09:00 05/28/21 08:56 Levothyroxine Sodium (Synthroid) 25 mcg DAILY06 PO 05/12/21 06:00 05/28/21 05:27 Metoprolol Tartrate (Lopressor) 25 mg BIDWMEALS PO 05/11/21 17:00 05/28/21 08:56 Olanzapine (ZyPREXA) 2.5 mg PRN BID PRN PO PSYCHOSIS 05/11/21 13:15 05/17/21 09:40 DC Olanzapine (ZyPREXA) 5 mg BID PO 05/11/21 21:00 05/12/21 13:43 DC 05/12/21 08:46 Docusate Sodium (Colace) 100 mg 1700 PO 05/11/21 17:00 05/28/21 17:38 Non-Formulary Medication (Ginkgo Biloba ) 120 mg BIDWMEALS PO 05/11/21 17:00 UNV Magnesium Oxide (Magnesium Oxide) 400 mg DAILY PO 05/12/21 09:00 05/28/21 08:57 Multivitamins/ Calcium (Thera-M Plus) 1 tab DAILY PO 05/12/21 09:00 05/28/21 08:57 Fish Oil (Fish Oil) 1,000 mg DAILY PO 05/12/21 09:00 05/23/21 11:15 DC 05/23/21 08:21 Pantoprazole Sodium (Protonix) 40 mg DAILYAC PO 05/12/21 07:30 05/28/21 08:56 Atorvastatin Calcium (Lipitor) 80 mg DAILY PO 05/12/21 09:00 05/21/21 08:39 DC 05/20/21 09:08 Multi-Ingredient Ointment (Analgesic [place]) 1 wendy PRN QID PRN TP MUSCLE PAIN 05/11/21 13:30 Al Hydroxide/Mg Hydroxide (Mylanta Plus Xs) 15 ml PRN AFTMEALHC PRN PO DYSPEPSIA 05/11/21 13:30 Magnesium Hydroxide (Milk Of Magnesia) 2,400 mg PRN QHS PRN PO CONSTIPATION 05/11/21 13:30 Influenza Virus Vaccine Quadrival (Flulaval Quad [id number] Syringe) 0.5 ml ONCE ONCE VAX IM 05/12/21 09:00 05/12/21 09:01 DC 05/12/21 08:49 Divalproex Sodium (Depakote) 375 mg QHS PO 05/12/21 21:00 05/17/21 16:53 DC 05/16/21 20:25 Divalproex Sodium (Depakote) 250 mg DAILY PO 05/13/21 09:00 05/21/21 20:06 DC 05/21/21 08:55 Olanzapine (ZyPREXA) 7.5 mg BID PO 05/12/21 21:00 05/19/21 18:31 DC 05/19/21 11:11 Olanzapine (ZyPREXA) 2.5 mg PRN Q2HR PRN PO PSYCHOSIS 05/17/21 09:45 05/17/21 10:39 DC Lorazepam (Ativan) 1 mg PRN TID PRN PO ANXIETY / AGITATION 05/17/21 09:45 05/22/21 16:57 Olanzapine (ZyPREXA ZYDIS) 2.5 mg PRN Q2HRS PRN PO PSYCHOSIS 05/17/21 10:45 05/27/21 23:01 Divalproex Sodium (Depakote) 500 mg QHS PO 05/17/21 21:00 05/21/21 20:06 DC 05/20/21 20:12 Mirtazapine (Remeron) 7.5 mg QHS PO 05/18/21 21:00 05/20/21 21:43 DC 05/20/21 20:13 Olanzapine (ZyPREXA) 2.5 mg BID PO 05/19/21 21:00 05/22/21 20:16 DC 05/22/21 19:46 Risperidone (RisperDAL) 0.5 mg QHS PO 05/19/21 21:00 05/28/21 20:48 Mirtazapine (Remeron) 15 mg QHS PO 05/21/21 21:00 05/28/21 20:48 Atorvastatin Calcium (Lipitor) 80 mg HS PO 05/21/21 21:00 05/28/21 20:48 Melatonin (Melatonin) 3 mg QHS PO 05/21/21 21:00 05/28/21 20:48 Divalproex Sodium (Depakote Sprinkles) 250 mg DAILY PO 05/22/21 09:00 05/28/21 08:57 Divalproex Sodium (Depakote Sprinkles) 500 mg QHS PO 05/21/21 21:00 05/28/21 20:48 Olanzapine (ZyPREXA) 2.5 mg DAILY PO 05/23/21 09:00 05/23/21 18:11 DC 05/23/21 08:23 Risperidone (RisperDAL) 0.25 mg DAILY PO 05/24/21 09:00 05/28/21 08:57 I have reviewed the current psychotropics carefully including drug interactions. Risk benefit ratio favors no change other than as noted in my dictated progress note. Diagnosis: Problems: (1) Major neurocognitive disorder (2) Anxiety disorder, unspecified (3) Major depressive disorder with psychotic features (4) Dementia, vascular, with depression (5) Dementia, vascular, with delusions (6) Vascular dementia with behavior disturbance EDUARDO YBARRA MD May 28, 2021 22:06
[2021-05-29] MEDS: LEVOTHYROXINE 25 MCG TABLET. PO SCH (04:51)
[2021-05-29 05:37] VITALS: BP 148/71
--- NOTE | 2021-05-29 07:11 | PDOC ---
Exam Note: Sam Note: This note is a late entry for 05/27/2021 covers elements not covered in my initial note. Subjective: The patient was seen individually in the evening of 05/27/2021 with Aubrie PATINO, discussed and reviewed the chart. The patient slept 7 hours previous night. She remains confused, has been socialising more with another female patient. UA is negative. She seems less confused. She is less psychotic. Review of Systems: No CV, , pulmonary, eye, ENT system symptoms on review. Reliability poor. Mental Status Exam: The patient is oriented to herself. Insight and judgment, recent and remote memory, attention and concentration, fund of knowledge is poor consistent with her diagnoses. Laboratory Data: Reviewed. Impression: Major neurocognitive disorder Alzheimer, vascular with delusion, depression, behavioral disturbance. Anxiety disorder, unspecified. Impulse control disorder, unspecified. Plan: Continue current psychotropics. Assessment: Vital Signs/I&O: Vital Signs Date Time Temp Pulse Resp B/P (MAP) Pulse Ox O2 Delivery O2 Flow Rate FiO2 05/29/21 05:37 97.8 51 16 148/71 (96) 96 05/25/21 16:53 Room Air I & O 05/28/21 05/28/21 05/29/21 15:00 23:00 07:00 Intake Total 240 ml 480 ml Balance 240 ml 480 ml Current Medications: Meds: Current Medications Medications (Trade) Dose Ordered Sig/Jordan Route PRN Reason Start Time Stop Time Status Last Admin Dose Admin Acetaminophen (Tylenol) 650 mg PRN Q4HRS PRN PO PAIN 05/11/21 13:15 05/16/21 13:53 Alprazolam (Xanax) 0.5 mg PRN Q4HRS PRN PO ANXIETY / AGITATION 05/11/21 13:15 05/17/21 09:41 DC 05/14/21 23:06 Alprazolam (Xanax) 0.5 mg QHS PO 05/11/21 21:00 05/12/21 13:43 DC 05/11/21 20:27 Ascorbic Acid (Vitamin C) 1,000 mg DAILY PO 05/12/21 09:00 05/28/21 08:57 Bupropion HCl (Wellbutrin Xl) 150 mg QODAY PO 05/12/21 09:00 05/16/21 09:01 DC 05/16/21 08:24 Clonidine HCl (Catapres) 0.1 mg BIDWMEALS PO 05/11/21 17:00 05/28/21 08:56 Divalproex Sodium (Depakote) 125 mg DAILY PO 05/12/21 09:00 05/12/21 13:43 DC 05/12/21 08:46 Divalproex Sodium (Depakote) 250 mg QHS PO 05/11/21 21:00 05/12/21 13:43 DC 05/11/21 20:29 Ferrous Sulfate (Feosol) 325 mg DAILY PO 05/12/21 09:00 05/28/21 08:56 Fluoxetine HCl (PROzac) 20 mg DAILY PO 05/12/21 09:00 05/28/21 08:56 Levothyroxine Sodium (Synthroid) 25 mcg DAILY06 PO 05/12/21 06:00 05/29/21 04:51 Metoprolol Tartrate (Lopressor) 25 mg BIDWMEALS PO 05/11/21 17:00 05/28/21 08:56 Olanzapine (ZyPREXA) 2.5 mg PRN BID PRN PO PSYCHOSIS 05/11/21 13:15 05/17/21 09:40 DC Olanzapine (ZyPREXA) 5 mg BID PO 05/11/21 21:00 05/12/21 13:43 DC 05/12/21 08:46 Docusate Sodium (Colace) 100 mg 1700 PO 05/11/21 17:00 05/28/21 17:38 Non-Formulary Medication (Ginkgo Biloba ) 120 mg BIDWMEALS PO 05/11/21 17:00 UNV Magnesium Oxide (Magnesium Oxide) 400 mg DAILY PO 05/12/21 09:00 05/28/21 08:57 Multivitamins/ Calcium (Thera-M Plus) 1 tab DAILY PO 05/12/21 09:00 05/28/21 08:57 Fish Oil (Fish Oil) 1,000 mg DAILY PO 05/12/21 09:00 05/23/21 11:15 DC 05/23/21 08:21 Pantoprazole Sodium (Protonix) 40 mg DAILYAC PO 05/12/21 07:30 05/28/21 08:56 Atorvastatin Calcium (Lipitor) 80 mg DAILY PO 05/12/21 09:00 05/21/21 08:39 DC 05/20/21 09:08 Multi-Ingredient Ointment (Analgesic [place]) 1 wendy PRN QID PRN TP MUSCLE PAIN 05/11/21 13:30 Al Hydroxide/Mg Hydroxide (Mylanta Plus Xs) 15 ml PRN AFTMEALHC PRN PO DYSPEPSIA 05/11/21 13:30 Magnesium Hydroxide (Milk Of Magnesia) 2,400 mg PRN QHS PRN PO CONSTIPATION 05/11/21 13:30 Influenza Virus Vaccine Quadrival (Flulaval Quad [id number] Syringe) 0.5 ml ONCE ONCE VAX IM 05/12/21 09:00 05/12/21 09:01 DC 05/12/21 08:49 Divalproex Sodium (Depakote) 375 mg QHS PO 05/12/21 21:00 05/17/21 16:53 DC 05/16/21 20:25 Divalproex Sodium (Depakote) 250 mg DAILY PO 05/13/21 09:00 05/21/21 20:06 DC 05/21/21 08:55 Olanzapine (ZyPREXA) 7.5 mg BID PO 05/12/21 21:00 05/19/21 18:31 DC 05/19/21 11:11 Olanzapine (ZyPREXA) 2.5 mg PRN Q2HR PRN PO PSYCHOSIS 05/17/21 09:45 05/17/21 10:39 DC Lorazepam (Ativan) 1 mg PRN TID PRN PO ANXIETY / AGITATION 05/17/21 09:45 05/22/21 16:57 Olanzapine (ZyPREXA ZYDIS) 2.5 mg PRN Q2HRS PRN PO PSYCHOSIS 05/17/21 10:45 05/27/21 23:01 Divalproex Sodium (Depakote) 500 mg QHS PO 05/17/21 21:00 05/21/21 20:06 DC 05/20/21 20:12 Mirtazapine (Remeron) 7.5 mg QHS PO 05/18/21 21:00 05/20/21 21:43 DC 05/20/21 20:13 Olanzapine (ZyPREXA) 2.5 mg BID PO 05/19/21 21:00 05/22/21 20:16 DC 05/22/21 19:46 Risperidone (RisperDAL) 0.5 mg QHS PO 05/19/21 21:00 05/28/21 20:48 Mirtazapine (Remeron) 15 mg QHS PO 05/21/21 21:00 05/28/21 20:48 Atorvastatin Calcium (Lipitor) 80 mg HS PO 05/21/21 21:00 05/28/21 20:48 Melatonin (Melatonin) 3 mg QHS PO 05/21/21 21:00 05/28/21 20:48 Divalproex Sodium (Depakote Sprinkles) 250 mg DAILY PO 05/22/21 09:00 05/28/21 08:57 Divalproex Sodium (Depakote Sprinkles) 500 mg QHS PO 05/21/21 21:00 05/28/21 20:48 Olanzapine (ZyPREXA) 2.5 mg DAILY PO 05/23/21 09:00 05/23/21 18:11 DC 05/23/21 08:23 Risperidone (RisperDAL) 0.25 mg DAILY PO 05/24/21 09:00 05/28/21 08:57 I have reviewed the current psychotropics carefully including drug interactions. Risk benefit ratio favors no change other than as noted in my dictated progress note. Diagnosis: Problems: (1) Major neurocognitive disorder (2) Anxiety disorder, unspecified (3) Major depressive disorder with psychotic features (4) Dementia, vascular, with depression (5) Dementia, vascular, with delusions (6) Vascular dementia with behavior disturbance EDUARDO YBARRA MD May 29, 2021 07:11
--- NOTE | 2021-05-29 07:35 | PDOC ---
Exam Note: Sam Note: This note is a late entry for 05/28/2021 covers elements not covered in my initial note. Subjective: The patient was seen individually in the evening of 05/28/2021 with Lesley PATINO, discussed and reviewed the chart. The patient slept 5 hours previous night. Patient at times is resistive to medications, takes it with pudding. She is less confused. Improved confusion is due to her psychosis having being resolved. Review of Systems: No CV, , pulmonary, eye, ENT system symptoms on review. Mental Status Exam: The patient is oriented just to herself. Insight and judgment, recent and remote memory, attention and concentration, fund of knowledge is poor consistent with her diagnoses. Laboratory Data: Reviewed. Impression: Major neurocognitive disorder Alzheimer, vascular with delusion, depression, behavioral disturbance. Anxiety disorder, unspecified. Impulse control disorder, unspecified. Plan: Continue current psychotropics. Assessment: Vital Signs/I&O: Vital Signs Date Time Temp Pulse Resp B/P (MAP) Pulse Ox O2 Delivery O2 Flow Rate FiO2 05/29/21 05:37 97.8 51 16 148/71 (96) 96 05/25/21 16:53 Room Air I & O 05/28/21 05/28/21 05/29/21 15:00 23:00 07:00 Intake Total 240 ml 480 ml Balance 240 ml 480 ml Current Medications: Meds: Current Medications Medications (Trade) Dose Ordered Sig/Jordan Route PRN Reason Start Time Stop Time Status Last Admin Dose Admin Acetaminophen (Tylenol) 650 mg PRN Q4HRS PRN PO PAIN 05/11/21 13:15 05/16/21 13:53 Alprazolam (Xanax) 0.5 mg PRN Q4HRS PRN PO ANXIETY / AGITATION 05/11/21 13:15 05/17/21 09:41 DC 05/14/21 23:06 Alprazolam (Xanax) 0.5 mg QHS PO 05/11/21 21:00 05/12/21 13:43 DC 05/11/21 20:27 Ascorbic Acid (Vitamin C) 1,000 mg DAILY PO 05/12/21 09:00 05/28/21 08:57 Bupropion HCl (Wellbutrin Xl) 150 mg QODAY PO 05/12/21 09:00 05/16/21 09:01 DC 05/16/21 08:24 Clonidine HCl (Catapres) 0.1 mg BIDWMEALS PO 05/11/21 17:00 05/28/21 08:56 Divalproex Sodium (Depakote) 125 mg DAILY PO 05/12/21 09:00 05/12/21 13:43 DC 05/12/21 08:46 Divalproex Sodium (Depakote) 250 mg QHS PO 05/11/21 21:00 05/12/21 13:43 DC 05/11/21 20:29 Ferrous Sulfate (Feosol) 325 mg DAILY PO 05/12/21 09:00 05/28/21 08:56 Fluoxetine HCl (PROzac) 20 mg DAILY PO 05/12/21 09:00 05/28/21 08:56 Levothyroxine Sodium (Synthroid) 25 mcg DAILY06 PO 05/12/21 06:00 05/29/21 04:51 Metoprolol Tartrate (Lopressor) 25 mg BIDWMEALS PO 05/11/21 17:00 05/28/21 08:56 Olanzapine (ZyPREXA) 2.5 mg PRN BID PRN PO PSYCHOSIS 05/11/21 13:15 05/17/21 09:40 DC Olanzapine (ZyPREXA) 5 mg BID PO 05/11/21 21:00 05/12/21 13:43 DC 05/12/21 08:46 Docusate Sodium (Colace) 100 mg 1700 PO 05/11/21 17:00 05/28/21 17:38 Non-Formulary Medication (Ginkgo Biloba ) 120 mg BIDWMEALS PO 05/11/21 17:00 UNV Magnesium Oxide (Magnesium Oxide) 400 mg DAILY PO 05/12/21 09:00 05/28/21 08:57 Multivitamins/ Calcium (Thera-M Plus) 1 tab DAILY PO 05/12/21 09:00 05/28/21 08:57 Fish Oil (Fish Oil) 1,000 mg DAILY PO 05/12/21 09:00 05/23/21 11:15 DC 05/23/21 08:21 Pantoprazole Sodium (Protonix) 40 mg DAILYAC PO 05/12/21 07:30 05/28/21 08:56 Atorvastatin Calcium (Lipitor) 80 mg DAILY PO 05/12/21 09:00 05/21/21 08:39 DC 05/20/21 09:08 Multi-Ingredient Ointment (Analgesic [place]) 1 wendy PRN QID PRN TP MUSCLE PAIN 05/11/21 13:30 Al Hydroxide/Mg Hydroxide (Mylanta Plus Xs) 15 ml PRN AFTMEALHC PRN PO DYSPEPSIA 05/11/21 13:30 Magnesium Hydroxide (Milk Of Magnesia) 2,400 mg PRN QHS PRN PO CONSTIPATION 05/11/21 13:30 Influenza Virus Vaccine Quadrival (Flulaval Quad [id number] Syringe) 0.5 ml ONCE ONCE VAX IM 05/12/21 09:00 05/12/21 09:01 DC 05/12/21 08:49 Divalproex Sodium (Depakote) 375 mg QHS PO 05/12/21 21:00 05/17/21 16:53 DC 05/16/21 20:25 Divalproex Sodium (Depakote) 250 mg DAILY PO 05/13/21 09:00 05/21/21 20:06 DC 05/21/21 08:55 Olanzapine (ZyPREXA) 7.5 mg BID PO 05/12/21 21:00 05/19/21 18:31 DC 05/19/21 11:11 Olanzapine (ZyPREXA) 2.5 mg PRN Q2HR PRN PO PSYCHOSIS 05/17/21 09:45 05/17/21 10:39 DC Lorazepam (Ativan) 1 mg PRN TID PRN PO ANXIETY / AGITATION 05/17/21 09:45 05/22/21 16:57 Olanzapine (ZyPREXA ZYDIS) 2.5 mg PRN Q2HRS PRN PO PSYCHOSIS 05/17/21 10:45 05/27/21 23:01 Divalproex Sodium (Depakote) 500 mg QHS PO 05/17/21 21:00 05/21/21 20:06 DC 05/20/21 20:12 Mirtazapine (Remeron) 7.5 mg QHS PO 05/18/21 21:00 05/20/21 21:43 DC 05/20/21 20:13 Olanzapine (ZyPREXA) 2.5 mg BID PO 05/19/21 21:00 05/22/21 20:16 DC 05/22/21 19:46 Risperidone (RisperDAL) 0.5 mg QHS PO 05/19/21 21:00 05/28/21 20:48 Mirtazapine (Remeron) 15 mg QHS PO 05/21/21 21:00 05/28/21 20:48 Atorvastatin Calcium (Lipitor) 80 mg HS PO 05/21/21 21:00 05/28/21 20:48 Melatonin (Melatonin) 3 mg QHS PO 05/21/21 21:00 05/28/21 20:48 Divalproex Sodium (Depakote Sprinkles) 250 mg DAILY PO 05/22/21 09:00 05/28/21 08:57 Divalproex Sodium (Depakote Sprinkles) 500 mg QHS PO 05/21/21 21:00 05/28/21 20:48 Olanzapine (ZyPREXA) 2.5 mg DAILY PO 05/23/21 09:00 05/23/21 18:11 DC 05/23/21 08:23 Risperidone (RisperDAL) 0.25 mg DAILY PO 05/24/21 09:00 05/28/21 08:57 I have reviewed the current psychotropics carefully including drug interactions. Risk benefit ratio favors no change other than as noted in my dictated progress note. Diagnosis: Problems: (1) Major neurocognitive disorder (2) Anxiety disorder, unspecified (3) Major depressive disorder with psychotic features (4) Dementia, vascular, with depression (5) Dementia, vascular, with delusions (6) Vascular dementia with behavior disturbance EDUARDO YBARRA MD May 29, 2021 07:35
[2021-05-29] MEDS: METOPROLOL TART IMMED RELEASE 25 MG TABLET. PO SCH (08:00)
[2021-05-29 09:01] VITALS: BP 148/71
[2021-05-29] MEDS: risperiDONE 0.25 MG TABLET. PO SCH (09:01)
[2021-05-29] MEDS: ASCORBIC ACID 1,000 MG TABLET PO SCH (09:01)
[2021-05-29] MEDS: FERROUS SULFATE 325 MG TABLET. PO SCH (09:01)
[2021-05-29] MEDS: cloNIDine HCL 0.1 MG TABLET PO SCH (09:01)
[2021-05-29] MEDS: MULTIVITAMIN with MINERAL TABLET. PO SCH (09:01)
[2021-05-29] MEDS: MAGNESIUM OXIDE 400 MG TABLET PO SCH (09:01)
[2021-05-29] MEDS: DIVALPROEX 125 MG CAP.SPRINK PO SCH (09:01)
[2021-05-29] MEDS: PANTOPRAZOLE 40 MG TABLET. PO SCH (09:01)
[2021-05-29] MEDS ORDERED: ATORVASTATIN CA80 MG PO (11:20)
[2021-05-29] MEDS ORDERED: METH57CR17 TP (11:26)
[2021-05-29] MEDS ORDERED: DIVA-53 PO (11:31)
[2021-05-29] MEDS ORDERED: DIVA-51 PO (11:31)
[2021-05-29] MEDS ORDERED: MIRT15TA90 PO (11:33)
[2021-05-29] MEDS ORDERED: OLAN5TAB7 PO (11:36)
[2021-05-29] MEDS ORDERED: RISP0.5T62 PO ×2 (11:37→12:14)
[2021-05-29] MEDS ORDERED: LORA-254 PO (11:39)
[2021-05-29] MEDS ORDERED: MAGN400T44 PO (11:41)
[2021-05-29] MEDS ORDERED: MAGN24003 PO (11:43)
[2021-05-29] MEDS ORDERED: MAG-124 PO (11:46)
[2021-05-29] MEDS ORDERED: MAG355OR44 PO (11:47)
[2021-05-29] MEDS ORDERED: PANT40TA6 PO (11:53)
[2021-05-29] MEDS ORDERED: MAG30ORA2 PO (12:04)
[2021-05-29] MEDS ORDERED: MULT-237 PO (12:06)
[2021-05-29] MEDS ORDERED: MULT-480 PO (12:07)
[2021-05-29] MEDS ORDERED: MULT1TAB92 PO (12:08)
[2021-05-29] MEDS ORDERED: MELA3TAB43 PO (12:10)
[2021-05-29] MEDS ORDERED: MELA3TAB4 PO (12:11)
--- NOTE | 2021-05-29 21:59 | PDOC ---
Exam Note: Sam Note: Please also refer to the separate dictated note~for this date of service dictated separately.~Patient seen individually. Discussed the patient with Nursing staff reviewed the chart.~Reviewed interim history and current functioning. Reviewed vital signs,~Labs/ Radiology~and current medications noted below. Continue current treatment with the changes noted in the dictated addendum note Assessment: Vital Signs/I&O: Vital Signs Date Time Temp Pulse Resp B/P (MAP) Pulse Ox O2 Delivery O2 Flow Rate FiO2 05/29/21 09:01 51 148/71 05/29/21 05:37 97.8 16 96 05/25/21 16:53 Room Air I & O 05/28/21 05/28/21 05/29/21 15:00 23:00 07:00 Intake Total 240 ml 480 ml Balance 240 ml 480 ml Current Medications: Meds: Current Medications Medications (Trade) Dose Ordered Sig/Jordan Route PRN Reason Start Time Stop Time Status Last Admin Dose Admin Acetaminophen (Tylenol) 650 mg PRN Q4HRS PRN PO PAIN 05/11/21 13:15 05/29/21 14:12 DC 05/16/21 13:53 Alprazolam (Xanax) 0.5 mg PRN Q4HRS PRN PO ANXIETY / AGITATION 05/11/21 13:15 05/17/21 09:41 DC 05/14/21 23:06 Alprazolam (Xanax) 0.5 mg QHS PO 05/11/21 21:00 05/12/21 13:43 DC 05/11/21 20:27 Ascorbic Acid (Vitamin C) 1,000 mg DAILY PO 05/12/21 09:00 05/29/21 14:12 DC 05/29/21 09:01 Bupropion HCl (Wellbutrin Xl) 150 mg QODAY PO 05/12/21 09:00 05/16/21 09:01 DC 05/16/21 08:24 Clonidine HCl (Catapres) 0.1 mg BIDWMEALS PO 05/11/21 17:00 05/29/21 14:12 DC 05/29/21 09:01 Divalproex Sodium (Depakote) 125 mg DAILY PO 05/12/21 09:00 05/12/21 13:43 DC 05/12/21 08:46 Divalproex Sodium (Depakote) 250 mg QHS PO 05/11/21 21:00 05/12/21 13:43 DC 05/11/21 20:29 Ferrous Sulfate (Feosol) 325 mg DAILY PO 05/12/21 09:00 05/29/21 14:12 DC 05/29/21 09:01 Fluoxetine HCl (PROzac) 20 mg DAILY PO 05/12/21 09:00 05/29/21 14:12 DC 05/29/21 09:01 Levothyroxine Sodium (Synthroid) 25 mcg DAILY06 PO 05/12/21 06:00 05/29/21 14:12 DC 05/29/21 04:51 Metoprolol Tartrate (Lopressor) 25 mg BIDWMEALS PO 05/11/21 17:00 05/29/21 14:12 DC 05/28/21 08:56 Olanzapine (ZyPREXA) 2.5 mg PRN BID PRN PO PSYCHOSIS 05/11/21 13:15 05/17/21 09:40 DC Olanzapine (ZyPREXA) 5 mg BID PO 05/11/21 21:00 05/12/21 13:43 DC 05/12/21 08:46 Docusate Sodium (Colace) 100 mg 1700 PO 05/11/21 17:00 05/29/21 14:12 DC 05/28/21 17:38 Non-Formulary Medication (Ginkgo Biloba ) 120 mg BIDWMEALS PO 05/11/21 17:00 UNV Magnesium Oxide (Magnesium Oxide) 400 mg DAILY PO 05/12/21 09:00 05/29/21 14:12 DC 05/29/21 09:01 Multivitamins/ Calcium (Thera-M Plus) 1 tab DAILY PO 05/12/21 09:00 05/29/21 14:12 DC 05/29/21 09:01 Fish Oil (Fish Oil) 1,000 mg DAILY PO 05/12/21 09:00 05/23/21 11:15 DC 05/23/21 08:21 Pantoprazole Sodium (Protonix) 40 mg DAILYAC PO 05/12/21 07:30 05/29/21 14:12 DC 05/29/21 09:01 Atorvastatin Calcium (Lipitor) 80 mg DAILY PO 05/12/21 09:00 05/21/21 08:39 DC 05/20/21 09:08 Multi-Ingredient Ointment (Analgesic [place]) 1 wendy PRN QID PRN TP MUSCLE PAIN 05/11/21 13:30 05/29/21 14:12 DC Al Hydroxide/Mg Hydroxide (Mylanta Plus Xs) 15 ml PRN AFTMEALHC PRN PO DYSPEPSIA 05/11/21 13:30 05/29/21 14:12 DC Magnesium Hydroxide (Milk Of Magnesia) 2,400 mg PRN QHS PRN PO CONSTIPATION 05/11/21 13:30 05/29/21 14:12 DC Influenza Virus Vaccine Quadrival (Flulaval Quad [id number] Syringe) 0.5 ml ONCE ONCE VAX IM 05/12/21 09:00 05/12/21 09:01 DC 05/12/21 08:49 Divalproex Sodium (Depakote) 375 mg QHS PO 05/12/21 21:00 05/17/21 16:53 DC 05/16/21 20:25 Divalproex Sodium (Depakote) 250 mg DAILY PO 05/13/21 09:00 05/21/21 20:06 DC 05/21/21 08:55 Olanzapine (ZyPREXA) 7.5 mg BID PO 05/12/21 21:00 05/19/21 18:31 DC 05/19/21 11:11 Olanzapine (ZyPREXA) 2.5 mg PRN Q2HR PRN PO PSYCHOSIS 05/17/21 09:45 05/17/21 10:39 DC Lorazepam (Ativan) 1 mg PRN TID PRN PO ANXIETY / AGITATION 05/17/21 09:45 05/29/21 14:12 DC 05/22/21 16:57 Olanzapine (ZyPREXA ZYDIS) 2.5 mg PRN Q2HRS PRN PO PSYCHOSIS 05/17/21 10:45 05/29/21 14:12 DC 05/27/21 23:01 Divalproex Sodium (Depakote) 500 mg QHS PO 05/17/21 21:00 05/21/21 20:06 DC 05/20/21 20:12 Mirtazapine (Remeron) 7.5 mg QHS PO 05/18/21 21:00 05/20/21 21:43 DC 05/20/21 20:13 Olanzapine (ZyPREXA) 2.5 mg BID PO 05/19/21 21:00 05/22/21 20:16 DC 05/22/21 19:46 Risperidone (RisperDAL) 0.5 mg QHS PO 05/19/21 21:00 05/29/21 14:12 DC 05/28/21 20:48 Mirtazapine (Remeron) 15 mg QHS PO 05/21/21 21:00 05/29/21 14:12 DC 05/28/21 20:48 Atorvastatin Calcium (Lipitor) 80 mg HS PO 05/21/21 21:00 05/29/21 14:12 DC 05/28/21 20:48 Melatonin (Melatonin) 3 mg QHS PO 05/21/21 21:00 05/29/21 14:12 DC 05/28/21 20:48 Divalproex Sodium (Depakote Sprinkles) 250 mg DAILY PO 05/22/21 09:00 05/29/21 14:12 DC 05/29/21 09:01 Divalproex Sodium (Depakote Sprinkles) 500 mg QHS PO 05/21/21 21:00 05/29/21 14:12 DC 05/28/21 20:48 Olanzapine (ZyPREXA) 2.5 mg DAILY PO 05/23/21 09:00 05/23/21 18:11 DC 05/23/21 08:23 Risperidone (RisperDAL) 0.25 mg DAILY PO 05/24/21 09:00 05/29/21 14:12 DC 05/29/21 09:01 I have reviewed the current psychotropics carefully including drug interactions. Risk benefit ratio favors no change other than as noted in my dictated progress note. Diagnosis: Problems: (1) Major neurocognitive disorder (2) Anxiety disorder, unspecified (3) Major depressive disorder with psychotic features (4) Dementia, vascular, with depression (5) Dementia, vascular, with delusions (6) Vascular dementia with behavior disturbance EDUARDO YBARRA MD May 29, 2021 21:59
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
== END 2021-05-29 13:45 | DRG 57 ==
LOC: GEROPSY 11:50
PROVIDERS: ADMIT Psychiatry & Neurology Psychiatry; ATTEND Psychiatry & Neurology Psychiatry
DX: G30.9 Alzheimer's disease, unspecified (principal); F01.51 Vascular dementia, unspecified severity, with behavioral disturbance; F32.3 Major depressive disorder, single episode, severe with psychotic features; C85.10 Unspecified B-cell lymphoma, unspecified site; F02.81 Dementia in other diseases classified elsewhere, unspecified severity, with behavioral disturbance; G93.1 Anoxic brain damage, not elsewhere classified; E78.5 Hyperlipidemia, unspecified; F41.1 Generalized anxiety disorder; F63.9 Impulse disorder, unspecified; I10 Essential (primary) hypertension; I25.10 Atherosclerotic heart disease of native coronary artery without angina pectoris; Z20.822 Contact with and (suspected) exposure to COVID-19; R13.10 Dysphagia, unspecified; Z79.899 Other long term (current) drug therapy; Z85.038 Personal history of other malignant neoplasm of large intestine; Z87.891 Personal history of nicotine dependence
CPT/HCPCS: 36415; 70450; 80053; 80061; 80164; 81001; 82140; 82306; 82607; 83036; 83540; 83550; 83735; 84436; 84443; 84480; 85025; 85379; 86592; 87086; 87147; 90471; 90686; 93005; U0003; 97116; 97530